=== PATIENT | female | born 1950 | race Caucasian/White ===

== ENCOUNTER 2017-12-23 14:26 | Emergency (ER) | payer OTHER ==
--- NOTE | 2017-12-23 16:50 | RAD REPORT ---
EXAM DESCRIPTION: VAS - CP - 12/23/2017 4:30 pm CLINICAL HISTORY: history of carotid artery plaque Syncope, CVA COMPARISON: CAROTID ARTERY BILATERAL dated 07/06/2007; HEAD BRAIN W O CONTRAST dated 06/15/2007 TECHNIQUE: Real-time sonographic evaluation of both carotid systems was performed. Doppler interroga tion was performed with waveform tracing bilaterally. FINDINGS: Normal high resistance waveforms are noted in both external carotid arteries. The common c arotid arteries and internal carotid arteries show normal low resistance waveforms. Significant hard plaquing is seen in both proximal internal carotid arteries. Peak systolic velocity is elevated in the proximal right ICA is 285 cm/second with elevated ICA/CCA ratio of 3.2. Peak systo lic velocity is elevated in the left mid internal carotid artery to 500 cm/second with ICA/CCA ratio measuring 6.3. Antegrade flow seen in both vertebral arteries. IMPRESSION: Significant multifocal atheromatous plaquing involving both proximal internal carotid ar teries. Bilateral hemodynamically significant carotid stenosis are present - including moderate to severe hem odynamically significant stenosis involving the proximal right ICA and severe hemodynamically signifi cant stenosis at the level the left mid ICA. Consider followup MR or CT angiography of the neck vessels for further detailed assessment of these f indings.
--- NOTE | 2017-12-23 17:29 | ER ---
Nurse's Notes [facility] Name: Rian Merlos Age: 67 yrs Sex: Female : 1950 Arrival Date: 12/23/2017 Time: 14:31 Bed 28 Private MD: None, None Diagnosis: Bilateral Carotid Artery Stenosis;Hypertensive heart disease Presentation: 12/23 14:39 Presenting complaint: Patient states: "I had a [facility] screening done yesterday and hb they recommended I follow up with my doctor within 24 hrs, but Dr. Rubio can't see me until Jan 01.". Transition of care: patient was not received from another setting of care. Onset of symptoms was December 23, 2017. Risk Assessment: Do you want to hurt yourself or someone else? Patient reports no desire to harm self or others. Care prior to arrival: None. 14:39 Method Of Arrival: Ambulatory hb 14:39 Acuity: GEOVANNA 4 hb 15:17 Initial Sepsis Screen: Does the patient meet any 2 criteria? No. Patient's initial rv sepsis screen is negative. Does the patient have a suspected source of infection? No. Patient's initial sepsis screen is negative. Historical: - Allergies: 14:40 Morphine; hb - PSHx: 14:40 titanium plate in neck; Hysterectomy; Knee surgery; cyst from breast; hb - Immunization history:: Adult Immunizations up to date. - Social history:: Smoking status: Patient/guardian denies using tobacco. - Ebola Screening: : No symptoms or risks identified at this time. Screenin:17 Abuse screen: Denies threats or abuse. Denies injuries from another. Nutritional rv screening: No deficits noted. Tuberculosis screening: No symptoms or risk factors identified. Fall Risk None identified. Assessment: 15:13 General: Appears in no apparent distress. comfortable, Behavior is calm, cooperative. rv Pain: Denies pain. Neuro: Level of Consciousness is awake, alert, obeys commands, Oriented to person, place, time, situation. Cardiovascular: Capillary refill < 3 seconds. Respiratory: Airway is patent. GI: No signs and/or symptoms were reported involving the gastrointestinal system. : No signs and/or symptoms were reported regarding the genitourinary system. EENT: No signs and/or symptoms were reported regarding the EENT system. Derm: Skin is intact. Vital Signs: 14:38 BP 149 / 89; Pulse 89; Resp 14; Temp 97.9; Pulse Ox 97% on R/A; hb 16:01 BP 186 / 81; Pulse 64; Pulse Ox 98% ; rv 16:34 BP 153 / 122; Pulse 74; Pulse Ox 99% on R/A; rv ED Course: 14:31 Patient arrived in ED. mr 14:32 None, None is Private Physician. mr 14:40 Triage completed. hb 14:40 Arm band placed on right wrist. hb 15:05 JulioC Scanlon PA is PHCP. cp 15:05 Moncho Wing MD is Attending Physician. cp 15:17 Patient has correct armband on for positive identification. Bed in low position. Call rv light in reach. Side rails up X 1. Adult w/ patient. Pulse ox on. NIBP on. 16:27 Ultrasound completed. Patient tolerated well. lc3 16:33 Patient moved back from ultrasound. lc3 17:42 No provider procedures requiring assistance completed. Patient did not have IV access rv during this emergency room visit. Administered Medications: 17:41 Drug: Aspirin Chewable Tablet 324 mg Route: PO; rv 17:41 Follow up: Response: Medication administered at discharge. rv 17:41 Drug: Metoprolol 25 mg Route: PO; rv 17:41 Follow up: Response: Medication administered at discharge. rv Outcome: 17:28 Discharge ordered by . cp 17:42 Discharged to home ambulatory. rv 17:42 Condition: good 17:42 Discharge instructions given to patient, Instructed on discharge instructions, follow up and referral plans. medication usage, Prescriptions given X 1. 17:43 Patient left the ED. rv Signatures: Charlette Cabrera mr Julio C Scanlon PA PA cp Eduard Dorsey lc3 Giovana Bravo, RN RN Conor Calixto RN RN rv
--- NOTE | 2017-12-23 17:29 | EDPHYS ---
Physician Documentation [facility] Name: Rian Merlos Age: 67 yrs Sex: Female : 1950 Arrival Date: 12/23/2017 Time: 14:31 Bed 28 Private MD: None, None ED Physician Moncho Wing HPI: 12/23 15:15 This 67 yrs old Female presents to ER via Ambulatory with complaints of Pt cp was told to come to ER. 15:15 abnormal test performed by [facility] Screening yesterday. cp 15:15 Patient reports abnormal results of carotid plaque screening test yesterday. No cp specific complaints expressed. Historical: - Allergies: 14:40 Morphine; hb - PSHx: 14:40 titanium plate in neck; Hysterectomy; Knee surgery; cyst from breast; hb - Immunization history:: Adult Immunizations up to date. - Social history:: Smoking status: Patient/guardian denies using tobacco. - Ebola Screening: : No symptoms or risks identified at this time. ROS: 15:20 Constitutional: Negative for body aches, chills, fever, poor PO intake. cp 15:20 Eyes: Negative for injury, pain, redness, and discharge. cp 15:20 ENT: Negative for drainage from ear(s), ear pain, sore throat, difficulty swallowing, difficulty handling secretions. 15:20 Cardiovascular: Negative for chest pain, edema, palpitations. 15:20 Respiratory: Negative for cough, shortness of breath, wheezing. 15:20 Abdomen/GI: Negative for abdominal pain, nausea, vomiting, and diarrhea, constipation. 15:20 : Negative for urinary symptoms. 15:20 Neuro: Negative for altered mental status, dizziness, headache, speech changes, syncope, near syncope, weakness. 15:20 All other systems are negative. Exam: 15:22 Constitutional: The patient appears in no acute distress, alert, awake, cp non-diaphoretic, non-toxic, well developed, well nourished. 15:22 Head/Face: Normocephalic, atraumatic. cp 15:22 Eyes: Periorbital structures: appear normal, Conjunctiva: normal, no exudate, no injection, Lids and lashes: appear normal, bilaterally. 15:22 ENT: External ear(s): are unremarkable, Nose: is normal, Mouth: is normal, Posterior pharynx: is normal, airway is patent, no erythema, no exudate, Voice: is normal. 15:22 Neck: ROM/movement: is normal, is supple, without pain, no range of motions limitations, no meningismus, no nuchal rigidity. 15:22 Chest/axilla: Inspection: normal, Palpation: is normal, no crepitus, no tenderness. 15:22 Cardiovascular: Rate: normal, Rhythm: regular, Pulses: Pulses are 2+ in right radial artery and left radial artery. Heart sounds: murmur, not appreciated, rub, not appreciated, gallop, not appreciated, Edema: is not appreciated, JVD: is not appreciated. 15:22 Respiratory: the patient does not display signs of respiratory distress, Respirations: normal, no use of accessory muscles, no retractions, no splinting, no tachypnea, labored breathing, is not present, Breath sounds: are clear throughout, no decreased breath sounds, no stridor, no wheezing. 15:22 Abdomen/GI: Inspection: abdomen appears normal, Bowel sounds: active, all quadrants, Palpation: abdomen is soft and non-tender, in all quadrants, rebound tenderness, is not appreciated, voluntary guarding, is not appreciated, involuntary guarding, is not appreciated. 15:22 Back: pain, is absent, ROM is normal. Vital Signs: 14:38 BP 149 / 89; Pulse 89; Resp 14; Temp 97.9; Pulse Ox 97% on R/A; hb 16:01 BP 186 / 81; Pulse 64; Pulse Ox 98% ; rv 16:34 BP 153 / 122; Pulse 74; Pulse Ox 99% on R/A; rv MDM: 15:05 Patient medically screened. 17:25 Data reviewed: vital signs, nurses notes, radiologic studies, ultrasound. 12/23 15:13 Order name: Carotid Artery Bilateral US 12/23 16:50 Order name: US; Complete Time: 17:08 EDMS Administered Medications: 17:41 Drug: Aspirin Chewable Tablet 324 mg Route: PO; rv 17:41 Follow up: Response: Medication administered at discharge. rv 17:41 Drug: Metoprolol 25 mg Route: PO; rv 17:41 Follow up: Response: Medication administered at discharge. rv Disposition: 19:09 Co-signature as Attending Physician, Moncho Wing MD. rn Disposition: 12/23/17 17:28 Discharged to Home. Impression: Bilateral Carotid Artery Stenosis, Hypertensive heart disease. - Condition is Stable. - Discharge Instructions: Hypertension, Carotid Angioplasty With Stent, How to Take Your Blood Pressure, [id number], Aspirin and Your Heart, Form - Blood Pressure Record Sheet. - Prescriptions for Metoprolol Tartrate 25 mg Oral Tablet - take 1 tablet by ORAL route 2 times per day with a meal; 20 tablet. - Medication Reconciliation Form, Thank You Letter, Antibiotic Education, Prescription Opioid Use form. - Follow up: Private Physician; When: 1 - 2 days; Reason: carotid stenosis. - Problem is new. - Symptoms are unchanged. Signatures: Dispatcher [employer] EDMS Moncho Wing MD MD rn Julio C Scanlon PA PA cp Giovana Bravo, RADHA RN Conor Reyna RN RN rv Corrections: (The following items were deleted from the chart) 17:31 17:28 12/23/2017 17:28 Discharged to Home. Impression: Bilateral Carotid Artery cp Stenosis. Condition is Stable. Forms are Medication Reconciliation Form, Thank You Letter, Antibiotic Education, Prescription Opioid Use. Follow up: Private Physician; When: 1 - 2 days; Reason: carotid stenosis. Problem is new. Symptoms are unchanged. cp 17:43 17:31 12/23/2017 17:28 Discharged to Home. Impression: Bilateral Carotid Artery rv Stenosis; Hypertensive heart disease. Condition is Stable. Discharge Instructions: Carotid Angioplasty With Stent, How to Take Your Blood Pressure, [id number], Aspirin and Your Heart, Form - Blood Pressure Record Sheet. Forms are Medication Reconciliation Form, Thank You Letter, Antibiotic Education, Prescription Opioid Use. Follow up: Private Physician; When: 1 - 2 days; Reason: carotid stenosis. Problem is new. Symptoms are unchanged. cp
[2017-12-23] MEDS ORDERED: METOPROLOL TAR 25 MG TAB ONE (17:39)
[2017-12-23 17:57] VITALS: TEMP 97.9
[2017-12-23 17:59] VITALS: BP 153/122; O2SAT 99
== END 2017-12-23 17:43 | disposition home or self-care (01) ==
LOC: ER 14:26
DX: I65.23 Occlusion and stenosis of bilateral carotid arteries (principal); I11.9 Hypertensive heart disease without heart failure; Z88.5 Allergy status to narcotic agent
CPT/HCPCS: 93880; 99284

== ENCOUNTER 2018-01-08 17:18 | Emergency (ER) | payer OTHER ==
[2018-01-08] MEDS ORDERED: HYDROCODONE/APAP 7.5/325 MG TAB ONE (17:46)
--- NOTE | 2018-01-08 18:18 | EDPHYS ---
Physician Documentation [facility] Name: Rian Merlos Age: 67 yrs Sex: Female : 1950 Arrival Date: 01/08/2018 Time: 17:21 Bed 14 Private MD: ED Physician Flip Contreras HPI: 01/08 17:42 This 67 yrs old Female presents to ER via Wheelchair with complaints of Foot jr8 Injury. 17:42 The patient presents with pain, that is acute, tenderness. The complaints affect the jr8 right foot. Context: The problem was sustained at home, resulted from the patient falling. Onset: The symptoms/episode began/occurred acutely, today. Modifying factors: The symptoms are alleviated by nothing. the symptoms are aggravated by weight bearing. Associated signs and symptoms: The patient has no apparent associated signs or symptoms. Severity of symptoms: At their worst the symptoms were moderate, in the emergency department the symptoms are unchanged. The patient has not experienced similar symptoms in the past. The patient has not recently seen a physician. Stated that her stool collapsed causing her to fall to ground. Right foot/heel region with moderate pain. Does not know how she did it exactly . Historical: - Allergies: 17:23 Morphine; sg - Home Meds: 17:37 gabapentin oral oral [Active]; Plavix 75 mg Oral tab 1 tab once daily [Active]; iw amlodipine oral [Active]; aspirin 81 mg Oral TbEC 1 tab once daily [Active]; - PMHx: 17:38 Hypertension; Hyperlipidemia; Myocardial infarction; iw 17:41 DVT; iw - PSHx: 17:23 titanium plate in neck; Hysterectomy; Knee surgery; cyst from breast; sg 17:41 Heart stents; iw - Immunization history:: Adult Immunizations up to date. - Social history:: Smoking status: Patient/guardian denies using tobacco. - Ebola Screening: : Patient negative for fever greater than or equal to 101.5 degrees Fahrenheit, and additional compatible Ebola Virus Disease symptoms Patient denies exposure to infectious person Patient denies travel to an Ebola-affected area in the 21 days before illness onset No symptoms or risks identified at this time. ROS: 17:42 Eyes: Negative for injury, pain, redness, and discharge, ENT: Negative for injury, jr8 pain, and discharge, Neck: Negative for injury, pain, and swelling, Cardiovascular: Negative for chest pain, palpitations, and edema, Respiratory: Negative for shortness of breath, cough, wheezing, and pleuritic chest pain, Abdomen/GI: Negative for abdominal pain, nausea, vomiting, diarrhea, and constipation, Back: Negative for injury and pain, Skin: Negative for injury, rash, and discoloration, Neuro: Negative for headache, weakness, numbness, tingling, and seizure. 17:42 MS/extremity: Positive for pain, tenderness, of the right dorsum of foot and heel, Negative for decreased range of motion, ecchymosis, paresthesias. Exam: 17:42 Eyes: Pupils equal round and reactive to light, extra-ocular motions intact. Lids and jr8 lashes normal. Conjunctiva and sclera are non-icteric and not injected. Cornea within normal limits. Periorbital areas with no swelling, redness, or edema. ENT: Nares patent. No nasal discharge, no septal abnormalities noted. Tympanic membranes are normal and external auditory canals are clear. Oropharynx with no redness, swelling, or masses, exudates, or evidence of obstruction, uvula midline. Mucous membranes moist. Neck: Trachea midline, no thyromegaly or masses palpated, and no cervical lymphadenopathy. Supple, full range of motion without nuchal rigidity, or vertebral point tenderness. No Meningismus. Cardiovascular: Regular rate and rhythm with a normal S1 and S2. No gallops, murmurs, or rubs. Normal PMI, no JVD. No pulse deficits. Respiratory: Lungs have equal breath sounds bilaterally, clear to auscultation and percussion. No rales, rhonchi or wheezes noted. No increased work of breathing, no retractions or nasal flaring. Abdomen/GI: Soft, non-tender, with normal bowel sounds. No distension or tympany. No guarding or rebound. No evidence of tenderness throughout. Back: No spinal tenderness. No costovertebral tenderness. Full range of motion. Skin: Warm, dry with normal turgor. Normal color with no rashes, no lesions, and no evidence of cellulitis. Neuro: Awake and alert, GCS 15, oriented to person, place, time, and situation. Cranial nerves II-XII grossly intact. Motor strength 5/5 in all extremities. Sensory grossly intact. Cerebellar exam normal. Normal gait. 17:42 Musculoskeletal/extremity: Extremities: grossly normal except: noted in the right foot: pain, tenderness, ROM: intact in all extremities, Circulation is intact in all extremities. Sensation intact. Vital Signs: 17:29 BP 168 / 76; Pulse 101; Resp 18; Pulse Ox 98% on R/A; tw2 18:38 BP 148 / 69; Pulse 86; Resp 17; Pulse Ox 98% on R/A; tw2 Procedures: 18:15 Splinting: Splint applied to right foot using Ortho 3D boot, applied by nurse. Examined jr8 by me, post splint application: neurovascular intact, 2+ distal pulses palpable, brisk capillary refill noted, Patient tolerated well. MDM: 17:30 Patient medically screened. jr8 18:15 Data reviewed: vital signs, nurses notes, radiologic studies, plain films, and as a jr8 result, I will discharge patient. Data interpreted: Pulse oximetry: on room air is 98 %. Interpretation: normal. Counseling: I had a detailed discussion with the patient and/or guardian regarding: the historical points, exam findings, and any diagnostic results supporting the discharge/admit diagnosis, radiology results, the need for outpatient follow up, a orthopedic surgeon, to return to the emergency department if symptoms worsen or persist or if there are any questions or concerns that arise at home. 01/08 17:34 Order name: Foot Right 3 View XRAY jr8 01/08 18:14 Order name: Splint; Complete Time: 18:38 jr8 Administered Medications: 17:40 Drug: [place] (7.5 mg-325 mg) 1 tabs Route: PO; tw2 18:37 Follow up: Response: No adverse reaction; Pain is decreased tw2 Disposition: 01/08/18 18:17 Discharged to Home. Impression: Displaced fracture of fifth metatarsal bone, right foot. - Condition is Stable. - Discharge Instructions: Avulsion Fracture of the Foot. - Prescriptions for Ultracet 37.5- 325 mg Oral Tablet - take 1 tablet by ORAL route every 6 hours - for up to 5 days; do not exceed 8 tablets per day.; 30 tablet. - Medication Reconciliation Form, Thank You Letter, Antibiotic Education, Prescription Opioid Use form. - Follow up: Neil Saba DPM; When: 5 - 6 days; Reason: Recheck today's complaints, Continuance of care, Re-evaluation by your physician. Follow up: Poncho Clark DPM; When: 2 - 3 days; Reason: Recheck today's complaints, Continuance of care, Re-evaluation by your physician. - Problem is new. - Symptoms have improved. Addendum: 01/10/2018 08:12 Co-signature as Attending Physician, Flip Contreras MD I agree with the assessment and w a plan of care. Signatures: Dispatcher [employer] EDMS Ochoa Scales RN RN Soco Chatterjee RN RN Hugo Jay PA PA jr8 Chio Goel RN RN tw2 Flip Contreras MD MD il Corrections: (The following items were deleted from the chart) 01/08 18:43 18:17 01/08/2018 18:17 Discharged to Home. Impression: Displaced fracture of fifth tw2 metatarsal bone, right foot. Condition is Stable. Forms are Medication Reconciliation Form, Thank You Letter, Antibiotic Education, Prescription Opioid Use. Follow up: Dr. Poncho Clark; When: 2 - 3 days; Reason: Recheck today's complaints, Continuance of care, Re-evaluation by your physician. Problem is new. Symptoms have improved. jr8
--- NOTE | 2018-01-08 18:18 | ER ---
Nurse's Notes [facility] Name: Rian Merlos Age: 67 yrs Sex: Female : 1950 Arrival Date: 01/08/2018 Time: 17:21 Bed 14 Private MD: Diagnosis: Displaced fracture of fifth metatarsal bone, right foot Presentation: 01/08 17:24 Presenting complaint: Patient states: pt went to sit on a small stool this morning, iw stool broke and she fell back and somehow twisted her right foot but doesn't remember exactly how she did it , no other injury, has pain to right heel, and top of foot, appears red, swollen, tender to touch. 17:24 Acuity: GEOVANNA 4 iw 17:26 Transition of care: patient was not received from another setting of care. Onset of tw2 symptoms was January 08, 2018. Risk Assessment: Do you want to hurt yourself or someone else? Patient reports no desire to harm self or others. Initial Sepsis Screen: Does the patient meet any 2 criteria? No. Patient's initial sepsis screen is negative. Does the patient have a suspected source of infection? No. Patient's initial sepsis screen is negative. Care prior to arrival: None. 17:26 Method Of Arrival: Wheelchair tw2 Triage Assessment: 17:31 General: Appears uncomfortable. Injury Description: fell backwards sitting on stool, tw2 thinks she rolled her right ankle. Historical: - Allergies: 17:23 Morphine; sg - Home Meds: 17:37 gabapentin oral oral [Active]; Plavix 75 mg Oral tab 1 tab once daily [Active]; iw amlodipine oral [Active]; aspirin 81 mg Oral TbEC 1 tab once daily [Active]; - PMHx: 17:38 Hypertension; Hyperlipidemia; Myocardial infarction; iw 17:41 DVT; iw - PSHx: 17:23 titanium plate in neck; Hysterectomy; Knee surgery; cyst from breast; sg 17:41 Heart stents; iw - Immunization history:: Adult Immunizations up to date. - Social history:: Smoking status: Patient/guardian denies using tobacco. - Ebola Screening: : Patient negative for fever greater than or equal to 101.5 degrees Fahrenheit, and additional compatible Ebola Virus Disease symptoms Patient denies exposure to infectious person Patient denies travel to an Ebola-affected area in the 21 days before illness onset No symptoms or risks identified at this time. Screenin:26 Abuse screen: Denies threats or abuse. Nutritional screening: No deficits noted. tw2 Tuberculosis screening: No symptoms or risk factors identified. Fall Risk None identified. Assessment: 17:27 General: Appears uncomfortable, Behavior is appropriate for age. Pain: Complains of tw2 pain in right foot. Neuro: Level of Consciousness is awake, alert, obeys commands, Oriented to person, place, time, situation. Cardiovascular: Denies chest pain, shortness of breath, Capillary refill < 3 seconds Patient's skin is warm and dry. 17:29 Respiratory: Airway is patent Respiratory effort is even, unlabored, Respiratory tw2 pattern is regular, symmetrical. GI: No signs and/or symptoms were reported involving the gastrointestinal system. : No signs and/or symptoms were reported regarding the genitourinary system. EENT: No signs and/or symptoms were reported regarding the EENT system. Derm: No signs and/or symptoms reported regarding the dermatologic system. Musculoskeletal: Circulation, motion, and sensation intact. Swelling present in right foot. 18:38 Reassessment: Patient appears in no apparent distress at this time. Patient and/or tw2 family updated on plan of care and expected duration. Pain level reassessed. Patient is alert, oriented x 3, equal unlabored respirations, skin warm/dry/pink. Patient states feeling better. Vital Signs: 17:29 BP 168 / 76; Pulse 101; Resp 18; Pulse Ox 98% on R/A; tw2 18:38 BP 148 / 69; Pulse 86; Resp 17; Pulse Ox 98% on R/A; tw2 ED Course: 17:21 Patient arrived in ED. mr 17:22 Arm band placed on. sg 17:25 Chio Goel, RN is Primary Nurse. tw2 17:26 Bed in low position. Call light in reach. Pulse ox on. NIBP on. tw2 17:29 Hugo Ochoa PA is PHCP. jr8 17:29 Flip Contreras MD is Attending Physician. jr8 17:34 Triage completed. iw 18:04 X-ray completed. Portable x-ray completed in exam room. Patient tolerated procedure kp1 well. 18:10 Foot Right 3 View XRAY In Process Unspecified. EDMS 18:16 Neil Saba DPM is Referral Physician. jr8 18:16 Referral Physician role handed off by Neil Saba DPM jr8 18:16 Poncho Clark DPM is Referral Physician. jr8 18:41 No provider procedures requiring assistance completed. Patient did not have IV access tw2 during this emergency room visit. Administered Medications: 17:40 Drug: [place] (7.5 mg-325 mg) 1 tabs Route: PO; tw2 18:37 Follow up: Response: No adverse reaction; Pain is decreased tw2 Outcome: 18:17 Discharge ordered by MD. jr8 18:41 Discharged to home via wheelchair, with family. tw2 18:41 Condition: stable 18:41 Discharge instructions given to patient, family, Instructed on discharge instructions, follow up and referral plans. safety practices, low fracture boot Demonstrated understanding of instructions, follow-up care, medications, fracture boot Prescriptions given X 1. 18:43 Patient left the ED. tw2 Signatures: Dispatcher [employer] EDMS Ochoa Scales RN RN Charlette Cabrera mr Soco Chatterjee, Hugo Thomas RN, PA PA jr8 Chio Goel RN RN tw2 Mar Watters 1
--- NOTE | 2018-01-08 18:49 | RAD REPORT ---
EXAM DESCRIPTION: RAD - Foot Right 3 View - 01/08/2018 6:12 pm CLINICAL HISTORY: Foot pain, twisting injury COMPARISON: None. FINDINGS: At the lateral base fifth metatarsal there is a triangular shaped bone density detached fr om the metatarsal. This transverse orientation is typical location for Landaverde fracture. There is some suggestion of cortication along the fracture line. This could indicate a fracture is subacute or even remote. Correlation is needed for any localizing symptoms. No other evidence for fracture. No other acute bone or joint finding. No air or foreign body in the soft tissues. IMPRESSION: Small Landaverde fracture is present lateral base of the fifth metatarsal. Fracture findings are not definitive for an acute process. Correlation is needed with any point tende rness at the base of the fifth metatarsal and any past history of a similar mechanism of injury.
[2018-01-08 18:51] VITALS: O2SAT 98
[2018-01-08 18:52] VITALS: BP 148/69
== END 2018-01-08 18:43 | disposition home or self-care (01) ==
LOC: ER 17:18
DX: S92.351A Displaced fracture of fifth metatarsal bone, right foot, initial encounter for closed fracture (principal); W19.XXXA Unspecified fall, initial encounter; Y93.9 Activity, unspecified; Y92.009 Unspecified place in unspecified non-institutional (private) residence as the place of occurrence of the external cause; I10 Essential (primary) hypertension; E78.5 Hyperlipidemia, unspecified; Z86.718 Personal history of other venous thrombosis and embolism; Z79.01 Long term (current) use of anticoagulants; Z79.82 Long term (current) use of aspirin; Z88.5 Allergy status to narcotic agent; Z95.818 Presence of other cardiac implants and grafts; I25.2 Old myocardial infarction
CPT/HCPCS: 99284

== ENCOUNTER 2020-02-03 08:07 | Emergency (ER) | payer OTHER ==
[2020-02-03] MEDS ORDERED: ONDANSETRON 4 MG (ODT) TAB ONE (08:58)
[2020-02-03] MEDS ORDERED: HYDROCODONE/APAP 10/325 TAB ONE (08:58)
--- NOTE | 2020-02-03 09:51 | EDPHYS ---
Physician Documentation [facility] Name: Rian Merlos Age: 69 yrs Sex: Female : 1950 Arrival Date: 02/03/2020 Time: 08:08 Bed 2 Private MD: ED Physician Prabhjot Foreman HPI: 02/02 09:12 This 69 yrs old Female presents to ER via Wheelchair with complaints of Foot kb Pain, Leg Pain. 09:12 The patient presents with pain, that is chronic. The complaints affect the left foot. kb Context: The problem was sustained at home, resulted from a chronic condition, the patient is not able to bear weight, the patient is not able to ambulate. Onset: The symptoms/episode began/occurred this morning. Modifying factors: The symptoms are alleviated by nothing, the symptoms are aggravated by weight bearing, movement. Associated signs and symptoms: The patient has no apparent associated signs or symptoms. Severity of symptoms: At their worst the symptoms were moderate, in the emergency department the symptoms are unchanged. The patient has experienced similar episodes in the past, chronically. The patient has not recently seen a physician. Pt reports left foot pain that started during the night and has persisted after getting out of bed. States she has a history of neuropathy so she has tingling, numbness and pain to bilateral feet, worse at night. States she wants to find out what is wrong. I recommended follow up with neurologist and pt told me she has already been to Dr Gutierres for this and he recommended she see pain management. . Historical: - Allergies: 08:27 Morphine; iw - PMHx: 08:27 DVT; Hyperlipidemia; Hypertension; Myocardial infarction; iw - PSHx: 08:27 titanium plate in neck; Hysterectomy; Knee surgery; cyst from breast; Heart stents; iw - Immunization history:: Adult Immunizations up to date. - Social history:: Smoking status: Patient/guardian denies using tobacco. ROS: 09:16 Constitutional: Negative for fever, chills, and weight loss, Cardiovascular: Negative kb for chest pain, palpitations, and edema, Respiratory: Negative for shortness of breath, cough, wheezing, and pleuritic chest pain, Abdomen/GI: Negative for abdominal pain, nausea, vomiting, diarrhea, and constipation, Back: Negative for injury and pain, Skin: Negative for injury, rash, and discoloration, Neuro: Negative for headache, weakness, numbness, tingling, and seizure. 09:16 MS/extremity: Positive for pain, of the left foot. Exam: 09:16 Constitutional: This is a well developed, well nourished patient who is awake, alert, kb and in no acute distress. Head/Face: Normocephalic, atraumatic. Chest/axilla: Normal chest wall appearance and motion. Nontender with no deformity. No lesions are appreciated. Cardiovascular: Regular rate and rhythm with a normal S1 and S2. No gallops, murmurs, or rubs. Normal PMI, no JVD. No pulse deficits. Respiratory: Lungs have equal breath sounds bilaterally, clear to auscultation and percussion. No rales, rhonchi or wheezes noted. No increased work of breathing, no retractions or nasal flaring. Abdomen/GI: Soft, non-tender, with normal bowel sounds. No distension or tympany. No guarding or rebound. No evidence of tenderness throughout. Back: No spinal tenderness. No costovertebral tenderness. Full range of motion. Skin: Warm, dry with normal turgor. Normal color with no rashes, no lesions, and no evidence of cellulitis. Neuro: Awake and alert, GCS 15, oriented to person, place, time, and situation. Cranial nerves II-XII grossly intact. Motor strength 5/5 in all extremities. Sensory grossly intact. Cerebellar exam normal. Normal gait. 09:16 Musculoskeletal/extremity: Extremities: grossly normal except: noted in the left foot: decreased ROM, pain, tenderness, ROM: limited active range of motion due to pain, in the left foot, Circulation is intact in all extremities. Sensation intact. Weight bearing: is unable to bear weight. Vital Signs: 08:27 BP 151 / 84; Pulse 92; Resp 16; Temp 98.9; Pulse Ox 99% on R/A; Weight 48.53 kg; Pain iw 10/10; 10:00 BP 158 / 68; Pulse 82; Resp 16 S; Pulse Ox 98% on R/A; ca1 MDM: 08:28 Patient medically screened. kb 09:17 Data reviewed: vital signs, nurses notes. Data interpreted: Pulse oximetry: on room air kb is 99 %. Interpretation: normal. 09:31 ED course: Awaiting x-ray. kb 09:50 Counseling: I had a detailed discussion with the patient and/or guardian regarding: the kb historical points, exam findings, and any diagnostic results supporting the discharge/admit diagnosis, radiology results, the need for outpatient follow up, a family practitioner, to return to the emergency department if symptoms worsen or persist or if there are any questions or concerns that arise at home. 02/02 08:42 Order name: Foot Left 3 View XRAY; Complete Time: 10:02 kb Administered Medications: 08:49 Drug: Zofran (Ondansetron) 4 mg Route: PO; em 10:15 Follow up: Response: No adverse reaction; Nausea is decreased ca1 08:51 Drug: [place] 10 mg-325 mg 1 tabs Route: PO; em 10:15 Follow up: Response: No adverse reaction; Pain is decreased; RASS: Alert and Calm (0) ca1 Disposition: 11:14 Co-signature as Attending Physician, Prabhjot Foreman MD I agree with the assessment and kdr plan of care. Disposition: 02/03/20 09:50 Discharged to Home. Impression: Pain in left foot - neuropathy. - Condition is Stable. - Discharge Instructions: Neuropathic Pain. - Prescriptions for Ibuprofen 800 mg Oral Tablet - take 1 tablet by ORAL route every 8 hours As needed take with food; 30 tablet. Cyclobenzaprine 10 mg Oral Tablet - take 1 tablet by ORAL route every 8 hours As needed; 21 tablet. - Medication Reconciliation Form, Thank You Letter, Antibiotic Education, Prescription Opioid Use form. - Follow up: Emergency Department; When: As needed; Reason: Worsening of condition. Follow up: Private Physician; When: 2 - 3 days; Reason: Recheck today's complaints, Continuance of care, Re-evaluation by your physician. Signatures: Dispatcher [employer] Shanti Henderson, FATOUMATA STARK-Shaista Clemons RN Prabhjot Moran MD MD kdr Munoz, Edgar, RN RN em Williams, Irene, RN RN iw Acob, Charla GARCIA ca1 Corrections: (The following items were deleted from the chart) 08:27 08:27 Immunization history: Adult Immunizations [facility] 10:20 09:50 02/03/2020 09:50 Discharged to Home. Impression: Pain in left foot - neuropathy. sv Condition is Stable. Forms are Medication Reconciliation Form, Thank You Letter, Antibiotic Education, Prescription Opioid Use. Follow up: Emergency Department; When: As needed; Reason: Worsening of condition. Follow up: Private Physician; When: 2 - 3 days; Reason: Recheck today's complaints, Continuance of care, Re-evaluation by your physician. kb
--- NOTE | 2020-02-03 09:51 | ER ---
Nurse's Notes [facility] Name: Rian Merlos Age: 69 yrs Sex: Female : 1950 Arrival Date: 02/03/2020 Time: 08:08 Bed 2 Private MD: Diagnosis: Pain in left foot-neuropathy Presentation: 02/02 08:25 Chief complaint: Patient states: my feet go numb, and cramp real bad at night, last iw night was the worst, now left foot and leg are hurting, has hx of neuropathy. Coronavirus screen: At this time, the client does not indicate any symptoms associated with coronavirus-19. Ebola Screen: Patient negative for fever greater than or equal to 101.5 degrees Fahrenheit, and additional compatible Ebola Virus Disease symptoms Patient denies exposure to infectious person. Patient denies travel to an Ebola-affected area in the 21 days before illness onset. No symptoms or risks identified at this time. Initial Sepsis Screen: Does the patient meet any 2 criteria? No. Patient's initial sepsis screen is negative. Does the patient have a suspected source of infection? No. Patient's initial sepsis screen is negative. Risk Assessment: Do you want to hurt yourself or someone else? Patient reports no desire to harm self or others. Onset of symptoms was February 02, 2020. 08:25 Method Of Arrival: Wheelchair iw 08:25 Acuity: GEOVANNA 4 iw Historical: - Allergies: 08:27 Morphine; iw - PMHx: 08:27 DVT; Hyperlipidemia; Hypertension; Myocardial infarction; iw - PSHx: 08:27 titanium plate in neck; Hysterectomy; Knee surgery; cyst from breast; Heart stents; iw - Immunization history:: Adult Immunizations up to date. - Social history:: Smoking status: Patient/guardian denies using tobacco. Screenin:43 Abuse screen: Denies threats or abuse. Nutritional screening: No deficits noted. em Tuberculosis screening: No symptoms or risk factors identified. Fall Risk None identified. Assessment: 08:45 General: Appears in no apparent distress. uncomfortable, Behavior is calm, cooperative, em appropriate for age, Denies fever. Pain: Complains of pain in left foot Pain currently is 10 out of 10 on a pain scale. Neuro: Level of Consciousness is awake, alert, obeys commands, Oriented to person, place, time, situation, Appropriate for age. Cardiovascular: Capillary refill < 3 seconds Patient's skin is warm and dry. Respiratory: Airway is patent Respiratory effort is even, unlabored, Respiratory pattern is regular, symmetrical. Derm: Skin is intact, is fragile, is thin, Skin is pink, warm \T\ dry. Musculoskeletal: Capillary refill < 3 seconds, Range of motion: intact in all extremities, Swelling present in dorsum of left foot. 10:00 Reassessment: Patient appears in no apparent distress at this time. Patient is alert, ca1 oriented x 3, equal unlabored respirations, skin warm/dry/pink. Patient states feeling better. Vital Signs: 08:27 BP 151 / 84; Pulse 92; Resp 16; Temp 98.9; Pulse Ox 99% on R/A; Weight 48.53 kg; Pain iw 10; 10:00 BP 158 / 68; Pulse 82; Resp 16 S; Pulse Ox 98% on R/A; ca1 ED Course: 08:08 Patient arrived in ED. ds1 08:13 Shanti Shah FNP-C [facility]. kb 08:13 Prabhjot Foreman MD is Attending Physician. kb 08:26 Triage completed. iw 08:27 Arm band placed on. iw 08:28 Khurram Dennis, RN is Primary Nurse. em 08:43 Patient has correct armband on for positive identification. Bed in low position. Call em light in reach. 09:37 Foot Left 3 View XRAY In Process Unspecified. EDMS 10:15 No provider procedures requiring assistance completed. Patient did not have IV access ca1 during this emergency room visit. Administered Medications: 08:49 Drug: Zofran (Ondansetron) 4 mg Route: PO; em 10:15 Follow up: Response: No adverse reaction; Nausea is decreased ca1 08:51 Drug: [place] 10 mg-325 mg 1 tabs Route: PO; em 10:15 Follow up: Response: No adverse reaction; Pain is decreased; RASS: Alert and Calm (0) ca1 Outcome: 09:50 Discharge ordered by . kb 10:15 Discharged to home via wheelchair, with family. ca1 10:15 Condition: stable 10:15 Discharge instructions given to patient, Instructed on discharge instructions, follow up and referral plans. no driving heavy equipment, Demonstrated understanding of instructions, follow-up care, medications, Prescriptions given X 2. 10:20 Patient left the ED. sv Signatures: Dispatcher [employer] Shanti Henderson, ETHNOGRAPHER-C ETHNOGRAPHER-Shaista Clemons, RN RN Khurram Cote, RN RN Akua Zurita ds1 Soco Chatterjee RN RN iw Acob, Cheryl, RN RN ca1 Corrections: (The following items were deleted from the chart) 08:27 08:27 Immunization history: Adult Immunizations [facility]
--- NOTE | 2020-02-03 09:58 | RAD REPORT ---
EXAM DESCRIPTION: RAD - Foot Left 3 View - 02/03/2020 9:37 am CLINICAL HISTORY: PAIN COMPARISON: No comparisons FINDINGS: Mild osteopenia is seen. No fracture or dislocation evident.
[2020-02-03 10:38] VITALS: TEMP 98.9
[2020-02-03 10:39] VITALS: BP 158/68; O2SAT 98
== END 2020-02-03 10:20 | disposition home or self-care (01) ==
LOC: ER 08:07
DX: G62.9 Polyneuropathy, unspecified (principal); I10 Essential (primary) hypertension; Z88.5 Allergy status to narcotic agent; Z95.818 Presence of other cardiac implants and grafts
CPT/HCPCS: 99283

== ENCOUNTER 2020-10-10 22:54 | Emergency (ER) | payer OTHER ==
[2020-10-11] MEDS ORDERED: HYDROCODONE/APAP 10/325 TAB ONE (00:17)
--- NOTE | 2020-10-11 00:25 | ER ---
Nurse's Notes [facility] Name: Rian Merlos Age: 69 yrs Sex: Female : 1950 Arrival Date: 10/10/2020 Time: 23:07 Bed 18 Private MD: Diagnosis: Pain in left foot Presentation: 10/10 23:18 Chief complaint: Patient states: Reports pain in the left foot that started July. ea Worsening ever since. Coronavirus screen: At this time, the client does not indicate any symptoms associated with coronavirus-19. Ebola Screen: No symptoms or risks identified at this time. Initial Sepsis Screen: Does the patient meet any 2 criteria? No. Patient's initial sepsis screen is negative. Does the patient have a suspected source of infection? No. Patient's initial sepsis screen is negative. Risk Assessment: Do you want to hurt yourself or someone else? Patient reports no desire to harm self or others. Onset of symptoms was October 10, 2020. 23:18 Method Of Arrival: Wheelchair ea 23:18 Acuity: GEOVANNA 3 ea Historical: - Allergies: 23:18 Morphine; ea - PMHx: 23:18 Myocardial infarction; Hypertension; Hyperlipidemia; DVT; ea - PSHx: 23:18 Heart stents; cyst from breast; Knee surgery; Hysterectomy; titanium plate in neck; ea - Immunization history:: Adult Immunizations unknown. - Social history:: Patient uses Patient/guardian denies using alcohol, street drugs, The patient lives with family, Smoking status: unknown. - Family history:: not pertinent. Screenin:17 Abuse screen: Denies threats or abuse. Nutritional screening: No deficits noted. ea Tuberculosis screening: No symptoms or risk factors identified. Fall Risk None identified. Assessment: 23:20 General: Appears in no apparent distress. Behavior is appropriate for age, restless. ea Pain: Complains of pain in left foot. Neuro: Level of Consciousness is awake, alert, obeys commands. Neuro: Oriented to person, place, time. Respiratory: Airway is patent Respiratory effort is even, unlabored, Respiratory pattern is regular, symmetrical. Derm: redness noted to left foot toes. 10/11 00:20 Reassessment: Patient and/or family updated on plan of care and expected duration. Pain ea level reassessed. Patient is alert, oriented x 3, equal unlabored respirations, skin warm/dry/pink. 00:39 Reassessment: Patient and/or family updated on plan of care and expected duration. Pain ea level reassessed. Patient is alert, oriented x 3, equal unlabored respirations, skin warm/dry/pink. Discharge instruction given to patient verbalized the understanding of instruction. Vital Signs: 10/10 23:18 BP 160 / 97; Pulse 82; Resp 18; Temp 98.4; Pulse Ox 98% ; Weight 58.97 kg; Height 5 ft. ea 3 in. (160.02 cm); 23:18 Body Mass Index 23.03 (58.97 kg, 160.02 cm) ea ED Course: 23:07 Patient arrived in ED. ag3 23:16 Darryl Harrison MD is Attending Physician. khoi 23:17 Aydee Neves RN is Primary Nurse. ea 23:17 Patient has correct armband on for positive identification. Bed in low position. Call ea light in reach. Side rails up X2. Pulse ox on. NIBP on. 23:20 Triage completed. ea 23:20 Arm band placed on right wrist. Patient placed in an exam room, on a stretcher, on ea pulse oximetry. 10/11 00:25 No provider procedures requiring assistance completed. Patient did not have IV access ea during this emergency room visit. Administered Medications: 00:01 Drug: [place] (HYDROcodone-acetaminophen) 10 mg-325 mg 1 tabs {Note: rass 0.} Route: PO; ea 00:35 Follow up: Response: No adverse reaction ea Outcome: 00:25 Discharge ordered by . khoi 00:39 Discharged to home ambulatory, with family. ea 00:39 Condition: stable 00:39 Discharge instructions given to patient, family, Instructed on discharge instructions, follow up and referral plans. Demonstrated understanding of instructions, follow-up care, Prescriptions given X 1. 00:40 Patient left the ED. ea Signatures: Aydee Neves RN RN Darryl Smith MD MD ma2 Gomez, Alice 3 Corrections: (The following items were deleted from the chart) 00:01 00:01 [place] (HYDROcodone-acetaminophen) 10 mg-325 mg 1 tabs PO ea ea
--- NOTE | 2020-10-11 00:26 | EDPHYS ---
Physician Documentation [facility] Name: Rian Merlos Age: 69 yrs Sex: Female : 1950 Arrival Date: 10/10/2020 Time: 23:07 Bed 18 Private MD: ED Physician Darryl Harrison HPI: 10/11 00:22 This 69 yrs old Female presents to ER via Wheelchair with complaints of Foot ma2 Pain. 00:22 The patient presents with pain. Context: The problem was sustained at home. ma2 00:23 Onset: The symptoms/episode began/occurred gradually, 1 day(s) ago. Associated signs ma2 and symptoms: Pertinent negatives: nausea, numbness, rash, swelling. Severity of symptoms: At their worst the symptoms were mild, in the emergency department the symptoms are unchanged. The patient has not experienced similar symptoms in the past. Historical: - Allergies: 10/10 23:18 Morphine; ea - PMHx: 23:18 Myocardial infarction; Hypertension; Hyperlipidemia; DVT; ea - PSHx: 23:18 Heart stents; cyst from breast; Knee surgery; Hysterectomy; titanium plate in neck; ea - Immunization history:: Adult Immunizations unknown. - Social history:: Patient uses Patient/guardian denies using alcohol, street drugs, The patient lives with family, Smoking status: unknown. - Family history:: not pertinent. ROS: 10/11 00:23 MS/extremity: Negative for bite, decreased range of motion, deformity, erythema, ma2 tingling, warmth. Constitutional: Negative for fever, chills, and weight loss, Eyes: Negative for injury, pain, redness, and discharge, ENT: Negative for injury, pain, and discharge. Exam: 00:23 Constitutional: This is a well developed, well nourished patient who is awake, alert, ma2 and in no acute distress. Eyes: Pupils equal round and reactive to light, extra-ocular motions intact. Lids and lashes normal. Conjunctiva and sclera are non-icteric and not injected. Cornea within normal limits. Periorbital areas with no swelling, redness, or edema. ENT: Nares patent. No nasal discharge, no septal abnormalities noted. Tympanic membranes are normal and external auditory canals are clear. Oropharynx with no redness, swelling, or masses, exudates, or evidence of obstruction, uvula midline. Mucous membranes moist. Neck: Trachea midline, no thyromegaly or masses palpated, and no cervical lymphadenopathy. Supple, full range of motion without nuchal rigidity, or vertebral point tenderness. No Meningismus. Chest/axilla: Normal chest wall appearance and motion. Nontender with no deformity. No lesions are appreciated. Cardiovascular: Regular rate and rhythm with a normal S1 and S2. No gallops, murmurs, or rubs. Normal PMI, no JVD. No pulse deficits. Respiratory: Lungs have equal breath sounds bilaterally, clear to auscultation and percussion. No rales, rhonchi or wheezes noted. No increased work of breathing, no retractions or nasal flaring. Abdomen/GI: Soft, non-tender, with normal bowel sounds. No distension or tympany. No guarding or rebound. No evidence of tenderness throughout. Back: No spinal tenderness. No costovertebral tenderness. Full range of motion. Skin: Warm, dry with normal turgor. Normal color with no rashes, no lesions, and no evidence of cellulitis. MS/ Extremity: Pulses equal, no cyanosis. Neurovascular intact. Full, normal range of motion. Neuro: Awake and alert, GCS 15, oriented to person, place, time, and situation. Cranial nerves II-XII grossly intact. Motor strength 5/5 in all extremities. Sensory grossly intact. Cerebellar exam normal. Normal gait. Vital Signs: 10/10 23:18 BP 160 / 97; Pulse 82; Resp 18; Temp 98.4; Pulse Ox 98% ; Weight 58.97 kg; Height 5 ft. ea 3 in. (160.02 cm); 23:18 Body Mass Index 23.03 (58.97 kg, 160.02 cm) ea MDM: 23:18 Patient medically screened. ma2 10/11 00:23 Differential diagnosis: sprain, arthritis. Data reviewed: vital signs, nurses notes. ma2 Counseling: I had a detailed discussion with the patient and/or guardian regarding: the historical points, exam findings, and any diagnostic results supporting the discharge/admit diagnosis, the presence of at least one elevated blood pressure reading (>120/80) during this emergency department visit, the need for outpatient follow up. 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 Administered Medications: 00:01 Drug: [place] (HYDROcodone-acetaminophen) 10 mg-325 mg 1 tabs {Note: rass 0.} Route: PO; ea 00:35 Follow up: Response: No adverse reaction ea Disposition: 10/11/20 00:25 Discharged to Home. Impression: Pain in left foot. - Condition is Stable. - Discharge Instructions: Foot Pain. - Medication Reconciliation Form, Thank You Letter, Antibiotic Education, Prescription Opioid Use form. - Follow up: Private Physician; When: Tomorrow; Reason: Continuance of care. Signatures: Aydee Neves RN RN ea Alzahri, Mohammad, MD MD ma2 Corrections: (The following items were deleted from the chart) 00:40 00:25 10/11/2020 00:25 Discharged to Home. Impression: Pain in left foot. Condition is ea Stable. Forms are Medication Reconciliation Form, Thank You Letter, Antibiotic Education, Prescription Opioid Use. Follow up: Private Physician; When: Tomorrow; Reason: Continuance of care. ma2
[2020-10-11 01:56] VITALS: BP 160/97; TEMP 98.4; O2SAT 98
== END 2020-10-11 00:40 | disposition home or self-care (01) ==
LOC: ER 22:54
DX: M79.672 Pain in left foot (principal); I10 Essential (primary) hypertension; I25.2 Old myocardial infarction; Z88.5 Allergy status to narcotic agent; Z95.818 Presence of other cardiac implants and grafts
CPT/HCPCS: 99283

== ENCOUNTER 2021-06-29 15:00 | Emergency (ER) | payer MEDICARE ==
--- OUTSIDE RECORDS SUMMARY | 2021-06-29 15:34 | XMS REPORT | Continuity of Care Document ---
:1950 Author Organization [facility] t Address [address] [place] [address] Care Team Providers Name Role Phone Manan Somers Attending Clinician Unavailable MART Attending Clinician Unavailable AWE Attending Clinician Unavailable MD CHRISTIAN CACERES Attending Clinician Unavailable LAEPEYTON Admitting Clinician Unavailable MD CHRISTIAN CACERES Admitting Clinician Unavailable Payers Payer Name Policy Type Policy Number Effective Date Expiration Date [id number] (MEDICARE 00:00:00 REPLACEMENT HMO) Problems This patient has no known problems. Allergies, Adverse Reactions, Alerts This patient has no known allergies or adverse reactions. Medications This patient has no known medications. Procedures This patient has no known procedures. Encounters Start End Encounter Admission Attending Care Care Encounter Source Date/Time Date/Time Type Type Clinicians Facility Department ID 2021-06-13 Outpatient Somers, [facility] [id number] [facility] [address] 14:30:45 [facility] 2021-06-13 Outpatient Somers [facility] [id number] [address] 14:19:25 Tristen [id number] [facility] 2021-06-13 Outpatient Somers, [facility] [id number] 14:04:08 Tristen [id number] [facility] 2021-06-20 2021-06-20 ambulatory [facility] [id number] [facility] 2021-05-22 2021-05-22 ambulatory [facility] [id number] [facility] 2021-04-18 2021-04-18 ambulatory [facility] [id number] [facility] 2021-03-13 2021-03-13 Outpatient ST[facility] [id number] [facility] 2021-03-13 2021-03-13 Outpatient [facility] [id number] [facility] 2021-03-05 2021-03-05 Outpatient DMG [facility] [id number] [facility] 11[facility]01:00 11:01:00 [facility] 2021-03-05 2021-03-05 Outpatient MART, CRISPIN [facility] [id number] [place] 00:00:00 00:00:[address] 2021-03-05 2021-03-05 Outpatient MART, CR[facility]PIN [facility] [id number] [place] 00:00:00 00:00:[address] 2021-03-05 2021-03-05 Outpatient [facility] [id number] [address] [place] 00:00:00 00:00:[address] 2021-02-03 2021-02-10 Inpatient AWE, [facility] [id number] [place] 00:00:00 00:00:00 VALE [address] 2021-01-30 2021-01-31 Outpatient MART, CRISPIN [facility] [id number] [place] 00:00:00 00:00:[address] 2021-01-30 2021-01-30 Outpatient MART, CRISPIN [facility] [id number] [place] 00:00:00 00:00:[address] 2021-01-30 2021-01-30 Outpatient MART, CRISPIN [facility] [id number] [place] 00:00:00 00:00:[address] Results Test Description Test Time Test Comments Results Result Comments Source SARS-CoV-2 (COVID-19) RNA [Presence] in Respiratory sp ecimen by 2021-02-03 19:07:21 VINH with probe detection Test Item Value Reference Range Interpretation Comme nts SARS-CoV-2 (COVID-19) RNA [Presence] in Respiratory Not detected No t-Detected specimen by VINH with probe detection (test code = 64974-6) Whether patient is employed in a healthcare setting (test code = 61929-4) Whether the patient has symptoms related to condition of interest (test code = 81439-0) Patient was hospitalized because of this condition (test code = 88145-8) Whether the patient was admitted to intensive care unit (ICU) for condition of interest (test code = 34183-7) Whether patient resides in a congregate care setting (test code = 59133-7)
--- NOTE | 2021-06-29 19:20 | ER ---
Nurse's Notes [facility] Name: Rian Merlos Age: 70 yrs Sex: Female : 1950 Arrival Date: 06/29/2021 Time: 15:05 Bed Treatment Private MD: Diagnosis: Presentation: 06/29 15:12 Chief complaint: Patient states: R lower back pain that radiates around to R pelvic ll1 area since Friday. + N/V. LUQ/L lower chest pain started today. No fever. Coronavirus screen: Vaccine status: Patient reports receiving the 2nd dose of the covid vaccine. Client denies travel out of the [place] in the last 14 days. At this time, the client does not indicate any symptoms associated with coronavirus-19. Ebola Screen: Patient denies travel to an Ebola-affected area in the 21 days before illness onset. Initial Sepsis Screen: Does the patient meet any 2 criteria? No. Patient's initial sepsis screen is negative. Does the patient have a suspected source of infection? No. Patient's initial sepsis screen is negative. Risk Assessment: Do you want to hurt yourself or someone else? Patient reports no desire to harm self or others. Onset of symptoms was June 27, 2021. 15:12 Method Of Arrival: Ambulatory ll1 15:12 Acuity: GEOVANNA 3 ll1 Triage Assessment: 15:26 General: Appears uncomfortable, Behavior is calm, cooperative, appropriate for age. ll1 Pain: Complains of pain in R flank. GI: Reports nausea, vomiting. Musculoskeletal: Reports pain in R flank and LUQ. Historical: - Allergies: 15:14 Morphine; ll1 - PMHx: 15:14 DVT; Hyperlipidemia; Hypertension; Myocardial infarction; ll1 - PSHx: 15:14 stents leg, 1 heart stent; ll1 - Immunization history:: Client reports receiving the 2nd dose of the Covid vaccine, Flu vaccine is up to date. - Social history:: Smoking status: Patient reports the use of cigarette tobacco products, denies chronic smoking, but will smoke occasionally, trying to quit. Vital Signs: 15:12 BP 162 / 64; Pulse 80; Resp 17; Temp 98.0; Pulse Ox 100% ; Weight 48.99 kg; Height 5 ll1 ft. 3 in. (160.02 cm); Pain 9/10; 15:12 Body Mass Index 19.13 (48.99 kg, 160.02 cm) ll1 ED Course: 15:05 Patient arrived in ED. mr 15:14 Triage completed. ll1 15:15 Arm band placed on. ll1 15:26 EKG completed in triage. Results shown to MD. 1 19:14 Alex Burnham MD is Attending Physician. 7 Administered Medications: No medications were administered Outcome: 19:20 Patient left the ED. vc1 Signatures: Kathryn Cabrera Lynsay, RN RN 1 Alex Burnham MD MD 7 Milady Alonso RN RN 1 Corrections: (The following items were deleted from the chart) 15:25 15:12 Chief complaint: Patient states: R lower back pain that radiates around to R ll1 pelvic area since Friday. + N/V. LUQ abd pain started today. No fever ll1
[2021-06-29 19:27] VITALS: BP 162/64; TEMP 98; O2SAT 100
== END 2021-06-29 19:20 | disposition left against medical advice (07) ==
LOC: ER 15:00
DX: Z53.21 Procedure and treatment not carried out due to patient leaving prior to being seen by health care provider (principal)
CPT/HCPCS: 93005; 99281

== ENCOUNTER 2021-12-29 21:27 | Emergency (ER) | payer MEDICARE ==
--- OUTSIDE RECORDS SUMMARY | 2021-12-29 21:30 | XMS REPORT | Continuity of Care Document ---
:1950 Author Organization [facility] t Address [address] [place] [address] Care Team Providers Name Role Phone Tristen Somers Attending Clinician Unavailable RUEL ORDONEZ Attending Clinician Unavailable MD ANGELES CACERES Attending Clinician Unavailable DO ANTOINE CRESPO Attending Clinician Unavailable CRISPIN CEVALLOS Attending Clinician Unavailable VALE BUSTAMANTE Attending Clinician Unavailable MD ANGELES CACERES Attending Clinician Unavailable ANGELES CACERES Admitting Clinician Unavailable MD ANGELES CACERES Admitting Clinician Unavailable Payers Payer Name Policy Type Policy Number Effective Date Expiration Date [facility] [id number] 2021 (MEDICARE 00:00:00 REPLACEMENT HMO) Problems This patient has no known problems. Allergies, Adverse Reactions, Alerts This patient has no known allergies or adverse reactions. Medications This patient has no known medications. Procedures This patient has no known procedures. Encounters Start End Encounter Admission Attending Care Care Encounter Source Date/Time Date/Time Type Type Clinicians Facility Department ID 2021-06-13 Outpatient Somers [facility] [id number] [facility] 14:30:45 Tristen [facility] 2021-06-13 Outpatient Somers [facility] [id number] Common 14:19:25 Tristen [id number] [facility] 2021-06-13 Outpatient Somers, [facility] [id number] Common 14:04:08 Tristen [id number] [facility] 2021-12-27 2021-12-27 ambulatory [facility]C [facility] [id number] Common 00:00:00 00:00:00 [facility] 2021-12-13 2021-12-13 ambulatory [facility]MLC [facility] [id number] Common 00:00:00 00:00:00 [facility] 2021-12-11 2021-12-11 ambulatory [facility]LMLC [facility] [id number] Common 00:00:00 00:00:00 [facility] 2021-11-30 2021-11-30 Outpatient DMG DMG [id number] [facility] 07:16:00 07:16:00 [facility] 2021-10-17 2021-10-17 ambulatory [facility]LMLC [facility] [id number] Common 00:00:00 00:00:00 [facility] 2021-09-21 2021-09-21 ambulatory STLMLC [facility] [id number] Common 00:00:00 00:00:00 [facility] 2021-09-18 2021-09-18 ambulatory [facility]MLC [facility] [id number] Common 00:00:00 00:00:00 [facility] 2021-09-14 2021-09-14 ambulatory STLMLC [facility] [id number] Common 00:00:00 00:00:00 [facility] 2021-08-31 2021-09-12 Inpatient [facility] [id number] [place] 00:00:00 00:00:00 , RUEL [facility] 2021-08-07 2021-08-07 ambulatory [facility]LMLC [facility] [id number] Common 00:00:00 00:00:00 [facility] 2021-06-29 2021-06-29 ambulatory [facility]MLC [facility] [id number] Common 00:00:00 00:00:00 [facility] 2021-06-20 2021-06-20 ambulatory [facility]MLC [facility] [id number] Common 00:00:00 00:00:00 [facility] 2021-05-22 2021-05-22 ambulatory [facility]LMLC [facility] [id number] Common 00:00:00 00:00:00 [facility] 2021-04-18 2021-04-18 ambulatory [facility]LMLC [facility] [id number] Common 00:00:00 00:00:00 [facility] 2021-03-13 2021-03-13 Outpatient [facility]MLC [facility] [id number] Common 00:00:00 00:00:00 [facility] 2021-03-13 2021-03-13 Outpatient [facility]LMLC [facility] [id number] Common 00:00:00 00:00:00 [facility] 2021-03-05 2021-03-05 Outpatient DMG DMG [id number] [facility] 11:01:00 11:01:00 1018 [facility] 2021-03-05 2021-03-05 Outpatient MART, CRISPIN [facility] [id number] [place] 00:00:00 00:00:[address] 2021-03-05 2021-03-05 Outpatient MART, CR[facility] [id number] [place] 00:00:00 00:00:[address] 2021-03-05 2021-03-05 Outpatient [facility] [id number] 701 [place] 00:00:00 00:00:[address] 2021-02-03 2021-02-10 Inpatient AWE, [facility] [id number] [place] 00:00:00 00:00:00 VALE [address] 2021-01-30 2021-01-31 Outpatient MART, CR[facility] [id number] [place] 00:00:00 00:00:[address] 2021-01-30 2021-01-30 Outpatient MART, [facility] [id number] [place] 00:00:00 00:00:[address] 2021-01-30 2021-01-30 Outpatient MART, [facility] [id number] [place] 00:00:00 00:00:[address] Results Test Description Test Time Test Comments Results Result Comments Source SARS-CoV-2 (COVID-19) RNA [Presence] in Respiratory sp ecimen by 2021-09-05 05:00:28 VINH with probe detection Test Item Value Reference Range Interpretation Comme nts SARS-CoV-2 (COVID-19) RNA [Presence] in Respiratory specimen by Not detected VINH with probe detection (test code = 95171-7) Whether patient is employed in a healthcare setting (test code = Un known 38551-2) Whether the patient has symptoms related to condition of interest U nknown (test code = 25080-4) Whether the patient was hospitalized for condition of interest Unkn own (test code = 17023-2) Whether the patient was admitted to intensive care unit (ICU) for U nknown condition of interest (test code = 82745-1) Whether patient resides in a congregate care setting (test code = U nknown 02770-5) status (test code = 91781-2) Unknown Date and time of symptom onset (test code = 31392-1) Unknown SARS-CoV-2 (COVID-19) RNA [Presence] in Respiratory specimen by VINH with probe [id number] 11:16:10 Test Item Value Reference Range Interpretation Comments SARS-CoV-2 (COVID-19) RNA Not detected [Presence] in Respiratory specimen by VINH with probe detection (test code = 51353-3) Whether patient is employed in a Unknown healthcare setting (test code = 16691-6) Whether the patient has symptoms Unknown related to condition of interest (test code = 21009-2) Whether the patient was Unknown hospitalized for condition of interest (test code = 91971-0) Whether the patient was admitted Unknown to intensive care unit (ICU) for condition of interest (test code = 87623-9) Whether patient resides in a Unknown congregate care setting (test code = 67054-2) status (test code = Unknown 51126-2) Date and time of symptom onset Unknown (test code = 61075-1) SARS-CoV-2 (COVID-19) RNA [Presence] in Respiratory specimen by VINH with probe [id number] 19:07:21 Test Item Value Reference Range Interpretation Comments SARS-CoV-2 (COVID-19) RNA Not detected Not-Detected [Presence] in Respiratory specimen by VINH with probe detection (test code = 63650-6) Whether patient is employed in a healthcare setting (test code = 97059-6) Whether the patient has symptoms related to condition of interest (test code = 83670-7) Patient was hospitalized because of this condition (test code = 10179-4) Whether the patient was admitted to intensive care unit (ICU) for condition of interest (test code = 33885-8) Whether patient resides in a congregate care setting (test code = 29954-9)
--- NOTE | 2021-12-29 22:43 | RAD REPORT ---
EXAM DESCRIPTION: US - Lower Extremity Artery Uni Ltd - 12/29/2021 10:29 pm CLINICAL HISTORY: Leg pain COMPARISON: None FINDINGS: The right common femoral artery is patent. Proximal right superficial femoral artery is occluded. Monophasic waveforms are present within mid and distal right superficial femoral, popliteal and poste rior tibial arteries. 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
[2021-12-29 22:53] LABS: Absolute Lymphocytes (CBC) 2.4 K/uL (0.7-4.9); Hematocrit 26.4 % (36.0-45.0); Lymphocytes % 21.8 % (15.3-44.8); MCV 87.8 fL (80-100); MPV 7.6 fL (7.6-11.3)
[2021-12-29 23:27] LABS: Potassium 2.8 mmol/L (3.5-5.1)
[2021-12-30 00:07] LABS: SARS-CoV-2 Antigen Rapid Res Negative (Negative)
--- NOTE | 2021-12-30 00:22 | EDPHYS ---
Physician Documentation [facility] Name: Rian Merlos Age: 71 yrs Sex: Female : 1950 Arrival Date: 12/29/2021 Time: 21:32 Bed 5 Private MD: ED Physician Joey Villalta HPI: 12/30 00:22 This 71 yrs old Female presents to ER via Ambulatory with complaints of Foot Pain. ms3 00:22 The patient presents with pain, that is chronic. The complaints affect the right foot. ms3 Context: the patient can partially bear weight, the patient is able to ambulate. Onset: The symptoms/episode began/occurred 3 week(s) ago. Modifying factors: The symptoms are alleviated by nothing, the symptoms are aggravated by nothing. Associated signs and symptoms: Pertinent positives: Pertinent negatives: fever, numbness, rash, vomiting. Severity of symptoms: At their worst the symptoms were severe, in the emergency department the symptoms are unchanged. 71 yo female with pmh of DVT, HTN, MO presents for Right foot pain that has been ongoing for 3 weeks. Patient states she has had a bypass and multiple stents in her legs.. Historical: - Allergies: 12/29 21:54 Morphine; aa9 - Home Meds: 21:54 Plavix 75 mg Oral tab 1 tab once daily [Active]; amlodipine oral [Active]; aspirin 81 aa9 mg Oral TbEC 1 tab once daily [Active]; 23:46 gabapentin Oral [Active]; kd3 - PMHx: 21:54 DVT; Hyperlipidemia; Hypertension; Myocardial infarction; aa9 - PSHx: 21:54 stents leg, 1 heart stent; aa9 - Immunization history:: Client reports receiving the 2nd dose of the Covid vaccine, Flu vaccine is up to date. - Social history:: Smoking status: Patient/guardian denies using tobacco, Stopped _ months ago 8. ROS: 12/30 00:22 Constitutional: Negative for fever, and chills. Neck: Negative for injury, pain, and ms3 swelling, Cardiovascular: Negative for chest pain, and palpitations. Respiratory: Negative for shortness of breath, cough, wheezing, and pleuritic chest pain, Abdomen/GI: Negative for abdominal pain, nausea, vomiting, diarrhea, and constipation, MS/Extremity: Negative for injury and deformity, Skin: Negative for injury, rash, and discoloration. MS/extremity: Positive for pain, of the right foot. All other systems are negative. Exam: 00:22 Constitutional: This is a well developed, well nourished patient who is awake, alert, ms3 and in no acute distress. Head/Face: Normocephalic, atraumatic. Neck: Trachea midline, no cervical lymphadenopathy. Supple, full range of motion without nuchal rigidity, or vertebral point tenderness. No Meningismus. Chest/axilla: Normal chest wall appearance and motion. Nontender with no deformity. Cardiovascular: Regular rate and rhythm with a normal S1 and S2. No gallops, murmurs, or rubs. Normal PMI, no JVD. No pulse deficits. Respiratory: Lungs have equal breath sounds bilaterally, clear to auscultation and percussion. No rales, rhonchi or wheezes noted. No increased work of breathing, no retractions or nasal flaring. Abdomen/GI: Soft, non-tender, with normal bowel sounds. No distension or tympany. No guarding or rebound. No evidence of tenderness throughout. 00:22 Musculoskeletal/extremity: Extremities: noted in the right foot: erythema, pain, unable to palpated DP or PT. 00:22 Skin: Erythema, on the right foot. 00:22 Neuro: Exam negative for acute changes, motor deficits, sensory deficits, weakness. Vital Signs: 12/29 21:51 BP 90 / 72; Pulse 79; Resp 18 S; Temp 98.2(O); Pulse Ox 100% on R/A; Weight 47.63 kg; aa9 Height 5 ft. 3 in. (160.02 cm); Pain 10/10; 23:45 BP 99 / 86; Pulse 82; Resp 19; Pulse Ox 100% ; kd3 21:51 Body Mass Index 18.60 (47.63 kg, 160.02 cm) aa9 MDM: 21:49 Patient medically screened. ms3 12/30 00:22 Differential diagnosis: arthritis, cellulitis, Arterial occlusion. Data reviewed: vital ms3 signs, nurses notes, lab test result(s), radiologic studies. ED course: Discussed transfer with patient to [facility] where patient had bypass surgery and stents placed. Patient declines stating she has a grandchild to care for and needs to pack prior to being transferred. Discussed with patient she may return to the ED at any time for continued care. Patient understands/ agrees with plan. All questions answered. Return precautions given to include worsening symptoms, or any other concerns. . 12/29 21:57 Order name: CBC with Diff; Complete Time: 23:27 ms3 12/29 21:57 Order name: Basic Metabolic Panel; Complete Time: 23:27 ms3 12/29 21:57 Order name: Lower Extremity Artery Uni Ltd US; Complete Time: 22:48 ms3 12/29 23:32 Order name: SARS RAPID; Complete Time: 00:17 mw2 Administered Medications: 00:30 Drug: HYDROcodone-acetaminophen 5 mg-325 mg 1 tabs Route: PO; vc1 Disposition Summary: 12/30/21 00:22 Discharge Ordered Location: Home ms3 Condition: Stable ms3 Diagnosis - Superficial Femoral artery occlusion ms3 - Pain in right foot ms3 Followup: ms3 - With: Tristen Somers DO - When: 1 - 2 days - Reason: Recheck today's complaints Discharge Instructions: - Discharge Summary Sheet ms3 - Endovascular Therapy for Peripheral Arterial Disease ms3 Forms: - Medication Reconciliation Form ms3 - Thank You Letter ms3 - Antibiotic Education ms3 - Prescription Opioid Use ms3 Signatures: Dispatcher [employer] EDMS Joey Villalta DO DO ms3 Cheri Chaudhari, RN RN kd3 Milady Alonso RN RN vc1 Ludmila Whitaker, RADHA RN aa9 Corrections: (The following items were deleted from the chart) 05:13 05:11 This 71 yrs old Female presents to ER via Ambulatory with complaints of Foot ms3 Pain. ms3
--- NOTE | 2021-12-30 00:22 | ER ---
Nurse's Notes [facility] Name: Rian Merlos Age: 71 yrs Sex: Female : 1950 Arrival Date: 12/29/2021 Time: 21:32 Bed 5 Private MD: Diagnosis: Superficial Femoral artery occlusion ;Pain in right foot Presentation: 12/29 21:51 Chief complaint: Patient states: My right foot hurts. Coronavirus screen: Vaccine aa9 status: Patient reports receiving the 2nd dose of the covid vaccine. Ebola Screen: No symptoms or risks identified at this time. Initial Sepsis Screen: Does the patient meet any 2 criteria? Systolic BP < 90 mmHg. No. Patient's initial sepsis screen is negative. Does the patient have a suspected source of infection? Yes: Skin breakdown/wound. Risk Assessment: Do you want to hurt yourself or someone else? Patient reports no desire to harm self or others. Onset of symptoms was December 08, 2021. 21:51 Method Of Arrival: Ambulatory aa9 21:51 Acuity: GEOVANNA 3 aa9 Triage Assessment: 21:54 General: Appears uncomfortable, Behavior is cooperative, agitated. Pain: Complains of aa9 pain in right foot Pain radiates to lateral aspect of right calf and right ankle Pain currently is 10 out of 10 on a pain scale. Quality of pain is described as burning, Pain began 3 weeks ago. Historical: - Allergies: 21:54 Morphine; aa9 - Home Meds: 21:54 Plavix 75 mg Oral tab 1 tab once daily [Active]; amlodipine oral [Active]; aspirin 81 aa9 mg Oral TbEC 1 tab once daily [Active]; 23:46 gabapentin Oral [Active]; kd3 - PMHx: 21:54 DVT; Hyperlipidemia; Hypertension; Myocardial infarction; aa9 - PSHx: 21:54 stents leg, 1 heart stent; aa9 - Immunization history:: Client reports receiving the 2nd dose of the Covid vaccine, Flu vaccine is up to date. - Social history:: Smoking status: Patient/guardian denies using tobacco, Stopped _ months ago 8. Screenin:57 Abuse screen: Denies threats or abuse. Denies injuries from another. Nutritional aa9 screening: No deficits noted. Tuberculosis screening: No symptoms or risk factors identified. 23:46 Fall Risk IV access (20 points). kd3 Assessment: 21:56 General: Appears in no apparent distress. Behavior is calm, cooperative. Pain:. kd3 23:46 Reassessment: No changes from previously documented assessment. Patient and/or family kd3 updated on plan of care and expected duration. Pain level reassessed. Patient is alert, oriented x 3, equal unlabored respirations, skin warm/dry/pink. General: Appears in no apparent distress. Behavior is calm, cooperative. Vital Signs: 21:51 BP 90 / 72; Pulse 79; Resp 18 S; Temp 98.2(O); Pulse Ox 100% on R/A; Weight 47.63 kg; aa9 Height 5 ft. 3 in. (160.02 cm); Pain 10/10; 23:45 BP 99 / 86; Pulse 82; Resp 19; Pulse Ox 100% ; kd3 21:51 Body Mass Index 18.60 (47.63 kg, 160.02 cm) aa9 ED Course: 21:32 Patient arrived in ED. ja2 21:35 Joey Villalta DO is Attending Physician. ms3 21:43 Cheri Chaudhari, RADHA is Primary Nurse. kd3 21:54 Triage completed. aa9 21:56 Arm band placed on. aa9 22:31 Lower Extremity Artery Uni Ltd US In Process Unspecified. EDMS 23:47 Patient has correct armband on for positive identification. kd3 14 00:21 Tristen Somers DO is Referral Physician. ms3 00:54 No provider procedures requiring assistance completed. IV discontinued, intact, vc1 bleeding controlled, No redness/swelling at site. Pressure dressing applied. Administered Medications: 00:30 Drug: HYDROcodone-acetaminophen 5 mg-325 mg 1 tabs Route: PO; vc1 Medication: 12/29 23:47 VIS not applicable for this client. kd3 Outcome: 12/30 00:22 Discharge ordered by . ms3 00:54 Discharged to home ambulatory. vc1 00:54 Condition: good 00:54 Discharge instructions given to patient, Instructed on discharge instructions, follow up and referral plans. Demonstrated understanding of instructions, follow-up care. 00:59 Patient left the ED. vc1 Signatures: Dispatcher [employer] EDMS Joey Villalta DO DO ms3 Madalyn Ambrocio ja2 Cheri Chaudhari, RN RN kd3 Milady Alonso, RN RN vc1 Ludmila Whitaker, RN RN aa9
[2021-12-30] MEDS ORDERED: HYDROCODONE/APAP 5/325 MG TAB ONE (00:42)
[2021-12-30 01:19] VITALS: TEMP 98.2; O2SAT 100
[2021-12-30 01:22] VITALS: BP 99/86
== END 2021-12-30 00:59 | disposition home or self-care (01) ==
LOC: ER 21:27
DX: M79.671 Pain in right foot (principal); I70.92 Chronic total occlusion of artery of the extremities; I10 Essential (primary) hypertension; Z86.718 Personal history of other venous thrombosis and embolism; Z79.01 Long term (current) use of anticoagulants; Z79.82 Long term (current) use of aspirin; Z88.5 Allergy status to narcotic agent; Z95.5 Presence of coronary angioplasty implant and graft; Z20.822 Contact with and (suspected) exposure to COVID-19
CPT/HCPCS: 36415; 80048; 85025; 87811; 93926; 99283

== ENCOUNTER 2022-07-05 20:18 | Emergency (ER) | payer MEDICARE ==
--- OUTSIDE RECORDS SUMMARY | 2022-07-05 20:28 | XMS REPORT | Continuity of Care Document ---
:1950 Author Organization [facility] t Address [address] [place] [address] Care Team Providers Name Role Phone Tristen Somers DO Primary Care Physician [phone] Tristen Somers Attending Clinician Unavailable Stephania Flaherty MA Attending Clinician Unavailable Yonis INMAN, Brandon Lux Attending Clinician Nini INMAN, Camilo Attending Clinician Kimberly Reynolds DO Attending Clinician Shane Brown MD Attending Clinician Wyatt INMAN, Rigo Lux Attending Clinician Tejas INMAN, Arvin Steel Attending Clinician Saravanan INMAN, Karson Lozada Attending Clinician [phone] Osvaldo INMAN, Bala Packer Attending Clinician Marisol Cosby CRNA Attending Clinician Singh Cevallos MD Attending Clinician Chavez Durán DOmood Attending Clinician [phone] Irwin Syed MD Attending Clinician Ashley INMAN, Angeles Drake Attending Clinician Bridget Rosa DO Attending Clinician Ruel Jarvis Attending Clinician Tj BIRCH, Lola Florez Attending Clinician [phone] Nilton INMAN, Tanya Pickard Attending Clinician Salvador INMAN, Santiago Attending Clinician Jim INMAN, Merary Davison Attending Clinician [phone] Anthony Holland CRNA Attending Clinician [phone] Victoriano GARCIA, Yue Attending Clinician Unavailable VALE BUSTAMANTE Attending Clinician Unavailable MD ANGELES CACERES Attending Clinician Unavailable KIMBERLY REYNOLDS Admitting Clinician Unavailable MD CAMILO HU Admitting Clinician Unavailable ANGELES CACERES Admitting Clinician Unavailable MD ANGELES CACERES Admitting Clinician Unavailable Payers Payer Name Policy Type Policy Effective Date Expiration Date Sour ce Number [facility] [id number] 2021 (MEDICARE 00:00:00 REPLACEMENT HMO) [employer] MEDICARE C1 [id number] 2021 [facility] 00:00[facility] [facility] MEDICARE NOVITAS MB [id number] [facility] MEDICARE NOVITAS MB [id number] [facility] [employer] MEDICARE C1 [id number] 2021 [facility] 00:[facility]:[address] - [facility] MEDICARE NOVITAS MB [id number] [facility] [employer] MEDICARE C1 [id number] 2021 [facility] 00:00:00 - [facility] Problems Condition Condition Condition Status Onset Resolution Last Treating Co mments Source Name Details Category Date Date Treatment Clinician Date PAD PAD Disease Active [facility] (periphera (periphera 8-17 st l artery l artery 00:00: Hospit a disease) disease) 00 l PVD PVD Disease Active [facility] (periphera (periphera 4-15 st l vascular l vascular 00:00: Ho spita disease) disease) 00 l [id number] 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 - [facility] [id number] Leukocytos Problem Co mmon is, Spirit unspecifie - [facility] d type [facility] [id number] 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 - [facility] lower extremity [facility] [id number] Iron Problem Common deficiency Spirit anemia, - [facility] unspecifie d iron [facility] deficiency Medica l anemia Center type [id number] Renal Problem Commo n [id number] artery Spirit atheroscle - [facility] rosis, [facility] [id number] 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[facility] toe of Medical left foot Center [id number] Tobacco Problem Commo n use Spirit disorder - [facility] [id number] Bilateral Problem Com mon carotid Spirit artery - [facility] stenosis [facility] [id number] Mixed Problem Common hyperlipid Spirit emia - [facility] [id number] Panic Problem Common disorder Spirit [episodic - CHI paroxysmal St anxiety] [facility] [id number] Stage 3a Problem Comm on chronic Spirit kidney - CH[facility] disease [facility] [id number] Stented Problem Commo n coronary [facility] artery - [facility] [id number] Coronary Problem Comm on artery Spirit disease - [facility] involving [facility] coronary Medical artery of [facility] [place] heart with other form of angina pectoris [id number] Presence Problem Comm on of Spirit arterial - CH[facility] stent [facility] [id number] Generalize Problem Com mon d anxiety Spirit disorder - [facility] [id number] Essential Problem Comm on (primary) Spirit hypertensi - [facility] on [facility] [id number] Acquired Problem Comm on absence of Spirit other left - [facility] toe(s) [facility] Allergies, Adverse Reactions, Alerts Allergy Allergy Status Severity Reaction(s) Onset Inactive Treating Comm ents Source Name Type Date Date Clinician Morphine Propensi Active Itching Metho di ty to 14 st adverse 00:00: Hospita reaction 00 l s to drug morphine morphine Active Itching Commo n [facility] Family History Family Member Diagnosis Comments Start Date Stop Date Source [facility] mother [facility] with Legs Other [facility] Other [facility] Other Hypertension [facility] Other [facility]roke [facility] Social History Social Habit Start Date Stop Date Quantity Comments Source History of [facility] - Tobacco Use [facility] Alcohol intake 2022-01-09 2022-01-09 Ex-drinker [facility] 00:00:00 00:00:00 (finding) Hospital Tobacco use and 2022-01-02 2022-01-02 Smokeless tobacco Me [facility] exposure 00:00:00 00:00:00 non-user Hospital Tobacco Comment 2022-01-02 2022-01-02 On and Off [facility] 00:00:00 00:00:00 Hospital Sex Ass[birth year] At [birth year] [facility] 00:00:00 00:00:00 Hospital Smoking Status Start Date Stop Date Source Former Smoker 2022-06-25 00:00:00 2022-06-25 00:00:00 [facility] Current Smoker 2022-04-19 00:00:00 [facility] Never Smoker [facility] Medications Ordered Filled Start Stop Current Ordering Indication Dosage Frequency Signature Comments Components Source Medication Medication Date Date Medication? Clinician (SIG) Name Name clonazePAM clonazePAM 2021-05 No clonazePAM 0.5 MG 0.5 MG 2-06 0.5 MG 00:00: 00 clonazePAM clonazePAM 2021-05 No clonazePAM 0.5 MG 0.5 MG 2-06 0.5 MG 00:00: 00 clonazePAM clonazePAM No clonazePAM 0.5 MG 0.5 MG 9-27 0.5 MG 00:00: 00 clonazePAM clonazePAM No clonazePAM 0.5 MG 0.5 MG 9-27 0.5 MG 00:00: 00 rivaroxaban Yes 2.5mg Q.5D Take 1 Met hodi (XARELTO) 9-[address] 2.5 mg 00:00: (2.5 mg Hospita tablet 00 total) by l tablet mouth 2 (two) times a day. Resume taking this medication on 01/17/2022 pantoprazol 0 2021- No 40mg QD Take 1 Met hodi e 01-11 tablet (40 st (PROTONIX) 00:00: 04:59 mg total) H ospita 40 MG EC 00 :00 by mouth l tablet daily for 30 days. ascorbic 0 Yes 100mg QD Take 100 Meth jerica acid, 8-[address] vitamin C, 17:14: mouth Hospit a (VITAMIN C) 12 daily. l 100 MG tablet cholecalcif Yes 1000U QD Take 1,000 Methodi mao, 8-[address] vitamin D3, 17:14: mouth Hospi ta 25 mcg 12 daily. l (1,000 unit) capsule gabapentin Yes 300mg QD Take 300 Me thodi (NEURONTIN) 8-[address] 300 mg 17:14: mouth Hospita capsule 12 every l morning. 1 tablet qAM and 2 tablet qPM gabapentin Yes 600mg QD Take 600 Me [facility] (NEURONTIN) 8-[address] 300 mg 17:14: mouth Hospita capsule 12 every l evening. 1 tablet qAM and 2 tablet qPM amLODIPine Yes 10mg QD Take 10 mg M ethodi (NORVASC) 8-[address] 10 mg 17:14: daily. Hospita tablet 12 l metoprolol Yes 50mg QD Take 50 mg M ethodi succinate 8-[address] XL 17:14: daily. Hospita (TOPROL-XL) 12 l 50 mg 24 hr tablet clonAZEPAM 0 Yes .5mg Q24H Take 1 Metho di (KlonoPIN) 8-[address] 0.5 MG 17:14: (0.5 mg Hospita disintegrat 12 total) by l ing tablet mouth daily as needed for seizures. atorvastati Yes 40mg QD Take 1 Meth jerica n (LIPITOR) 8-25 tablet (40 st 40 mg 17:14: mg total) Hospita tablet 12 by mouth l daily. rivaroxaban 0 2021- No 2.5mg Q.5D Take 2.5 Method[facility] (XARELTO) 8-25 08-[address] 2.5 mg 11:53: 00:00 mouth 2 Hospita tablet 17 :00 (two) l tablet times a day. HYDROcodone 0 2021- No [id number] 1{tbl} Q6H Take 1 [facility] -acetaminop 8-25 08-[address] hen ([place]) 00:00: 04:59 mouth Hosp edgard 5-325 mg 00 :00 every 6 l per tablet (six) hours as needed for moderate pain for up to 5 days .acute pain. Max Daily Amount: 4 tablets clonazePAM clonazePAM 2021-0 No clonazePAM 0.5 MG 0.5 MG 7-26 0.5 MG 00:00: 00 clonazePAM clonazePAM 2021-0 No clonazePAM 0.5 MG 0.5 MG 7-26 0.5 MG 00:00: 00 clonazePAM clonazePAM 2021-0 No clonazePAM 0.5 MG 0.5 MG 7-26 0.5 MG 00:00: 00 clonazePAM clonazePAM 2021-0 No clonazePAM 0.5 MG 0.5 MG 7-26 0.5 MG 00:00: 00 clonazePAM clonazePAM 2021-0 No clonazePAM 0.5 MG 0.5 MG 7-26 0.5 MG 00:00: 00 clonazePAM clonazePAM 2-0 No clonazePAM 0.5 MG 0.5 MG 7-26 0.5 MG 00:00: 00 Promethazin Promethazin 2021-0 No 1{table QD Promethazi e HCl 12.5 e HCl 12.5 6-01 t_as_ne ne HCl MG MG 00:00: eded} 12.5 MG 00 Atorvastati Atorvastati 2021-0 No 1{table QD Atorvastat n Calcium n Calcium 6-01 t} in Calcium 40 MG 40 MG 00:00: 40 MG 00 clonazePAM clonazePAM 2021-0 No clonazePAM 0.5 MG 0.5 MG 6-01 0.5 MG 00:00: 00 traMADol traMADol 2021-0 No 1{table traMADol HCl 50 MG HCl 50 MG 5-06 t_as_ne HCl 50 MG 00:00: eded} 00 traMADol traMADol 2022-0 No 1{table traMADol HCl 50 MG HCl 50 MG 5-06 t_as_ne HCl 50 MG 00:00: eded} 00 traMADol traMADol 2-0 No 1{table traMADol HCl 50 MG HCl 50 MG 5-06 t_as_ne HCl 50 MG 00:00: eded} 00 traMADol traMADol 2022-0 No 1{table traMADol HCl 50 MG HCl 50 MG 5-06 t_as_ne HCl 50 MG 00:00: eded} 00 traMADol traMADol 2-0 No 1{table traMADol HCl 50 MG HCl 50 MG 5-06 t_as_ne HCl 50 MG 00:00: eded} 00 traMADol traMADol 2-0 No 1{table traMADol HCl 50 MG HCl 50 MG 5-06 t_as_ne HCl 50 MG 00:00: eded} 00 traMADol traMADol 2-0 No 1{table traMADol HCl 50 MG HCl 50 MG 5-06 t_as_ne HCl 50 MG 00:00: eded} 00 traMADol traMADol 2-0 No 1{table traMADol HCl 50 MG HCl 50 MG 5-06 t_as_ne HCl 50 MG 00:00: eded} 00 traMADol traMADol 2-0 No 1{table traMADol HCl 50 MG HCl 50 MG 5-06 t_as_ne HCl 50 MG 00:00: eded} 00 traMADol traMADol 2-0 No 1{table traMADol HCl 50 MG HCl 50 MG 5-06 t_as_ne HCl 50 MG 00:00: eded} 00 traMADol traMADol 2-0 No 1{table traMADol HCl 50 MG HCl 50 MG 5-06 t_as_ne HCl 50 MG 00:00: eded} 00 traMADol traMADol 2022-0 No 1{table traMADol HCl 50 MG HCl 50 MG 5-06 t_as_ne HCl 50 MG 00:00: eded} 00 clonazePAM clonazePAM 2-0 No clonazePAM 0.5 MG 0.5 MG 5-03 0.5 MG 00:00: 00 clonazePAM clonazePAM 2-0 No clonazePAM 0.5 MG 0.5 MG 5-03 0.5 MG 00:00: 00 traMADoL 2022-0 2022- No [id number] 50mg Q8H Take 1 Metho di (Ultram) 50 - 08-25 tablet (50 s t mg tablet 00:00: 00:00 mg total) Ho spita 00 :00 by mouth l every 8 (eight) hours as needed for severe pain for up to 5 days .acute pain. ferrous 2021- No 325mg Q.5D Take 1 Method i sulfate 325 09-12-[address] (65 FE) MG 00:00: 04:59 (325 mg Hos kayla tablet 00 :00 total) by l mouth 2 (two) times a day with meals for 30 days. doxycycline 2021- No 100mg Q.5D Take 1 Me thodi (VIBRAMYCIN 09-12 05-[address] ) 100 MG 00:00: 04:59 (100 mg Hospi ta capsule 00 :00 total) by l mouth 2 (two) times a day for 7 days. clonazePAM clonazePAM No 1{table QD clonazePAM 0.5 MG 0.5 MG 3-22 t_at_be 0.5 MG 00:00: dtime} 00 olmesartan- Yes 1{tbl} QD Take 1 Me [facility]odi hydrochloro 2-[address] thiazide 00:00: mouth Hospita (BENICAR 00 daily. l HCT) 40-25 mg per tablet clonazePAM clonazePAM No 1{table QD 0.5 MG 0.5 MG 2-02 t_at_be 00:00: dtime} 00 clonazePAM clonazePAM No 1{table QD clonazePAM 0.5 MG 0.5 MG 2-02 t_at_be 0.5 MG 00:00: dtime} 00 clonazePAM clonazePAM No 1{table QD 0.5 MG 0.5 MG 1-04 t_at_be 00:00: dtime} 00 FLUoxetine FLUoxetine 2020-05 No 1{table QD FLUoxetine HCl 20 MG HCl 20 MG 2-01 t} HCl 20 MG 00:00: 00 clonazePAM clonazePAM 2020-05 No 1{table QD clonazePAM 0.5 MG 0.5 MG 2-01 t_at_be 0.5 MG 00:00: dtime} 00 buPROPion buPROPion 2020-05 No 1{table QD buPROPion HCl ER (XL) HCl ER (XL) 0-05 t_in_th HCl ER 150 MG 150 MG 00:00: e_morni (XL) 150 00 ng} MG buPROPion buPROPion 2020-05 No 1{table QD buPROPion HCl ER (XL) HCl ER (XL) 0-05 t_in_th HCl ER 150 MG 150 MG 00:00: e_morni (XL) 150 00 ng} MG buPROPion buPROPion 2020-05 No 1{table QD buPROPion HCl ER (XL) HCl ER (XL) 0-05 t_in_th HCl ER 150 MG 150 MG 00:00: e_morni (XL) 150 00 ng} MG buPROPion buPROPion 2020-05 No 1{table QD buPROPion HCl ER (XL) HCl ER (XL) 0-05 t_in_th HCl ER 150 MG 150 MG 00:00: e_morni (XL) 150 00 ng} MG buPROPion buPROPion 2020-05 No 1{table QD HCl ER (XL) HCl ER (XL) 0-05 t_in_th 150 MG 150 MG 00:00: e_morni 00 ng} buPROPion buPROPion 2020-05 No 1{table QD HCl ER (XL) HCl ER (XL) 0-05 t_in_th 150 MG 150 MG 00:00: e_morni 00 ng} buPROPion buPROPion 2020-05 No 1{table QD buPROPion HCl ER (XL) HCl ER (XL) 0-05 t_in_th HCl ER 150 MG 150 MG 00:00: e_morni (XL) 150 00 ng} MG buPROPion buPROPion 2020-05 No 1{table QD buPROPion HCl ER (XL) HCl ER (XL) 0-05 t_in_th HCl ER 150 MG 150 MG 00:00: e_morni (XL) 150 00 ng} MG buPROPion buPROPion 2020-05 No 1{table QD buPROPion HCl ER (XL) HCl ER (XL) 0-05 t_in_th HCl ER 150 MG 150 MG 00:00: e_morni (XL) 150 00 ng} MG buPROPion buPROPion 2020-05 No 1{table QD buPROPion HCl ER (XL) HCl ER (XL) 0-05 t_in_th HCl ER 150 MG 150 MG 00:00: e_morni (XL) 150 00 ng} MG buPROPion buPROPion 2020-05 No 1{table QD buPROPion HCl ER (XL) HCl ER (XL) 0-05 t_in_th HCl ER 150 MG 150 MG 00:00: e_morni (XL) 150 00 ng} MG buPROPion buPROPion 2020-05 No 1{table QD buPROPion HCl ER (XL) HCl ER (XL) 0-05 t_in_th HCl ER 150 MG 150 MG 00:00: e_morni (XL) 150 00 ng} MG buPROPion buPROPion 2020-05 No 1{table QD buPROPion HCl ER (XL) HCl ER (XL) 0-05 t_in_th HCl ER 150 MG 150 MG 00:00: e_morni (XL) 150 00 ng} MG buPROPion buPROPion 2020-05 No 1{table QD buPROPion HCl ER (XL) HCl ER (XL) 0-05 t_in_th HCl ER 150 MG 150 MG 00:00: e_morni (XL) 150 00 ng} MG buPROPion buPROPion 2020-05 No 1{table QD buPROPion HCl ER (XL) HCl ER (XL) 0-05 t_in_th HCl ER 150 MG 150 MG 00:00: e_morni (XL) 150 00 ng} MG buPROPion buPROPion 2020-05 No 1{table QD buPROPion HCl ER (XL) HCl ER (XL) 0-05 t_in_th HCl ER 150 MG 150 MG 00:00: e_morni (XL) 150 00 ng} MG buPROPion buPROPion 2020-05 No 1{table QD buPROPion HCl ER (XL) HCl ER (XL) 0-05 t_in_th HCl ER 150 MG 150 MG 00:00: e_morni (XL) 150 00 ng} MG buPROPion buPROPion 2020-05 No 1{table QD buPROPion HCl ER (XL) HCl ER (XL) 0-05 t_in_th HCl ER 150 MG 150 MG 00:00: e_morni (XL) 150 00 ng} MG buPROPion buPROPion 2020-05 No 1{table QD buPROPion HCl ER (XL) HCl ER (XL) 0-05 t_in_th HCl ER 150 MG 150 MG 00:00: e_morni (XL) 150 00 ng} MG buPROPion buPROPion 2020-05 No 1{table QD buPROPion HCl ER (XL) HCl ER (XL) 0-05 t_in_th HCl ER 150 MG 150 MG 00:00: e_morni (XL) 150 00 ng} MG traMADoL 2021- No [id number] 50mg Q6H Take 1 Metho di (Ultram) 50 02-15- tablet (50 s t mg tablet 00:00: 00:00 mg total) Ho spita 00 :00 by mouth l every 6 (six) hours as needed for moderate pain for up to 5 days .acute pain. buPROPion Yes 100mg QD Take 100 Met hodi SR 9-[address] (WELLBUTRIN 00:00: mouth Hospi ta SR) 100 MG 00 every l 12 hr morning. tablet clopidogreL Yes 75mg QD Take 75 mg [facility] (PLAVIX) 75 01-[address] mg tablet 00:00: daily. Hospit a 00 l simvastatin 2021- No 20mg QD Take 20 mg [facility] (ZOCOR) 20 01-23 08-[address] mg tablet 00:00: 00:00 every Hospit a 00 :00 evening. l olmesartan- 2021- No 1{tbl} QD Take 1 M ethodi hydrochloro 01-04- tablet by st thiazide 00:00: 00:00 mouth Hospita (BENICAR 00 :00 daily. l HCT) 40-12.5 mg per tablet Clopidogrel Clopidogrel No 1{table QD Clopidogre Bisulfate Bisulfate t} l 75 MG 75 MG Bisulfate 75 MG Vitamin C Vitamin C No Vitamin C Atorvastati Atorvastati No 1{table QD Atorvastat n Calcium n Calcium t} in Calcium 40 MG 40 MG 40 MG Atorvastati Atorvastati No Atorvastat n Calcium n Calcium in Calcium 40 MG 40 MG 40 MG amLODIPine amLODIPine No 1{table QD amLODIPine Besylate 10 Besylate 10 t} Besylate MG MG 10 MG traMADol traMADol No 1{table QD traMADol HCl 50 MG HCl 50 MG t_as_ne HCl 50 MG eded} Vitamin D Vitamin D No Vitamin D Xarelto 2.5 Xarelto 2.5 No 1{table BID Xarelto MG MG t_with_ 2.5 MG food} Probiotic Probiotic No Probiotic Xarelto 2.5 Xarelto 2.5 No 1{table QD Xarelto MG MG t_with_ 2.5 MG food} doxycycline doxycycline No doxycyclin e Ferrous Ferrous No 1{table BID Ferrous Sulfate 325 Sulfate 325 t} Sulfate (65 Fe) MG (65 Fe) MG 325 (65 Fe) MG Olmesartan Olmesartan No Olmesartan Medoxomil-H Medoxomil-H Medoxomil- CTZ 40-25 CTZ 40-25 HCTZ 40-25 MG MG MG Olmesartan Olmesartan No 1{table QD Olmesartan Medoxomil-H Medoxomil-H t} Medoxomil- CTZ 40-25 CTZ 40-25 HCTZ 40-25 MG MG MG amLODIPine amLODIPine No amLODIPine Besylate 10 Besylate 10 Besylate MG MG 10 MG Promethazin Promethazin No 1{table QD Promethazi e HCl 12.5 e HCl 12.5 t_as_ne ne HCl MG MG eded} 12.5 MG Gabapentin Gabapentin No 1{capsu TID Gabapentin 300 MG 300 MG le} 300 MG Metoprolol Metoprolol No 1{table QD Metoprolol Succinate Succinate t} Succinate ER 50 MG ER 50 MG ER 50 MG Clopidogrel Clopidogrel No 1{table QD Clopidogre Bisulfate Bisulfate t} l 75 MG 75 MG Bisulfate 75 MG Atorvastati Atorvastati No Atorvastat n Calcium n Calcium in Calcium 40 MG 40 MG 40 MG Vitamin C Vitamin C No Vitamin C amLODIPine amLODIPine No amLODIPine Besylate 10 Besylate 10 Besylate MG MG 10 MG Ferrous Ferrous No 1{table BID Ferrous Sulfate 325 Sulfate 325 t} Sulfate (65 Fe) MG (65 Fe) MG 325 (65 Fe) MG Olmesartan Olmesartan No Olmesartan Medoxomil-H Medoxomil-H Medoxomil- CTZ 40-25 CTZ 40-25 HCTZ 40-25 MG MG MG Xarelto 2.5 Xarelto 2.5 No 1{table BID Xarelto MG MG t_with_ 2.5 MG food} Probiotic Probiotic No Probiotic Vitamin D Vitamin D No Vitamin D Olmesartan Olmesartan No 1{table QD Olmesartan Medoxomil-H Medoxomil-H t} Medoxomil- CTZ 40-25 CTZ 40-25 HCTZ 40-25 MG MG MG Vitamin D Vitamin D No Vitamin D Vitamin C Vitamin C No Vitamin C Atorvastati Atorvastati No 1{table QD Atorvastat n Calcium n Calcium t} in Calcium 40 MG 40 MG 40 MG Clopidogrel Clopidogrel No 1{table QD Clopidogre Bisulfate Bisulfate t} l 75 MG 75 MG Bisulfate 75 MG Gabapentin Gabapentin No 1{capsu TID Gabapentin 300 MG 300 MG le} 300 MG Promethazin Promethazin No 1{table QD Promethazi e HCl 12.5 e HCl 12.5 t_as_ne ne HCl MG MG eded} 12.5 MG Metoprolol Metoprolol No 1{table QD Metoprolol Succinate Succinate t} Succinate ER 50 MG ER 50 MG ER 50 MG Atorvastati Atorvastati No Atorvastat n Calcium n Calcium in Calcium 40 MG 40 MG 40 MG traMADol traMADol No 1{table QD traMADol HCl 50 MG HCl 50 MG t_as_ne HCl 50 MG eded} amLODIPine amLODIPine No 1{table QD amLODIPine Besylate 10 Besylate 10 t} Besylate MG MG 10 MG doxycycline doxycycline No doxycyclin e Gabapentin Gabapentin No 1{capsu TID Gabapentin 300 MG 300 MG le} 300 MG amLODIPine amLODIPine No amLODIPine Besylate 10 Besylate 10 Besylate MG MG 10 MG Ferrous Ferrous No 1{table BID Ferrous Sulfate 325 Sulfate 325 t} Sulfate (65 Fe) MG (65 Fe) MG 325 (65 Fe) MG Promethazin Promethazin No 1{table QD Promethazi e HCl 12.5 e HCl 12.5 t_as_ne ne HCl MG MG eded} 12.5 MG Olmesartan Olmesartan No Olmesartan Medoxomil-H Medoxomil-H Medoxomil- CTZ 40-25 CTZ 40-25 HCTZ 40-25 MG MG MG Promethazin Promethazin No 1{table QD Promethazi e HCl 12.5 e HCl 12.5 t_as_ne ne HCl MG MG eded} 12.5 MG Probiotic Probiotic No Probiotic Olmesartan Olmesartan No 1{table QD Olmesartan Medoxomil-H Medoxomil-H t} Medoxomil- CTZ 40-25 CTZ 40-25 HCTZ 40-25 MG MG MG Vitamin D Vitamin D No Vitamin D Vitamin C Vitamin C No Vitamin C Atorvastati Atorvastati No 1{table QD Atorvastat n Calcium n Calcium t} in Calcium 40 MG 40 MG 40 MG Ferrous Ferrous No 1{table BID Ferrous Sulfate 325 Sulfate 325 t} Sulfate (65 Fe) MG (65 Fe) MG 325 (65 Fe) MG Clopidogrel Clopidogrel No 1{table QD Clopidogre Bisulfate Bisulfate t} l 75 MG 75 MG Bisulfate 75 MG Gabapentin Gabapentin No 1{capsu TID Gabapentin 300 MG 300 MG le} 300 MG Xarelto 2.5 Xarelto 2.5 No Xarelto MG MG 2.5 MG Metoprolol Metoprolol No 1{table QD Metoprolol Succinate Succinate t} Succinate ER 50 MG ER 50 MG ER 50 MG Atorvastati Atorvastati No Atorvastat n Calcium n Calcium in Calcium 40 MG 40 MG 40 MG traMADol traMADol No 1{table QD traMADol HCl 50 MG HCl 50 MG t_as_ne HCl 50 MG eded} amLODIPine amLODIPine No 1{table QD amLODIPine Besylate 10 Besylate 10 t} Besylate MG MG 10 MG doxycycline doxycycline No doxycyclin e amLODIPine amLODIPine No amLODIPine Besylate 10 Besylate 10 Besylate MG MG 10 MG Olmesartan Olmesartan No Olmesartan Medoxomil-H Medoxomil-H Medoxomil- CTZ 40-25 CTZ 40-25 HCTZ 40-25 MG MG MG Clopidogrel Clopidogrel No 1{table QD Clopidogre Bisulfate Bisulfate t} l 75 MG 75 MG Bisulfate 75 MG Metoprolol Metoprolol No 1{table QD Metoprolol Succinate Succinate t} Succinate ER 50 MG ER 50 MG ER 50 MG amLODIPine amLODIPine No 1{table QD amLODIPine Besylate 10 Besylate 10 t} Besylate MG MG 10 MG clonazePAM clonazePAM No clonazePAM 0.5 MG 0.5 MG 0.5 MG Clopidogrel Clopidogrel No 1{table QD Clopidogre Bisulfate Bisulfate t} l 75 MG 75 MG Bisulfate 75 MG Xarelto 2.5 Xarelto 2.5 No 1{table BID Xarelto MG MG t_with_ 2.5 MG food} Atorvastati Atorvastati No 1{table QD Atorvastat n Calcium n Calcium t} in Calcium 40 MG 40 MG 40 MG Promethazin Promethazin No 1{table QD Promethazi e HCl 12.5 e HCl 12.5 t_as_ne ne HCl MG MG eded} 12.5 MG Olmesartan Olmesartan No 1{table QD Olmesartan Medoxomil-H Medoxomil-H t} Medoxomil- CTZ 40-25 CTZ 40-25 HCTZ 40-25 MG MG MG Metoprolol Metoprolol No 1{table QD Metoprolol Succinate Succinate t} Succinate ER 50 MG ER 50 MG ER 50 MG amLODIPine amLODIPine No 1{table QD amLODIPine Besylate 10 Besylate 10 t} Besylate MG MG 10 MG clonazePAM clonazePAM No clonazePAM 0.5 MG 0.5 MG 0.5 MG Clopidogrel Clopidogrel No 1{table QD Clopidogre Bisulfate Bisulfate t} l 75 MG 75 MG Bisulfate 75 MG Xarelto 2.5 Xarelto 2.5 No 1{table BID Xarelto MG MG t_with_ 2.5 MG food} Atorvastati Atorvastati No 1{table QD Atorvastat n Calcium n Calcium t} in Calcium 40 MG 40 MG 40 MG Promethazin Promethazin No 1{table QD Promethazi e HCl 12.5 e HCl 12.5 t_as_ne ne HCl MG MG eded} 12.5 MG Olmesartan Olmesartan No 1{table QD Olmesartan Medoxomil-H Medoxomil-H t} Medoxomil- CTZ 40-25 CTZ 40-25 HCTZ 40-25 MG MG MG Vitamin C Vitamin C No Vitamin C Atorvastati Atorvastati No 1{table QD Atorvastat n Calcium n Calcium t} in Calcium 40 MG 40 MG 40 MG Atorvastati Atorvastati No Atorvastat n Calcium n Calcium in Calcium 40 MG 40 MG 40 MG amLODIPine amLODIPine No 1{table QD amLODIPine Besylate 10 Besylate 10 t} Besylate MG MG 10 MG traMADol traMADol No 1{table QD traMADol HCl 50 MG HCl 50 MG t_as_ne HCl 50 MG eded} Vitamin D Vitamin D No Vitamin D Xarelto 2.5 Xarelto 2.5 No 1{table BID Xarelto MG MG t_with_ 2.5 MG food} Probiotic Probiotic No Probiotic doxycycline doxycycline No doxycyclin e Ferrous Ferrous No 1{table BID Ferrous Sulfate 325 Sulfate 325 t} Sulfate (65 Fe) MG (65 Fe) MG 325 (65 Fe) MG Olmesartan Olmesartan No Olmesartan Medoxomil-H Medoxomil-H Medoxomil- CTZ 40-25 CTZ 40-25 HCTZ 40-25 MG MG MG Olmesartan Olmesartan No 1{table QD Olmesartan Medoxomil-H Medoxomil-H t} Medoxomil- CTZ 40-25 CTZ 40-25 HCTZ 40-25 MG MG MG amLODIPine amLODIPine No amLODIPine Besylate 10 Besylate 10 Besylate MG MG 10 MG Promethazin Promethazin No 1{table QD Promethazi e HCl 12.5 e HCl 12.5 t_as_ne ne HCl MG MG eded} 12.5 MG Gabapentin Gabapentin No 1{capsu TID Gabapentin 300 MG 300 MG le} 300 MG Metoprolol Metoprolol No 1{table QD Metoprolol Succinate Succinate t} Succinate ER 50 MG ER 50 MG ER 50 MG Clopidogrel Clopidogrel No 1{table QD Clopidogre Bisulfate Bisulfate t} l 75 MG 75 MG Bisulfate 75 MG Metoprolol Metoprolol No 1{table QD Metoprolol Succinate Succinate t} Succinate ER 50 MG ER 50 MG ER 50 MG clonazePAM clonazePAM No 1{table QD clonazePAM 0.5 MG 0.5 MG t_at_be 0.5 MG dtime} amLODIPine amLODIPine No 1{table QD amLODIPine Besylate 10 Besylate 10 t} Besylate MG MG 10 MG traMADol traMADol No 1{table QD traMADol HCl 50 MG HCl 50 MG t_as_ne HCl 50 MG eded} clonazePAM clonazePAM No clonazePAM Simvastatin Simvastatin No 1{table QD Simvastati 20 MG 20 MG t_in_th n 20 MG e_eveni ng} Clopidogrel Clopidogrel No 1{table QD Clopidogre Bisulfate Bisulfate t} l 75 MG 75 MG Bisulfate 75 MG Xarelto 2.5 Xarelto 2.5 No 1{table BID Xarelto MG MG t_with_ 2.5 MG food} Gabapentin Gabapentin No 1{capsu TID Gabapentin 300 MG 300 MG le} 300 MG Vitamin D Vitamin D No Vitamin D Aspirin 81 Aspirin 81 No 1{table QD Aspirin 81 81 MG 81 MG t} 81 MG Olmesartan Olmesartan No 1{table QD Olmesartan Medoxomil-H Medoxomil-H t} Medoxomil- CTZ 40-12.5 CTZ 40-12.5 HCTZ MG MG 40-12.5 MG Vitamin C Vitamin C No Vitamin C Metoprolol Metoprolol No 1{table QD Metoprolol Succinate Succinate t} Succinate ER 50 MG ER 50 MG ER 50 MG clonazePAM clonazePAM No 1{table QD clonazePAM 0.5 MG 0.5 MG t_at_be 0.5 MG dtime} amLODIPine amLODIPine No 1{table QD amLODIPine Besylate 10 Besylate 10 t} Besylate MG MG 10 MG traMADol traMADol No 1{table QD traMADol HCl 50 MG HCl 50 MG t_as_ne HCl 50 MG eded} clonazePAM clonazePAM No clonazePAM Simvastatin Simvastatin No 1{table QD Simvastati 20 MG 20 MG t_in_th n 20 MG e_eveni ng} Clopidogrel Clopidogrel No 1{table QD Clopidogre Bisulfate Bisulfate t} l 75 MG 75 MG Bisulfate 75 MG Xarelto 2.5 Xarelto 2.5 No 1{table BID Xarelto MG MG t_with_ 2.5 MG food} Gabapentin Gabapentin No 1{capsu TID Gabapentin 300 MG 300 MG le} 300 MG Vitamin D Vitamin D No Vitamin D Aspirin 81 Aspirin 81 No 1{table QD Aspirin 81 81 MG 81 MG t} 81 MG Olmesartan Olmesartan No 1{table QD Olmesartan Medoxomil-H Medoxomil-H t} Medoxomil- CTZ 40-12.5 CTZ 40-12.5 HCTZ MG MG 40-12.5 MG Vitamin C Vitamin C No Vitamin C Metoprolol Metoprolol No 1{table QD Metoprolol Succinate Succinate t} Succinate ER 50 MG ER 50 MG ER 50 MG Simvastatin Simvastatin No 1{table QD Simvastati 20 MG 20 MG t_in_th n 20 MG e_eveni ng} amLODIPine amLODIPine No 1{table QD amLODIPine Besylate 10 Besylate 10 t} Besylate MG MG 10 MG Gabapentin Gabapentin No 1{capsu TID Gabapentin 300 MG 300 MG le} 300 MG Aspirin 81 Aspirin 81 No 1{table QD Aspirin 81 81 MG 81 MG t} 81 MG Olmesartan Olmesartan No 1{table QD Olmesartan Medoxomil-H Medoxomil-H t} Medoxomil- CTZ 40-12.5 CTZ 40-12.5 HCTZ MG MG 40-12.5 MG Vitamin D Vitamin D No Vitamin D Xarelto 2.5 Xarelto 2.5 No 1{table BID Xarelto MG MG t_with_ 2.5 MG food} clonazePAM clonazePAM No clonazePAM Vitamin C Vitamin C No Vitamin C traMADol traMADol No 1{table QD traMADol HCl 50 MG HCl 50 MG t_as_ne HCl 50 MG eded} Clopidogrel Clopidogrel No 1{table QD Clopidogre Bisulfate Bisulfate t} l 75 MG 75 MG Bisulfate 75 MG clonazePAM clonazePAM No 1{table QD clonazePAM 0.5 MG 0.5 MG t_at_be 0.5 MG dtime} Vitamin D Vitamin D No Olmesartan Olmesartan No 1{table QD Medoxomil-H Medoxomil-H t} CTZ 40-12.5 CTZ 40-12.5 MG MG Vitamin C Vitamin C No Gabapentin Gabapentin No 1{capsu TID 300 MG 300 MG le} Clopidogrel Clopidogrel No 1{table QD Bisulfate Bisulfate t} 75 MG 75 MG Aspirin 81 Aspirin 81 No 1{table QD 81 MG 81 MG t} clonazePAM clonazePAM No 1{table QD 0.5 MG 0.5 MG t_at_be dtime} FLUoxetine FLUoxetine No 1{table QD HCl 20 MG HCl 20 MG t} clonazePAM clonazePAM No traMADol traMADol No 1{table QD HCl 50 MG HCl 50 MG t_as_ne eded} Simvastatin Simvastatin No 20 MG 20 MG amLODIPine amLODIPine No 1{table QD Besylate 10 Besylate 10 t} MG MG Simvastatin Simvastatin No 1{table QD 20 MG 20 MG t_in_th e_eveni ng} Xarelto 2.5 Xarelto 2.5 No 1{table BID MG MG t_with_ food} Olmesartan Olmesartan No Medoxomil-H Medoxomil-H CTZ 40-12.5 CTZ 40-12.5 MG MG Metoprolol Metoprolol No 1{table QD Succinate Succinate t} ER 50 MG ER 50 MG Xarelto 2.5 Xarelto 2.5 No 1{table BID MG MG t_with_ food} Simvastatin Simvastatin No 1{table QD 20 MG 20 MG t_in_th e_eveni ng} Simvastatin Simvastatin No 20 MG 20 MG Olmesartan Olmesartan No Medoxomil-H Medoxomil-H CTZ 40-12.5 CTZ 40-12.5 MG MG clonazePAM clonazePAM No Aspirin 81 Aspirin 81 No 1{table QD 81 MG 81 MG t} traMADol traMADol No 1{table QD HCl 50 MG HCl 50 MG t_as_ne eded} Vitamin D Vitamin D No Vitamin C Vitamin C No Olmesartan Olmesartan No 1{table QD Medoxomil-H Medoxomil-H t} CTZ 40-25 CTZ 40-25 MG MG Metoprolol Metoprolol No 1{table QD Succinate Succinate t} ER 50 MG ER 50 MG amLODIPine amLODIPine No 1{table QD Besylate 10 Besylate 10 t} MG MG Gabapentin Gabapentin No 1{capsu TID 300 MG 300 MG le} clonazePAM clonazePAM No 1{table QD 0.5 MG 0.5 MG t_at_be dtime} Clopidogrel Clopidogrel No 1{table QD Bisulfate Bisulfate t} 75 MG 75 MG Xarelto 2.5 Xarelto 2.5 No 1{table BID Xarelto MG MG t_with_ 2.5 MG food} Simvastatin Simvastatin No 1{table QD Simvastati 20 MG 20 MG t_in_th n 20 MG e_eveni ng} Simvastatin Simvastatin No Simvastati 20 MG 20 MG n 20 MG Olmesartan Olmesartan No Olmesartan Medoxomil-H Medoxomil-H Medoxomil- CTZ 40-12.5 CTZ 40-12.5 HCTZ MG MG 40-12.5 MG clonazePAM clonazePAM No clonazePAM Aspirin 81 Aspirin 81 No 1{table QD Aspirin 81 81 MG 81 MG t} 81 MG traMADol traMADol No 1{table QD traMADol HCl 50 MG HCl 50 MG t_as_ne HCl 50 MG eded} Vitamin D Vitamin D No Vitamin D Vitamin C Vitamin C No Vitamin C Olmesartan Olmesartan No 1{table QD Olmesartan Medoxomil-H Medoxomil-H t} Medoxomil- CTZ 40-25 CTZ 40-25 HCTZ 40-25 MG MG MG Metoprolol Metoprolol No 1{table QD Metoprolol Succinate Succinate t} Succinate ER 50 MG ER 50 MG ER 50 MG amLODIPine amLODIPine No 1{table QD amLODIPine Besylate 10 Besylate 10 t} Besylate MG MG 10 MG Gabapentin Gabapentin No 1{capsu TID Gabapentin 300 MG 300 MG le} 300 MG clonazePAM clonazePAM No 1{table QD clonazePAM 0.5 MG 0.5 MG t_at_be 0.5 MG dtime} Clopidogrel Clopidogrel No 1{table QD Clopidogre Bisulfate Bisulfate t} l 75 MG 75 MG Bisulfate 75 MG Vitamin D Vitamin D No Vitamin D Vitamin C Vitamin C No Vitamin C Xarelto 2.5 Xarelto 2.5 No 1{table BID Xarelto MG MG t_with_ 2.5 MG food} Olmesartan Olmesartan No Olmesartan Medoxomil-H Medoxomil-H Medoxomil- CTZ 40-12.5 CTZ 40-12.5 HCTZ MG MG 40-12.5 MG Simvastatin Simvastatin No 1{table QD Simvastati 20 MG 20 MG t_in_th n 20 MG e_eveni ng} Clopidogrel Clopidogrel No 1{table QD Clopidogre Bisulfate Bisulfate t} l 75 MG 75 MG Bisulfate 75 MG traMADol traMADol No 1{table QD traMADol HCl 50 MG HCl 50 MG t_as_ne HCl 50 MG eded} Olmesartan Olmesartan No 1{table QD Olmesartan Medoxomil-H Medoxomil-H t} Medoxomil- CTZ 40-25 CTZ 40-25 HCTZ 40-25 MG MG MG Aspirin 81 Aspirin 81 No 1{table QD Aspirin 81 81 MG 81 MG t} 81 MG Simvastatin Simvastatin No Simvastati 20 MG 20 MG n 20 MG Gabapentin Gabapentin No 1{capsu TID Gabapentin 300 MG 300 MG le} 300 MG clonazePAM clonazePAM No 1{table QD clonazePAM 0.5 MG 0.5 MG t_at_be 0.5 MG dtime} amLODIPine amLODIPine No 1{table QD amLODIPine Besylate 10 Besylate 10 t} Besylate MG MG 10 MG Metoprolol Metoprolol No 1{table QD Metoprolol Succinate Succinate t} Succinate ER 50 MG ER 50 MG ER 50 MG clonazePAM clonazePAM No clonazePAM Olmesartan Olmesartan No 1{table QD Olmesartan Medoxomil-H Medoxomil-H t} Medoxomil- CTZ 40-25 CTZ 40-25 HCTZ 40-25 MG MG MG Xarelto 2.5 Xarelto 2.5 No 1{table BID Xarelto MG MG t_with_ 2.5 MG food} clonazePAM clonazePAM No 1{table QD clonazePAM 0.5 MG 0.5 MG t_at_be 0.5 MG dtime} Simvastatin Simvastatin No 1{table QD Simvastati 20 MG 20 MG t_in_th n 20 MG e_eveni ng} Clopidogrel Clopidogrel No 1{table QD Clopidogre Bisulfate Bisulfate t} l 75 MG 75 MG Bisulfate 75 MG amLODIPine amLODIPine No 1{table QD amLODIPine Besylate 10 Besylate 10 t} Besylate MG MG 10 MG doxycycline doxycycline No doxycyclin e Olmesartan Olmesartan No 1{table QD Olmesartan Medoxomil-H Medoxomil-H t} Medoxomil- CTZ 40-25 CTZ 40-25 HCTZ 40-25 MG MG MG Simvastatin Simvastatin No 1{table QD Simvastati 20 MG 20 MG t_in_th n 20 MG e_eveni ng} Clopidogrel Clopidogrel No 1{table QD Clopidogre Bisulfate Bisulfate t} l 75 MG 75 MG Bisulfate 75 MG Ferrous Ferrous No 1{table BID Ferrous Sulfate 325 Sulfate 325 t} Sulfate (65 Fe) MG (65 Fe) MG 325 (65 Fe) MG traMADol traMADol No 1{table QD traMADol HCl 50 MG HCl 50 MG t_as_ne HCl 50 MG eded} Xarelto 2.5 Xarelto 2.5 No 1{table BID Xarelto MG MG t_with_ 2.5 MG food} Gabapentin Gabapentin No 1{capsu TID Gabapentin 300 MG 300 MG le} 300 MG Vitamin C Vitamin C No Vitamin C Metoprolol Metoprolol No 1{table QD Metoprolol Succinate Succinate t} Succinate ER 50 MG ER 50 MG ER 50 MG Vitamin D Vitamin D No Vitamin D amLODIPine amLODIPine No 1{table QD amLODIPine Besylate 10 Besylate 10 t} Besylate MG MG 10 MG doxycycline doxycycline No doxycyclin e Olmesartan Olmesartan No 1{table QD Olmesartan Medoxomil-H Medoxomil-H t} Medoxomil- CTZ 40-25 CTZ 40-25 HCTZ 40-25 MG MG MG Simvastatin Simvastatin No 1{table QD Simvastati 20 MG 20 MG t_in_th n 20 MG e_eveni ng} Clopidogrel Clopidogrel No 1{table QD Clopidogre Bisulfate Bisulfate t} l 75 MG 75 MG Bisulfate 75 MG Ferrous Ferrous No 1{table BID Ferrous Sulfate 325 Sulfate 325 t} Sulfate (65 Fe) MG (65 Fe) MG 325 (65 Fe) MG traMADol traMADol No 1{table QD traMADol HCl 50 MG HCl 50 MG t_as_ne HCl 50 MG eded} Xarelto 2.5 Xarelto 2.5 No 1{table BID Xarelto MG MG t_with_ 2.5 MG food} Gabapentin Gabapentin No 1{capsu TID Gabapentin 300 MG 300 MG le} 300 MG Vitamin C Vitamin C No Vitamin C Metoprolol Metoprolol No 1{table QD Metoprolol Succinate Succinate t} Succinate ER 50 MG ER 50 MG ER 50 MG Vitamin D Vitamin D No Vitamin D amLODIPine amLODIPine No 1{table QD amLODIPine Besylate 10 Besylate 10 t} Besylate MG MG 10 MG Vitamin C Vitamin C No Vitamin C Xarelto 2.5 Xarelto 2.5 No 1{table BID Xarelto MG MG t_with_ 2.5 MG food} Clopidogrel Clopidogrel No 1{table QD Clopidogre Bisulfate Bisulfate t} l 75 MG 75 MG Bisulfate 75 MG Ferrous Ferrous No 1{table BID Ferrous Sulfate 325 Sulfate 325 t} Sulfate (65 Fe) MG (65 Fe) MG 325 (65 Fe) MG doxycycline doxycycline No doxycyclin e Gabapentin Gabapentin No 1{capsu TID Gabapentin 300 MG 300 MG le} 300 MG Metoprolol Metoprolol No 1{table QD Metoprolol Succinate Succinate t} Succinate ER 50 MG ER 50 MG ER 50 MG Olmesartan Olmesartan No 1{table QD Olmesartan Medoxomil-H Medoxomil-H t} Medoxomil- CTZ 40-25 CTZ 40-25 HCTZ 40-25 MG MG MG Vitamin D Vitamin D No Vitamin D amLODIPine amLODIPine No 1{table QD amLODIPine Besylate 10 Besylate 10 t} Besylate MG MG 10 MG traMADol traMADol No 1{table QD traMADol HCl 50 MG HCl 50 MG t_as_ne HCl 50 MG eded} traMADol traMADol No 1{table QD traMADol HCl 50 MG HCl 50 MG t_as_ne HCl 50 MG eded} doxycycline doxycycline No doxycyclin e Metoprolol Metoprolol No 1{table QD Metoprolol Succinate Succinate t} Succinate ER 50 MG ER 50 MG ER 50 MG amLODIPine amLODIPine No 1{table QD amLODIPine Besylate 10 Besylate 10 t} Besylate MG MG 10 MG Vitamin C Vitamin C No Vitamin C Vitamin D Vitamin D No Vitamin D Olmesartan Olmesartan No 1{table QD Olmesartan Medoxomil-H Medoxomil-H t} Medoxomil- CTZ 40-25 CTZ 40-25 HCTZ 40-25 MG MG MG Gabapentin Gabapentin No 1{capsu TID Gabapentin 300 MG 300 MG le} 300 MG Atorvastati Atorvastati No 1{table QD Atorvastat n Calcium n Calcium t} in Calcium 40 MG 40 MG 40 MG Ferrous Ferrous No 1{table BID Ferrous Sulfate 325 Sulfate 325 t} Sulfate (65 Fe) MG (65 Fe) MG 325 (65 Fe) MG Xarelto 2.5 Xarelto 2.5 No 1{table QD Xarelto MG MG t_with_ 2.5 MG food} Promethazin Promethazin No 1{table QD Promethazi e HCl 12.5 e HCl 12.5 t_as_ne ne HCl MG MG eded} 12.5 MG Clopidogrel Clopidogrel No 1{table QD Clopidogre Bisulfate Bisulfate t} l 75 MG 75 MG Bisulfate 75 MG traMADol traMADol No 1{table QD traMADol HCl 50 MG HCl 50 MG t_as_ne HCl 50 MG eded} doxycycline doxycycline No doxycyclin e Metoprolol Metoprolol No 1{table QD Metoprolol Succinate Succinate t} Succinate ER 50 MG ER 50 MG ER 50 MG amLODIPine amLODIPine No 1{table QD amLODIPine Besylate 10 Besylate 10 t} Besylate MG MG 10 MG Vitamin C Vitamin C No Vitamin C Vitamin D Vitamin D No Vitamin D Olmesartan Olmesartan No Olmesartan Medoxomil-H Medoxomil-H Medoxomil- CTZ 40-25 CTZ 40-25 HCTZ 40-25 MG MG MG Gabapentin Gabapentin No 1{capsu TID Gabapentin 300 MG 300 MG le} 300 MG Atorvastati Atorvastati No 1{table QD Atorvastat n Calcium n Calcium t} in Calcium 40 MG 40 MG 40 MG Ferrous Ferrous No 1{table BID Ferrous Sulfate 325 Sulfate 325 t} Sulfate (65 Fe) MG (65 Fe) MG 325 (65 Fe) MG Xarelto 2.5 Xarelto 2.5 No 1{table QD Xarelto MG MG t_with_ 2.5 MG food} Promethazin Promethazin No 1{table QD Promethazi e HCl 12.5 e HCl 12.5 t_as_ne ne HCl MG MG eded} 12.5 MG Clopidogrel Clopidogrel No 1{table QD Clopidogre Bisulfate Bisulfate t} l 75 MG 75 MG Bisulfate 75 MG traMADol traMADol No 1{table QD traMADol HCl 50 MG HCl 50 MG t_as_ne HCl 50 MG eded} doxycycline doxycycline No doxycyclin e Metoprolol Metoprolol No 1{table QD Metoprolol Succinate Succinate t} Succinate ER 50 MG ER 50 MG ER 50 MG Xarelto 2.5 Xarelto 2.5 No 1{table QD Xarelto MG MG t_with_ 2.5 MG food} Vitamin C Vitamin C No Vitamin C Vitamin D Vitamin D No Vitamin D Olmesartan Olmesartan No Olmesartan Medoxomil-H Medoxomil-H Medoxomil- CTZ 40-25 CTZ 40-25 HCTZ 40-25 MG MG MG Gabapentin Gabapentin No 1{capsu TID Gabapentin 300 MG 300 MG le} 300 MG Atorvastati Atorvastati No 1{table QD Atorvastat n Calcium n Calcium t} in Calcium 40 MG 40 MG 40 MG Ferrous Ferrous No 1{table BID Ferrous Sulfate 325 Sulfate 325 t} Sulfate (65 Fe) MG (65 Fe) MG 325 (65 Fe) MG amLODIPine amLODIPine No amLODIPine Besylate 10 Besylate 10 Besylate MG MG 10 MG Promethazin Promethazin No 1{table QD Promethazi e HCl 12.5 e HCl 12.5 t_as_ne ne HCl MG MG eded} 12.5 MG Clopidogrel Clopidogrel No 1{table QD Clopidogre Bisulfate Bisulfate t} l 75 MG 75 MG Bisulfate 75 MG traMADol traMADol No 1{table QD traMADol HCl 50 MG HCl 50 MG t_as_ne HCl 50 MG eded} doxycycline doxycycline No doxycyclin e Metoprolol Metoprolol No 1{table QD Metoprolol Succinate Succinate t} Succinate ER 50 MG ER 50 MG ER 50 MG traMADol traMADol No 1{table QD traMADol HCl 50 MG HCl 50 MG t_as_ne HCl 50 MG eded} Xarelto 2.5 Xarelto 2.5 No 1{table QD Xarelto MG MG t_with_ 2.5 MG food} Atorvastati Atorvastati No Atorvastat n Calcium n Calcium in Calcium 40 MG 40 MG 40 MG Vitamin C Vitamin C No Vitamin C Vitamin D Vitamin D No Vitamin D Gabapentin Gabapentin No 1{capsu TID Gabapentin 300 MG 300 MG le} 300 MG Promethazin Promethazin No 1{table QD Promethazi e HCl 12.5 e HCl 12.5 t_as_ne ne HCl MG MG eded} 12.5 MG Ferrous Ferrous No 1{table BID Ferrous Sulfate 325 Sulfate 325 t} Sulfate (65 Fe) MG (65 Fe) MG 325 (65 Fe) MG amLODIPine amLODIPine No amLODIPine Besylate 10 Besylate 10 Besylate MG MG 10 MG doxycycline doxycycline No doxycyclin e Olmesartan Olmesartan No Olmesartan Medoxomil-H Medoxomil-H Medoxomil- CTZ 40-25 CTZ 40-25 HCTZ 40-25 MG MG MG Clopidogrel Clopidogrel No 1{table QD Clopidogre Bisulfate Bisulfate t} l 75 MG 75 MG Bisulfate 75 MG traMADol traMADol No 1{table QD traMADol HCl 50 MG HCl 50 MG t_as_ne HCl 50 MG eded} doxycycline doxycycline No doxycyclin e Metoprolol Metoprolol No 1{table QD Metoprolol Succinate Succinate t} Succinate ER 50 MG ER 50 MG ER 50 MG Xarelto 2.5 Xarelto 2.5 No 1{table QD Xarelto MG MG t_with_ 2.5 MG food} Atorvastati Atorvastati No Atorvastat n Calcium n Calcium in Calcium 40 MG 40 MG 40 MG Metoprolol Metoprolol No 1{table QD Metoprolol Succinate Succinate t} Succinate ER 50 MG ER 50 MG ER 50 MG Vitamin C Vitamin C No Vitamin C Vitamin D Vitamin D No Vitamin D Gabapentin Gabapentin No 1{capsu TID Gabapentin 300 MG 300 MG le} 300 MG Promethazin Promethazin No 1{table QD Promethazi e HCl 12.5 e HCl 12.5 t_as_ne ne HCl MG MG eded} 12.5 MG Ferrous Ferrous No 1{table BID Ferrous Sulfate 325 Sulfate 325 t} Sulfate (65 Fe) MG (65 Fe) MG 325 (65 Fe) MG amLODIPine amLODIPine No amLODIPine Besylate 10 Besylate 10 Besylate MG MG 10 MG Olmesartan Olmesartan No Olmesartan Medoxomil-H Medoxomil-H Medoxomil- CTZ 40-25 CTZ 40-25 HCTZ 40-25 MG MG MG Immunizations Ordered Immunization Filled Immunization Date Status Commen ts Source Name Name FLUZONE HIGH DOSE FLUZONE HIGH DOSE 2022-02-12 Completed [facility] - OVER 65 OVER 65 15:07:00 [facility] FLUZONE HIGH DOSE FLUZONE HIGH DOSE 2022-02-12 Completed [facility] - OVER 65 OVER 65 15:07:00 [facility] FLUZONE HIGH DOSE FLUZONE HIGH DOSE 2022-02-12 Completed [facility] - OVER 65 OVER 65 15:07:00 [facility] FLUZONE HIGH DOSE FLUZONE HIGH DOSE 2022-02-12 Completed [facility] - OVER 65 OVER 65 15:07:00 [facility] FLUZONE HIGH DOSE FLUZONE HIGH DOSE 2022-02-12 Completed [facility] - OVER 65 OVER 65 15:07:00 [facility] FLUZONE HIGH DOSE FLUZONE HIGH DOSE 2022-02-12 Completed [facility] - OVER 65 OVER 65 15:07:00 [facility] FLUCELVAX QUAD PF 2021-02-[address] [facility] 2021-02-09 Completed [facility] - 14:17:00 [facility] FluAD FluAD 2021-02-09 Completed [facility] - 14:17:00 [facility] FluAD FluAD 2021-02-09 Completed [facility] - 14:17:00 [facility] FluAD FluAD 2021-02-09 Completed [facility] - 14:17:00 [facility] FluAD FluAD 2021-02-09 Completed [facility] - 14:17:00 [facility] FluAD FluAD 2021-02-09 Completed [facility] - 14:17:00 [facility] FluAD FluAD 2021-02-09 Completed [facility] - 14:17:00 [facility] FluAD FluAD 2021-02-09 Completed [facility] - 14:17:00 [facility] FluAD FluAD 2021-02-09 Completed [facility] - 14:17:00 [facility] FluAD FluAD 2021-02-09 Completed [facility] - 14:17:00 [facility] FluAD FluAD 2021-02-09 Completed [facility] - 14:17:00 [facility] FluAD FluAD 2021-02-09 Completed [facility] - 14:17:00 [facility] FluAD FluAD 2021-02-09 Completed [facility] - 14:17:00 [facility] FluAD FluAD 2021-02-09 Completed [facility] - 14:17:00 [facility] FluAD FluAD 2021-02-09 Completed [facility] - 14:17:00 [facility] FluAD FluAD 2021-02-09 Completed [facility] - 14:17:00 [facility] FluAD FluAD 2021-02-09 Completed [facility] - 14:17:00 [facility] FluAD FluAD 2021-02-09 Completed [facility] - 14:17:00 [facility] FluAD FluAD 2021-02-09 Completed [facility] - 14:17:00 [facility] FluAD FluAD 2021-02-09 Completed [facility] - 14:17:00 [facility] FluAD FluAD 2021-02-09 Completed [facility] - 14:17:00 [facility] FluAD FluAD 2021-02-09 Completed [facility] - 14:17:00 [facility] FluAD FluAD 2021-02-09 Completed [facility] 2020-[facility]-07 [facility]:[address] [facility] COVID-19 2020-11-03 Com[facility] 00:00:00 [facility] Vital Signs Vital Name Observation Time Observation Value Comments Source height 2022-06-25 15:20:00 63 [in_i] [facility] weight 2022-06-25 15:20:00 107.8 [lb_av] [facility] temperature 2022-06-25 15:20:00 96.7 [degF] [facility] bmi 2022-06-25 15:20:00 19.09 kg/m2 [facility] oximetry 2022-06-25 15:20:00 99 % [facility] respiratory rate 2022-06-25 15:20:00 18 /min Comm on [facility] blood pressure 2022-06-25 15:20:00 124 mm[Hg] [facility] - systolic [facility] blood pressure 2022-06-25 15:20:00 63 mm[Hg] [facility] - diastolic [facility] height 2022-06-25 15:40:00 63 [in_i] [facility] weight 2022-06-25 15:40:00 107.8 [lb_av] [facility] temperature 2022-06-25 15:40:00 96.7 [degF] [facility] bmi 2022-06-25 15:40:00 19.09 kg/m2 [facility] oximetry 2022-06-25 15:40:00 99 % [facility] respiratory rate 2022-06-25 15:40:00 18 /min Comm on [facility] blood pressure 2022-06-25 15:40:00 124 mm[Hg] [facility] - systolic [facility] blood pressure 2022-06-25 15:40:00 63 mm[Hg] [facility] - diastolic [facility] height 2022-04-23 15:00:00 63 [in_i] [facility] weight 2022-04-23 15:00:00 105.4 [lb_av] [facility] temperature 2022-04-23 15:00:00 97.3 [degF] [facility] bmi 2022-04-23 15:00:00 18.67 kg/m2 [facility] oximetry 2022-04-23 15:00:00 98 % [facility] respiratory rate 2022-04-23 15:00:00 18 /min Comm on [facility] blood pressure 2022-04-23 15:00:00 122 mm[Hg] [facility] - systolic [facility] blood pressure 2022-04-23 15:00:00 64 mm[Hg] [facility] - diastolic [facility] height 2022-02-12 14:50:00 63 [in_i] [facility] weight 2022-02-12 14:50:00 107.5 [lb_av] [facility] temperature 2022-02-12 14:50:00 97.2 [degF] [facility] bmi 2022-02-12 14:50:00 19.04 kg/m2 [facility] oximetry 2022-02-12 14:50:00 99 % [facility] respiratory rate 2022-02-12 14:50:00 18 /min Comm on [facility] blood pressure 2022-02-12 14:50:00 138 mm[Hg] [facility] blood pressure 2022-02-12 14:50:00 76 mm[Hg] [facility] - diastolic [facility] height 2021-12-11 14:50:00 63 [in_i] [facility] weight 2021-12-11 14:50:00 105 [lb_av] [facility] temperature 2021-12-11 14:50:00 97.8 [degF] [facility] bmi 2021-12-11 14:50:00 18.6 kg/m2 [facility] oximetry 2021-12-11 14:50:00 98 % [facility] respiratory rate 2021-12-11 14:50:00 16 /min Comm on [facility] blood pressure 2021-12-11 14:50:00 121 mm[Hg] [facility] - systolic [facility] blood pressure 2021-12-11 14:50:00 65 mm[Hg] [facility] - diastolic [facility] height 2021-10-17 14:20:00 63 [in_i] [facility] weight 2021-10-17 14:20:00 107.8 [lb_av] [facility] temperature 2021-10-17 14:20:00 97.3 [degF] [facility] bmi 2021-10-17 14:20:00 19.09 kg/m2 [facility] oximetry 2021-10-17 14:20:00 99 % [facility] respiratory rate 2021-10-17 14:20:00 18 /min Comm on [facility] blood pressure 2021-10-17 14:20:00 137 mm[Hg] [facility] - systolic [facility] blood pressure 2021-10-17 14:20:00 76 mm[Hg] [facility] - diastolic [facility] height 2021-09-18 14:30:00 63 [in_i] [facility] weight 2021-09-18 14:30:00 104.3 [lb_av] [facility] temperature 2021-09-18 14:30:00 97.4 [degF] [facility] bmi 2021-09-18 14:30:00 18.47 kg/m2 [facility] oximetry 2021-09-18 14:30:00 98 % [facility] respiratory rate 2021-09-18 14:30:00 17 /min [facility] blood pressure 2021-09-18 14:30:00 139 mm[Hg] [facility] - systolic [facility] blood pressure 2021-09-18 14:30:00 78 mm[Hg] [facility] height 2021-08-07 15:40:00 63 [in_i] [facility]-07 15:40:00 107.8 [lb_av] [facility] temperature 2021-08-07 15:40:00 97.5 [degF] [facility] bmi 2021-08-07 15:40:00 19.09 kg/m2 [facility] oximetry 2021-08-07 15:40:00 99 % [facility] 2021-08-07 15:40:00 17 /min [facility] blood pressure 2021-08-07 15:40:00 132 mm[Hg] [facility] blood pressure 2021-08-07 15:40:00 77 mm[Hg] [facility] height 2021-06-20 15:50:00 63 [in_i] [facility] weight 2021-06-20 15:50:00 108.4 [lb_av] Common [facility] temperature 2021-06-20 15:50:00 96.6 [degF] Common [facility] bmi 2021-06-20 15:50:00 19.2 kg/m2 [facility] oximetry 2021-06-20 15:50:00 100 % [facility] respiratory rate 2021-06-20 15:50:00 18 /min Comm on [facility] blood pressure 2021-06-20 15:50:00 138 mm[Hg] Common [facility] - systolic [facility] blood pressure 2021-06-20 15:50:00 76 mm[Hg] Common [facility] - diastolic [facility] height 2021-05-22 13:50:00 63 [in_i] [facility] weight 2021-05-22 13:50:00 108.7 [lb_av] [facility] temperature 2021-05-22 13:50:00 97.4 [degF] [facility] bmi 2021-05-22 13:50:00 19.25 kg/m2 [facility] oximetry 2021-05-22 13:50:00 98 % [facility] respiratory rate 2021-05-22 13:50:00 17 /min Comm on [facility] blood pressure 2021-05-22 13:50:00 139 mm[Hg] [facility] blood pressure 2021-05-22 13:50:00 78 mm[Hg] [facility] height 2021-04-18 14:20:00 63 [in_i] Common [facility] weight 2021-04-18 14:20:00 107.6 [lb_av] [facility] temperature 2021-04-18 14:20:00 98.1 [degF] Common [facility] bmi 2021-04-18 14:20:00 19.06 kg/m2 [facility] oximetry 2021-04-18 14:20:00 98 % [facility] respiratory rate 2021-04-18 14:20:00 17 /min Comm on [facility] blood pressure 2021-04-18 14:20:00 133 mm[Hg] Common [facility] - systolic [facility] blood pressure 2021-04-18 14:20:00 72 mm[Hg] [facility] - diastolic [facility] height 2021-03-13 15:10:00 63 [in_i] [facility] weight 2021-03-13 15:10:00 108 [lb_av] [facility] bmi 2021-03-13 15:10:00 19.13 kg/m2 [facility] height 2021-03-13 15:10:00 63 [in_i] [facility] weight 2021-03-13 15:10:00 106.6 [lb_av] [facility] temperature 2021-03-13 15:10:00 97.0 [degF] [facility] bmi 2021-03-13 15:10:00 18.88 kg/m2 [facility] oximetry 2021-03-13 15:10:00 98 % [facility] respiratory rate 2021-03-13 15:10:00 18 /min Comm on [facility] blood pressure 2021-03-13 15:10:00 138 mm[Hg] Common [facility] systolic [facility] blood pressure 2021-03-13 15:10:00 70 mm[Hg] [facility] diastolic [facility] Oxygen saturation in 2022-01-10 14:34:00 96 /min [facility] Arterial blood by Pulse oximetry Systolic blood 2022-01-10 14:17:00 161 mm[Hg] [facility] pressure Diastolic blood 2022-01-10 14:17:00 69 mm[Hg] [facility] pressure Heart rate 2022-01-10 13:00:00 53 /min [facility] Body temperature 2022-01-10 12:56:10 37.06 Syeda [facility] Respiratory rate 2022-01-10 12:56:10 18 /min [facility] Body weight 2022-01-10 10:39:00 51.574 kg [facility] BMI 2022-01-10 10:39:00 20.14 kg/m2 [facility] Body height 2022-01-04 16:20:00 160 cm [facility] Procedures Procedure Date / Time Performing Source Performed Clinician CBC WITH PLATELET AND DIFFERENTIAL 2022-01-10 Shane Brown 09:07:00 [facility] BASIC METABOLIC PANEL 2022-01-10 Shane Brown Rastafarian 09:07:00 Hospital ESTIMATED GFR 2022-01-10 Shane Brown 09:07:00 [facility] CBC WITH PLATELET AND DIFFERENTIAL 2022-01-09 NiurkaShane 10:12:00 [facility] BASIC METABOLIC PANEL 2022-01-09 NiurkaShane 10:12:00 Hospital ESTIMATED GFR 2022-01-09 Shane Brown 10:12:00 [facility] ESOPHAGOGASTRODUODENOSCOPY (EGD) 2022-01-08 Deuce Schneider Rastafarian 12:51:[facility] 2022-01-[address] 10:19:00 Hospital CBC HEMOGRAM 2022-01-08 Kimberly Reynoldsist 10:19:00 Hospital ESTIMATED GFR 2022-01-08 Kimberly Reynolds 10:19:00 Hospital BASIC METABOLIC PANEL 2022-01-[address] 08:41:00 Hospital CBC WITH PLATELET AND DIFFERENTIAL 2022-01-07 Caty Kyle Rastafarian 08:41:00 Hospital ESTIMATED GFR 2022-01-07 Kimberly Reynoldsist 08:41:00 Hospital HEMOGLOBIN & HEMATOCRIT 2022-01-07 Kimberly Reynolds dist 05:15:00 Hospital HEMOGLOBIN & HEMATOCRIT 2022-01-07 Kimberly Reynoldso dist 01:11:00 Hospital BASIC METABOLIC PANEL 2022-01-06 Sidney Solerist 11:39:00 Hospital CBC HEMOGRAM 2022-01-06 Sidney Solerist 11:39:00 Hospital MAGNESIUM LEVEL 2022-01-06 Sidney Solerist 11:39:00 Hospital PHOSPHORUS LEVEL 2022-01-06 Sidney Soler Rastafarian 11:39:00 Hospital ESTIMATED GFR 2022-01-06 Sidney Solerist 11:39:00 Hospital HEMOGLOBIN & HEMATOCRIT 2022-01-05 Liberty Snyder Lana Methodis t 19:53:00 Hospital CLOSTRIDIUM DIFFICILE TOXIN GENE 2022-01-05 Cynthia Jordan (QUALITATIVE REAL-TIME PCR) 17:52:00 Hosp ital POC GLUCOSE 2022-01-05 Kimberly Reynolds 17:14:00 Hospital POC GLUCOSE 2022-01-05 Kimberly Reynolds 13:20:00 Hospital BASIC METABOLIC PANEL 2022-01-05 Lashonda Fernandez 10:31:00 Hospital CBC HEMOGRAM 2022-01-05 Lashonda Fernandez 10:31:00 Hospital MAGNESIUM LEVEL 2022-01-05 Lashonda Fernandez 10:31:00 Hospital PHOSPHORUS LEVEL 2022-01-05 Lashonda Fernandez 10:31:00 Hospital IONIZED CALCIUM 2022-01-05 Lashonda Fernandez 10:31:00 Hospital ESTIMATED GFR 2022-01-05 Lashonda Fernandez 10:31:00 Hospital POC GLUCOSE 2022-01-05 Kimberly Reynolds 09:25:00 Hospital TRANSFUSE RED BLOOD CELLS 2022-01-05 Lashonda Fernandez ist 06:17:00 Hospital POC GLUCOSE 2022-01-05 Kimberly Reynolds 05:23:00 Hospital COMPREHENSIVE METABOLIC PANEL 2022-01-05 Cynthia Jordan 03:48:00 Hospital ESTIMATED GFR 2022-01-05 Cynthia Jordan 03:48:00 Hospital CBC WITH PLATELET AND DIFFERENTIAL 2022-01-05 Cynthia Jordanist 03:45:00 Hospital PROTHROMBIN TIME WITH INR 2022-01-05 Cynthia Jordan [facility] 03:45:00 Hospital POC GLUCOSE 2022-01-05 Kimberly Reynolds 01:21:00 Hospital OR [place] < 1 HOUR 2022-01-04 Rigo Schneider Rastafarian 20:11:00 B. Hospital ARTERIAL BLOOD GAS, CORRECTED 2022-01-04 Kimberly Reynolds 19:11:00 Hospital SODIUM LEVEL, SYRINGE 2022-01-[address] 19:11:00 Hospital POTASSIUM, SYRINGE 2022-01-04 Kimberly Reynoldsist 19:11:00 Hospital HEMOGLOBIN, SYRINGE 2022-01-04 Kimberly Reynolds 19:11:00 Hospital IONIZED CALCIUM, ARTERIAL 2022-01-04 Kimberly Reynolds hodist 19:11:00 Hospital GLUCOSE LEVEL, SYRINGE 2022-01-04 Kimberly Reynolds ist 19:11:00 Hospital MAGNESIUM LEVEL 2022-01-04 Kimberly Reynoldsist 19:11:00 Hospital ACTIVATED CLOTTING TIME 2022-01-04 Kimberly Reynolds dist 19:10:00 Hospital RI AN ELECTIVE SUPRAGLOTTIC AIRWAY 2022-01-04 Gemma Riley Rastafarian 16:34:00 [facility] LOWER EXTREMITY ANGIOGRAM,POSSIBLE 2022-01-04 Primo Coe ANGIOPLASTY,POSSIBLE STENT 16:23:00 [facility] OCCULT BLOOD, STOOL 2022-01-04 Singh Cevallos Rastafarian 15:02:00 Hospital TRANSFUSE RED BLOOD CELLS 2022-01-04 Dot Alexandra Method ist 11:02:00 Hospital BASIC METABOLIC PANEL 2022-01-04 Lana Macario Rastafarian 07:55:00 Hospital CBC WITH PLATELET AND DIFFERENTIAL 2022-01-04 Trisha Macario Rastafarian 07:55:00 Hospital ANTI XA, UNFRACTIONATED 2022-01-04 Brandon Somersis t 07:55:00 Hospital ESTIMATED GFR 2022-01-04 Kimberly Reynolds 07:55:00 Hospital ANTI XA, UNFRACTIONATED 2022-01-04 Brandon Somers t 00:18:00 Hospital ANTI XA, UNFRACTIONATED 2022-01-03 Kimberly Reynolds dist 22:09:00 Hospital XR FOOT 3+ VW RIGHT 2022-01-03 Lola Spencer Rastafarian 22:01:09 [facility] ANTI XA, UNFRACTIONATED 2022-01-03 Brandon Somers t 15:40:00 [facility] ZCOD19 ANTI-SPIKE IGG ANTIBODY 2022-01-03 Kerri Hu TITER 07:59:00 [facility] ANTI XA, UNFRACTIONATED 2022-01-03 Brandon Somers t 07:59:00 [facility]19 SEROLOGY PATIENT 2022-01-03 Doris Hu odelena SURVEILLANCE 07:59:00 [facility] CBC WITH PLATELET AND DIFFERENTIAL [facility]22[facility]01-03 [facility]00 [facility] COMPREHENSIVE METABOLIC PANEL 2022-01-03 [facility] 07:59:00 [facility] ESTIMATED GFR 2022-01-03 [facility] 07:59[facility]00 [facility] ECG ED PRELIMINARY INTERPRETATION 2022-01-03 Brandon Somersist 07:52:22 Hospital TROPONIN T 2022-01-03 Bk Seth 05:55:00 Hospital TROPONIN T 2022-01-03 Bk Seth 02:29:00 Hospital PROTHROMBIN TIME WITH INR 2022-01-02 Brandon Somers Method ist 23:54:00 Hospital PARTIAL THROMBOPLASTIN TIME (PTT) 2022-01-02 Brandon Somers Rastafarian 23:54:00 Hospital TYPE AND SCREEN 2022-01-02 Brandon Somersist 23:54:00 Hospital ANTI XA, UNFRACTIONATED 2022-01-02 Brandon Somers Methodis t 23:54:00 Hospital PREPARE RBC 2022-01-02 Lashonda Fernandezist 23:54:00 Hospital ECG 12-LEAD 2022-01-02 Bk Sethist 23:44:27 Hospital COVID-19 QUALITATIVE RT-PCR 2022-01-02 Bk Seth ethodist 23:15:00 [facility] CBC WITH PLATELET AND DIFFERENTIAL 2022-01-02 Mejia Seth 23:15:00 [facility] COMPREHENSIVE METABOLIC PANEL 2022-01-02 Bk Seth 23:15:00 Hospital B NATRIURETIC PEPTIDE 2022-01-[address] 23:15:00 Hospital TROPONIN T 2022-01-02 Bk Seth 23:15:00 Hospital ESTIMATED GFR 2022-01-02 Bk Seth 23:15:00 [facility] US DUPLEX ARTERIAL LOWER EXTREMITY 2022-01-02 Singh Cevallos BILATERAL 20:30:00 [facility] BASIC METABOLIC PANEL 2021-09-[address] 11:02:00 [facility] CBC WITH PLATELET AND DIFFERENTIAL 2021-09-12 Ruel Jarvis 11:02:00 [facility] FERRITIN LEVEL 2021-09-12 Ruel Jarvis 11:02:00 [facility] TOTAL IRON BINDING CAPACITY 2021-09-12 Ruel Jarvisodist 11:02:00 [facility] ESTIMATED GFR 2021-09-12 Ruel Jarvis 11:02:00 [facility] XR FOOT 3+ VW LEFT 2021-09-11 Lola Spencer 11:53:05 [facility] CBC WITH PLATELET AND DIFFERENTIAL 2021-09-11 Bridget Rosa 09:26:00 [facility] COMPREHENSIVE METABOLIC PANEL 2021-09-11 Bridget Rosa thodist 09:26:00 [facility] PHOSPHORUS LEVEL 2021-09-11 Bridget Rosa 09:26:00 [facility] MAGNESIUM LEVEL 2021-09-11 Bridget Rosa 09:26:00 [facility] ESTIMATED GFR 2021-09-11 Bridget Rosa 09:26:00 [facility] ANAEROBIC CULTURE 2021-09-10 Lola Spencer 21:34:00 [facility] FUNGUS CULTURE 2021-09-10 Lola Spencer 21:34:00 [facility] AEROBIC CULTURE 2021-09-10 Lola Spencer 21:34:00 [facility] AFB CULTURE 2021-09-10 Lola Spencer 21:34:00 [facility] FUNGUS SMEAR 2021-09-10 Lola Spencer 21:34:00 [facility] AFB STAIN 2021-09-10 Lola Spencer 21:34:00 [facility] RI AN ELECTIVE SUPRAGLOTTIC AIRWAY 2021-09-10 Shabana Cancino 21:20:00 Hospital AMPUTATION, TOE 2021-09-10 Lola Spencer 21:02:00 [facility] SURGICAL PATHOLOGY REQUEST 2021-09-10 Ruel Jarvis Ri thodist 13:39:00 [facility] CBC WITH PLATELET AND DIFFERENTIAL 2021-09-10 Bridget Rosa 10:45:00 [facility] COMPREHENSIVE METABOLIC PANEL 2021-09-10 Bridget Rosa thodist 10:45:00 [facility] MAGNESIUM LEVEL 2021-09-10 Bridget Rosa 10:45:00 [facility] PHOSPHORUS LEVEL 2021-09-10 Bridget Rosa 10:45:00 [facility] TYPE AND SCREEN 2021-09-10 Bridget Rosa 10:45:00 [facility] ESTIMATED GFR 2021-09-10 Bridget Rosa 10:45:00 [facility] VANCOMYCIN LEVEL, TROUGH 2021-09-[address] 06:40:00 Hospital XR CHEST 1 VW PORTABLE 2021-09-09 Bridget Rosa 16:33:57 [facility] CBC WITH PLATELET AND DIFFERENTIAL 2021-09-09 Bridget Rosa 11:15:00 [facility] COMPREHENSIVE METABOLIC PANEL 2021-09-09 Bridget Rosa Ri thodist 11:15:00 [facility] MAGNESIUM LEVEL 2021-09-09 Bridget Rosa 11:15:00 [facility] PHOSPHORUS LEVEL 2021-09-09 Bridget Rosa 11:15:00 [facility] ANTI XA, UNFRACTIONATED 2021-09-[address] 11:15:00 Hospital ESTIMATED GFR 2021-09-09 Bridget Rosa 11:15:00 [facility] TTE COMPLETE, WO CONTRAST, W 2021-09-08 Bridget Rosa hodist DOPPLER ([id number]) 21:48:00 [facility] CBC WITH PLATELET AND DIFFERENTIAL 2021-09-08 Andre Bryant 17:11:00 Hospital CBC WITH PLATELET AND DIFFERENTIAL 2021-09-08 Bridget Rosa 09:16:00 [facility] COMPREHENSIVE METABOLIC PANEL 2021-09-08 Bridget Rosa 09:16:00 [facility] ESTIMATED GFR 2021-09-08 Bridget Rosa 09:16:[address] [facility] CT ANGIOGRAM PE CHEST 2021-09-07 Singh Cevallos 14:25:12 Hospital XR CHEST 1 VW PORTABLE 2021-09-07 Nadege Dang 08:31:45 [facility] CBC WITH PLATELET AND DIFFERENTIAL 2021-09-07 Bridget Rosa 06:50:00 [facility] COMPREHENSIVE METABOLIC PANEL 2021-09-07 Bridget Rosa 06:50:00 [facility] MAGNESIUM LEVEL 2021-09-07 Bridget Rosa 06:50:00 [facility] PHOSPHORUS LEVEL 2021-09-07 Bridget Rosa 06:50:00 [facility] B NATRIURETIC PEPTIDE 2021-09-07 Nadege Dang 06:50:00 [facility] ESTIMATED GFR 2021-09-07 Bridget Rosa 06:50:00 [facility] CBC WITH PLATELET AND DIFFERENTIAL 2021-09-06 Singh Cevallos 17:14:00 [facility] PARTIAL THROMBOPLASTIN TIME (PTT) 2021-09-06 Singh Cevallos 17:14:00 Hospital CBC WITH PLATELET AND DIFFERENTIAL 2021-09-06 Singh Cevallos 08:57:00 Hospital COMPREHENSIVE METABOLIC PANEL 2021-09-06 Singh Cevallos 08:57:00 Hospital MAGNESIUM LEVEL 2021-09-06 Singh Cevallos 08:57:00 Hospital PHOSPHORUS LEVEL 2021-09-06 Singh Cevallos 08:57:00 Hospital ESTIMATED GFR 2021-09-06 Singh Cevallos 08:57:00 Hospital BASIC METABOLIC PANEL 2021-09-06 Chari, Eder Manning 02:10:00 [facility] CBC WITH PLATELET AND DIFFERENTIAL 2021-09-06 Marcelino, Eder Villalobosist 02:10:00 [facility] LACTIC ACID LEVEL 2021-09-06 Marcelino, Eder Rastafarian 02:10:00 [facility] MAGNESIUM LEVEL 2021-09-06 Marcelino, Eder Villalobosist 02:10:00 [facility] PHOSPHORUS LEVEL 2021-09-06 Marcelino, Eder Villalobosist 02:10:00 [facility] ESTIMATED GFR 2021-09-06 Chari, Eder Manning 02:10:00 [facility] PROTHROMBIN TIME WITH INR 2021-09-06 Eder Marcelino ist 02:10:00 [facility] PARTIAL THROMBOPLASTIN TIME (PTT) 2021-09-06 Marcelino, Eder Manning 02:10:00 [facility] OR [place] < 1 HOUR 2021-09-06 Singh Cevallos 00:10:39 Hospital POC GLUCOSE 2021-09-05 Bridget Rosa 23:43:00 [facility] ACTIVATED CLOTTING TIME 2021-09-05 Bridget Rosa t 22:51:00 [facility] ACTIVATED CLOTTING TIME 2021-09-05 Bridget Rosa t 22:27:00 [facility] ACTIVATED CLOTTING TIME 2021-09-05 Bridget Rosa t 21:57:00 [facility] ARTERIAL BLOOD GAS, CORRECTED 2021-09-05 Bridget Rosa 21:20:00 [facility] SODIUM LEVEL, SYRINGE 2021-09-05 Bridget Rosa 21:20:00 [facility] POTASSIUM, SYRINGE 2021-09-05 Bridget Rosa 21:20:00 [facility] HEMOGLOBIN, SYRINGE 2021-09-05 Bridget Rosa 21:20:00 [facility] IONIZED CALCIUM, ARTERIAL 2021-09-05 Bridget Rosa Method ist 21:20:00 [facility] GLUCOSE LEVEL, SYRINGE 2021-09-05 Bridget Rosaist 21:20:00 [facility] MAGNESIUM LEVEL 2021-09-05 Bridget Rosa 21:20:00 [facility] ACTIVATED CLOTTING TIME 2021-09-05 Bridget Rosais t 21:20:00 [facility] ARTERIAL BLOOD GAS, CORRECTED 2021-09-05 Bridget Rosa thodist 20:30:00 [facility] SODIUM LEVEL, SYRINGE 2021-09-05 Bridget Rosa 20:30:00 [facility] POTASSIUM, SYRINGE 2021-09-05 Bridget Rosaist 20:30:00 [facility] HEMOGLOBIN, SYRINGE 2021-09-05 Bridget Rosaist 20:30:00 [facility] IONIZED CALCIUM, ARTERIAL 2021-09-05 Bridget Rosa ist 20:30:00 [facility] GLUCOSE LEVEL, SYRINGE 2021-09-05 Bridget Rosaist 20:30:00 [facility] MAGNESIUM LEVEL 2021-09-05 Bridget Rosa 20:30:00 [facility] ACTIVATED CLOTTING TIME 2021-09-05 Bridget Rosa t 20:21:00 [facility] ACTIVATED CLOTTING TIME 2021-09-05 Bridget Rosa 20:12:00 [facility] ACTIVATED CLOTTING TIME 2021-09-05 Bridget Rosa t 20:03:00 [facility] ARTERIAL LINE 2021-09-05 Kerri Brenner 19:24:37 [facility] ACTIVATED CLOTTING TIME 2021-09-05 Bridget Rosa 18:52:00 [facility] URINE CULTURE 2021-09-05 Singh Cevallos 18:19:00 [facility] URINALYSIS SCREEN AND MICROSCOPY, 2021-09-05 Singh Cevallos WITH REFLEX TO CULTURE 18:19:00 Hospital RI AN ELECTIVE ENDOTRACHEAL AIRWAY 2021-09-05 Kerri Brenner 18:12:00 [facility] ENDARTERECTOMY, FEMORAL 2021-09-05 MartPhongy Methodis t 17:53:00 Hospital ARTERIAL LINE 2021-09-05 Jim Gorman Rastafarian 17:48:24 Hospital ESTIMATED GFR 2021-09-05 Bridget Rosa Rastafarian 17:33:00 [facility] POC PANEL 2021-09-05 Bridget Rosa Rastafarian 17:33:00 [facility] CBC WITH PLATELET AND DIFFERENTIAL 2021-09-05 Andre Bryant Rastafarian 17:27:00 Hospital BASIC METABOLIC PANEL 2021-09-05 Flynn Bryant Rastafarian 17:27:00 Hospital ESTIMATED GFR 2021-09-05 Bridget Rosa Rastafarian 17:27:00 [facility] SURGICAL PATHOLOGY REQUEST 2021-09-05 Bridget Rosa [facility] 13:40:00 [facility] XR CHEST 1 VW PORTABLE 2021-09-05 Flynn Bryant t 12:00:48 Hospital TYPE AND SCREEN 2021-09-05 Kerri Escobedo 06:25:00 [facility] PREPARE FRESH FROZEN PLASMA 2021-09-05 Flynn Bryant Met hodist 06:25:00 Hospital PREPARE PLATELET PHERESIS 2021-09-05 Flynn Bryant [facility] 06:25:00 Hospital PREPARE RBC 2021-09-05 Clement Perkins Rastafarian 06:25:00 [facility] VANCOMYCIN LEVEL, TROUGH 2021-09-[address] 06:24:00 Hospital BASIC METABOLIC PANEL 2021-09-05 Flynn Bryant Rastafarian 06:24:00 Hospital CBC WITH PLATELET AND DIFFERENTIAL 2021-09-05 Andre Bryant Rastafarian 06:24:00 Hospital PROTHROMBIN TIME WITH INR 2021-09-05 Flynn Bryant [facility] 06:24:00 Hospital PARTIAL THROMBOPLASTIN TIME (PTT) 2021-09-05 Sriram Bryant Rastafarian 06:24:00 Hospital ESTIMATED GFR 2021-09-05 Bridget Rosa Rastafarian 06:24:00 [facility] COVID-19 QUALITATIVE RT-PCR 2021-09-05 Flynn Bryant Met hodist 04:28:00 Hospital CBC WITH PLATELET AND DIFFERENTIAL 2021-09-04 Laeeq, Angeles Villalobosist 10:05:00 Hospital BASIC METABOLIC PANEL 2021-09-04 Laeeq, Angeles Villalobosis t 10:05:00 Hospital MAGNESIUM LEVEL 2021-09-04 Laeeq, Angeles Drake Rastafarian 10:05:00 Hospital ESTIMATED GFR 2021-09-04 Laeeq, Angeles Villalobosist 10:05:00 Hospital PARTIAL THROMBOPLASTIN TIME (PTT) 2021-09-03 Laeeq, Angeles moreno Rastafarian 23:04:00 Hospital US DUPLEX VENOUS UPPER EXTREMITY 2021-09-03 Laeeq, Angeles maciel Rastafarian LEFT 20:51:20 Hospital PARTIAL THROMBOPLASTIN TIME (PTT) 2021-09-03 Laeeq, Angeles moreno Rastafarian 17:41:00 Hospital PARTIAL THROMBOPLASTIN TIME (PTT) 2021-09-03 Santos Duránist 14:26:[address] [facility] CT ANGIOGRAM ABDOMINAL AORTA AND 2021-09-03 Singh Cevallos BILATERAL ILIOFEMORAL RUNOFF W WO 09:40:46 Hospital CONTRAST BASIC METABOLIC PANEL 2021-09-03 Laeeq, Angeles Patterson t 07:23:00 Hospital CBC WITH PLATELET AND DIFFERENTIAL 2021-09-03 AbraneqAngelesist 07:23:00 Hospital PARTIAL THROMBOPLASTIN TIME (PTT) 2021-09-03 Laeeq, Angeles moreno Rastafarian 07:23:00 Hospital ESTIMATED GFR 2021-09-03 Laeeq, Angeles Villalobosist 07:23:00 Hospital BASIC METABOLIC PANEL 2021-09-03 Laeeq, Angeles Patterson t 06:34:00 Hospital PARTIAL THROMBOPLASTIN TIME (PTT) 2021-09-03 Santos Durán 06:34:00 [facility] PARTIAL THROMBOPLASTIN TIME (PTT) 2021-09-02 Kerri Hu 23:39:00 [facility] PARTIAL THROMBOPLASTIN TIME (PTT) 2021-09-02 eKrri Hu 14:56:00 [facility] VENOUS BLOOD GAS 2021-09-02 Laeeq, Angeles Manning 14:56:00 Hospital BETA HYDROXYBUTYRATE 2021-09-02 Laeeq, Angeles Drake Rastafarian 14:56:00 Hospital LACTIC ACID LEVEL 2021-09-02 Laeeq, Angeles Drake Rastafarian 14:56:00 Hospital VANCOMYCIN LEVEL, RANDOM 2021-09-[address] 07:39:00 [facility] COMPREHENSIVE METABOLIC PANEL 2021-09-02 Laeeq, Angeles Drake Rastafarian 07:39:00 Hospital MAGNESIUM LEVEL 2021-09-02 Laeeq, Angeles Drake Rastafarian 07:39:00 Hospital PHOSPHORUS LEVEL 2021-09-02 Laeeq, Angeles Drake Rastafarian 07:39:00 Hospital PARTIAL THROMBOPLASTIN TIME (PTT) 2021-09-02 Kerri Hu 07:39:00 [facility] ESTIMATED GFR 2021-09-02 Laeeq, Angeles Villalobosist 07:39:00 [facility] CBC WITH PLATELET AND DIFFERENTIAL 2021-09-02 Laeeq, Angeles Villalobosist 06:08:00 Hospital PARTIAL THROMBOPLASTIN TIME (PTT) 2021-09-01 Kerri Hu 22:05:00 [facility] PARTIAL THROMBOPLASTIN TIME (PTT) 2021-09-01 Santos Durán 13:28:00 [facility] CBC WITH PLATELET AND DIFFERENTIAL 2021-09-01 Kerri Hu 11:04:00 [facility] COMPREHENSIVE METABOLIC PANEL 2021-09-01 Me zo Hu 11:04:00 [facility] MAGNESIUM LEVEL 2021-09-01 LaeeqAngelesist 11:04:00 Hospital PHOSPHORUS LEVEL 2021-09-01 Laeeq, Angeles Drake Rastafarian 11:04:00 Hospital ESTIMATED GFR 2021-09-01 Kerri Hu 11:04:00 [facility] PARTIAL THROMBOPLASTIN TIME (PTT) 2021-09-01 Angeles Caceresist 05:29:00 Hospital US DUPLEX ARTERIAL LOWER EXTREMITY 2021-09-01 Andre Bryant Rastafarian LEFT 01:39:02 [facility] MRI LOWER EXTREMITY WO CONTRAST 2021-08-31 Lola Spencer Rastafarian LEFT 22:41:49 [facility] MRI BRAIN WO CONTRAST 2021-08-31 Flynn Bryant Rastafarian 22:00:49 Hospital PARTIAL THROMBOPLASTIN TIME (PTT) 2021-08-31 Ashley Angelesady Villalobosist 21:26:00 Hospital PARTIAL THROMBOPLASTIN TIME (PTT) 2021-08-31 Kerri Hu 13:23:00 [facility] XR FOOT 3+ VW RIGHT 2021-08-31 Chavez Duránist 11:19:03 [facility]19 ANTI-SPIKE IGG ANTIBODY 2021-08-31 Kerri Hu TITER 10:29:00 [facility] ZZCOVID19 SEROLOGY PATIENT 2021-08-31 Doris Hu SURVEILLANCE 10:29:00 [facility] C-REACTIVE PROTEIN 2021-08-31 Kerri Hu 10:29:00 [facility] CONSULT TO OSTOMY CARE NURSE 2021-08-31 Met Nini hodist 09:28:07 [facility] US DUPLEX VENOUS LOWER EXTREMITY 2021-08-31 Carmine Durán Rastafarian RIGHT 07:35:41 [facility] US DUPLEX ARTERIAL LOWER EXTREMITY 2021-08-31 Darryl Durán Rastafarian RIGHT 07:35:22 [facility] COVID-19 QUALITATIVE RT-PCR 2021-08-31 Chavez Durán thodist 07:20:00 [facility] COMPREHENSIVE METABOLIC PANEL 2021-08-31 Chavez Durán Rastafarian 06:07:00 [facility] CBC WITH PLATELET AND DIFFERENTIAL 2021-08-31 Darryl Durán Rastafarian 06:07:00 [facility] [facility] PROTHROMBIN TIME WITH INR 2021-08-31 Chavez Durán Meth odist 06:07:00 [facility] PARTIAL THROMBOPLASTIN TIME (PTT) 2021-08-31 Santos Durán 06:07:00 [facility] ESTIMATED GFR 2021-08-31 Chavez Duránist 06:07:00 [facility] ANTI XA, UNFRACTIONATED 2021-08-31 Chavez Durán Method ist 06:07:00 [facility] RI CRITICAL CARE ILL/INJURED 2021-08-31 Chavez Durán ethodist PATIENT INIT 30-74 MIN 05:23:44 [facility] Plan of Care Planned Activity Planned Date Details Comments Source Future Scheduled 2022-05-23 65+ [facility]AL [facility] Test 14:31:50 VACCINE (1 - PCV) [code = 65+ PNEUMOCOCCAL VACCINE (1 - PCV)] Future Scheduled 2022-05-23 Hepatitis C screening [facility] Test 14:31:50 (procedure) [code = 034357802] Future Scheduled 2022-05-23 SHINGLES VACCINES (1 Met [facility] Test 14:31:50 of 2) [code = SHINGLES VACCINES (1 of 2)] Future Scheduled 2022-05-23 BREAST CANCER [facility] Test 14:31:50 SCREENING [code = BREAST CANCER SCREENING] Future Scheduled 2022-05-23 COLONOSCOPY SCREENING [facility] Test 14:31:50 [code = COLONOSCOPY SCREENING] Future Scheduled 2022-05-23 COVID-19 VACCINE (4 - [facility] Test 14:31:50 Booster for Moderna series) [code = COVID-19 VACCINE (4 - Booster for Moderna series)] Future Scheduled 2022-05-23 INFLUENZA VACCINE [facility] Test 14:31:50 [code = INFLUENZA VACCINE] Encounters Start End Encounter Admission Attending Care Care Encounter Source Date/Time Date/Time Type Type Clinicians Facility Department ID 2022-06-24 Outpatient Somers, [facility] [id number] Common 07:32:00 Tristen [id number] [facility] 2022-06-21 Outpatient Somers, [facility] [id number] Common 09:36:01 Tristen [id number] [facility] 2022-04-26 Outpatient Somers, [facility] [id number] Common 12:45:01 Tristen [facility] 2022-04-19 Outpatient Somers, [facility] [id number] Common 11:42:00 Tristen [facility] 2021-06-13 Outpatient Somers, [facility] [id number] Common 14:30:45 Tristen [facility] 2021-06-13 Outpatient Somers, [facility]LML[facility] STL[facility] [id number] Common 14:19:25 Tristen [id number] [facility] 2021-06-13 Outpatient Somers, STLMLC STLMLC [id number] Common 14:04:08 [facility] [id number] 2022-06-25 2022-06-25 OFFICE STLMLC STLMLC [id number] Co mmon 00:00:00 00:00:00 VISIT [facility] ESTAB PT - CHI LEVEL 4 [facility] 2022-06-25 2022-06-25 SUB ANNUAL STLMLC STLMLC [id number] Common 00:00:00 00:00:00 MCR [facility] WELLNESS - CHI VISIT [facility] 2022-06-03 2022-06-03 (TEL) STLMLC STLMLC [id number] Co mmon 00:00:00 00:00:00 [facility] 2022-04-23 2022-04-23 OFFICE STLMLC STLMLC [id number] Co mmon 00:00:00 00:00:00 VISIT [facility] ESTAB PT - CHI LEVEL 4 [facility] 2022-02-12 2022-02-12 OFFICE STLMLC STLMLC [id number] Co mmon 00:00:00 00:00:00 VISIT [facility] ESTAB PT - CHI LEVEL 4 [facility] 2022-02-05 2022-02-05 Travel 1.2.840.1 1.2.100.443 [id number] Methodi 00:00:00 00:00:[address] 3.430.2.7 0.2.7.3.698 Ho spita .3.620180 084.8 l .8 2022-01-22 2022-01-22 (TEL) STLMLC STLMLC [id number] Co mmon 00:00:00 00:00:00 [facility] 2022-01-16 2022-01-16 (TEL) STLMLC STLMLC [id number] Co mmon 00:00:00 00:00:00 [facility] 2022-01-14 2022-01-14 Travel 1.2.840.1 1.2.539.746 9469 [id number] Methodi 00:00:00 00:00:[address] 3.430.2.7 0.2.7.3.698 Ho spita .3.141286 084.8 l .8 2022-01-14 2022-01-14 Orders Flaherty, 1.2.840.1 [id number] 2099 [id number] [facility]i 00:00:00 00:00:00 Only Stephania 64763.1.[address] 3.430.2.7 Hospit a .3.417681 l .8 2022-01-14 2022-01-14 Orders Flaherty, 1.2.840.1 [id number] 2099 [id number] Methodi 00:00:00 00:00:00 Only Stephania 87207.1.[address] 3.430.2.7 Hospit a .3.868081 l .8 2022-01-02 2022-01-10 Hospital Brandon Somers 1.2.840.1 [id number] Methodi 17:47:00 17:14:00 Encounter Camilo Hu 26989.1.[address] Kimberly Reynolds 3.430.2.7 [facility] .3.819760 l .8 2022-01-02 2022-01-10 Inpatient [facility] 040 [id number] [place] 00:00:00 00:00:[address] 2022-01-08 2022-01-08 Surgery Wyatt, 1.2.840.1 [id number] 2099 [id number] Methodi 09:17:00 09:42:00 Rigo Lux [address]362.1.[address] 3.430.2.7 Hospit a .3.837684 l .8 2022-01-08 2022-01-08 Anesthesia Tejas, 1.2.840.1 [id number] 047 [id number] Methodi 07:56:00 08:12:00 Event Arvin 00042.1.[address] Milvia 3.430.2.7 Hospit a .3.210076 l .8 2022-01-04 2022-01-04 Surgery Saravanan, 1.2.840.1 [id number] 5992 Methodi 13:55:00 16:05:[address] Saravanan-Hsi 3.430.2.7 Hosp edgard .3.562679 l .8 2022-01-04 2022-01-04 Anesthesia Bala Riley 1.2.840.1 [id number] Methodi 11:23:00 15:22:00 Event Marisol Cosby 44982.1.[address] 3.430.2.7 Hospit a .3.086219 l .8 2022-01-02 2022-01-03 Office MartSingh 1.2.840.1 [id number] 18200 Methodi 15:00:00 09:08:[address] 3.430.2.7 Hospit a .3.132974 l .8 2022-01-02 2022-01-03 Outpatient [facility]ART[facility]H [facility] [id number] 8398 [place] 00:00:00 00:00:[address] 2022-01-02 2022-01-02 Travel 1.2.840.1 1.2.632.540 9047 153190 Methodi 00:00:00 00:00:[address] 3.430.2.7 0.2.7.3.698 spita .3.610507 084.8 l .8 2022-01-02 2022-01-02 Outpatient [facility] [id number] 8205 [place] 00:00:00 00:00:[address] 2021-12-31 2021-12-31 Telephone Reynold 1.2.840.1 [id number] Methodi 00:00:00 00:00:[address] 3.430.2.7 Hospit a .3.317206 l .8 2021-12-27 2021-12-27 (TEL) STLMLC STLMLC [id number] Co mmon 00:00:00 00:00:00 [facility] 2021-12-13 2021-12-13 (TEL) STLMLC STLMLC [id number] Co mmon 00:00:00 00:00:00 [facility] 2021-12-11 2021-12-11 OFFICE STLMLC STLMLC [id number] Co mmon 00:00:00 00:00:00 VISIT [facility] ESTAB PT - CHI LEVEL 4 [facility] 2021-11-30 2021-11-30 Outpatient DMG DM [id number] 022 [facility] 07:16:00 07:16:00 0715 [facility] 2021-10-17 2021-10-17 OFFICE STLMLC STLMLC [id number] Co mmon 00:00:00 00:00:00 VISIT [facility] ESTAB PT - CHI LEVEL 4 [facility] 2021-09-21 2021-09-21 (TEL) STLMLC STLMLC [id number] Co mmon 00:00:00 00:00:00 [facility] 2021-09-18 2021-09-18 (HOSP F/U) STLMLC STLMLC [id number] Common 00:00:00 00:00:00 [facility] 2021-09-14 2021-09-14 (TEL) STLMLC STLMLC [id number] Co mmon 00:00:00 00:00:00 [facility] 2021-08-31 2021-09-12 [facility] Chavez Durán 1.2.840 .1 [id number] Methodi 00:20:00 16:31:00 Encounter Irwin Syed 45967.1.1 099 Camilo Hu 3.430.2.7 [facility] .3.808328 l Bridget Rosa .8 Ruel Jarvis 2021-08-31 2021-09-12 [facility] 074 2100 [id number] [place] 00:00:00 00:00:00 , RUEL [address] 2021-09-10 2021-09-10 Surgery Tj, 1.2.840.1 [id number] 9988 Methodi 15:50:00 16:55:[address] Kunjan 3.430.2.7 Hospit a .3.462824 l .8 2021-09-10 2021-09-10 Anesthesia Tanya Callaway. 1.2.840.1 10 [id number] Methodi 16:03:00 16:53:00 Event Santiago Franco 74883.1.[address] 3.430.2.7 Hospit a .3.907144 l .8 2021-09-05 2021-09-05 Anesthesia Merary Fernandez 1.2.840. 1 [id number] Methodi 12:58:00 18:35:00 Event Amalia Anthony Parag 20884.1.[address] 3.430.2.7 Hospit a .3.337818 l .8 2021-09-05 2021-09-05 Surgery Singh Cevallos 1.2.840.1 [id number] 62004 Methodi 13:20:00 16:50:[address] 3.430.2.7 Hospit a .3.141796 l .8 2021-08-31 2021-08-31 Travel 1.2.840.1 1.2.102.714 8032 803945 Methodi 00:00:00 00:00:[address] 3.430.2.7 0.2.7.3.698 Ho spita .3.155679 084.8 l .8 2021-08-20 2021-08-20 Telephone Victoriano 1.2.840.1 [id number] 21 [id number] Methodi 00:00:00 00:00:[address] 3.430.2.7 Hospit a .3.268568 l .8 2021-08-07 2021-08-07 OFFICE STLMLC STLMLC [id number] Co mmon 00:00:00 00:00:00 VISIT [facility] EST[facility] PT - CHI LEVEL 4 [facility] 2021-06-29 2021-06-29 (TEL) STLMLC STLMLC [id number] Co mmon 00:00:00 00:00:00 [facility] 2021-06-20 2021-06-20 OFFICE STLMLC STLMLC [id number] Co mmon 00:00:00 00:00:00 VISIT [facility] EST[facility] PT - CHI LEVEL 4 [facility] 2021-05-22 2021-05-22 OFFICE STLMLC STLMLC [id number] Co m[place] 00:00:00 00:00:00 VISIT [facility] ESTAB PT - CHI LEVEL 4 [facility] 2021-04-18 2021-04-18 OFFICE STLMLC STLMLC [id number] [place] m[place] 00:00:00 00:00:00 VISIT [facility] ESTAB PT - CHI LEVEL 4 [facility] 2021-03-13 2021-03-13 OFFICE STLMLC STLMLC [id number] Co mmon 00:00:00 00:00:00 VISIT [facility] ESTAB PT - CHI LEVEL 4 [facility] 2021-03-13 2021-03-13 SUB ANNUAL STLMLC STLMLC [id number] Common 00:00:00 00:00:00 MCR [facility] WELLNESS - CHI VISIT [facility] 2021-03-05 2021-03-05 Outpatient DMG DMG [id number] 021 [facility] 11:01:00 11:01:00 1018 [facility] l [facility] 2021-03-05 2021-03-05 Outpatient MART, SINGH [facility] [id number] 9759 [place] 00:00:00 00:00:[address] 2021-03-05 2021-03-05 Outpatient MART, SINGH [facility] [id number] 6243 [place] 00:00:00 00:00:[address] 2021-03-05 2021-03-05 Outpatient [facility] [id number] [place] 00:00:00 00:00:[address] 2021-02-03 2021-02-10 Inpatient [facility] 064 [id number] 83 [place] 00:00:00 00:00:00 VALE [address] 2021-01-30 2021-01-31 Outpatient SINGH CEVALLOS [facility] [id number] 0360 [place] 00:00:00 00:00:[address] 2021-01-30 2021-01-30 Outpatient SINGH CEVALLOS [facility] [id number] 8126 [place] 00:00:00 00:00:[address] 2021-01-30 2021-01-30 Outpatient SINGH CEVALLOS [facility] [id number] 7956 [place] 00:00:00 00:00:[address] Results Test Description Test Time Test Comments Results Result Comments Source POC glucose 2022-01-05 17:15:00 Test Item Value Reference Range Interpretation Comme nts POC glucose (test code = 155 mg/dL 65-99 H Ope rator Name: Dot Alba 99642-2) ID: [id number] hartable: RN Notified Lab Interpretation (test code = Abnormal 40535-0) [facility] 1 [id number] 06:11:00 Test Item Value Reference Range Interpretation Comments Product name (test code Red Blood Cells -1, = 25) Leukored Unit number (test code [id number] = 5294626) Product code (test code Z7395I10 = 3092) Dispense status (test Transfused code = 24) Blood expiration date (test code = 302) Blood type code (test 5100 code = 308) Blood type (test code = O POSITIVE 1314) Compatibility (test Compatible code = 6400) [facility], [id number] 19:31:00 Test Item Value Reference Range Interpretation Comments Ionized calcium, arterial (test 1.26 mmol/L 1.11-1.32 code = 87129-0) [facility], [id number] 19:31:00 Test Item Value Reference Range Interpretation Comments Potassium, syringe (test 3.3 See_Comment L [A utomated message] code = 2007) The system [employer] generated this result transmitted ref erence range: 3.5 - 5. 0 mEq/L. The refe rence range was not u sed to interpret this result as normal/abnor mal. Lab Interpretation (test Abnormal code = 95469-7) [facility], [id number] 19:31:00 Test Item Value Reference Range Interpretation Comments Sodium, syringe (test 141 See_Comment [Auto mated message] The code = 2947-0) system which generated this result tra nsmitted reference range : 125 - 148 mEq/L. The refe rence range was not used to interpret this result as normal/abnormal . [facility] gas, [id number] 19:31:00 Test Item Value Reference Range Interpretation Comments pH, arterial (test code 7.32 7.35-7.45 L = 2744-1) pCO2, arterial (test 37 See_Comment [Autom ated message] code = 2019-8) The system ich generated this result transmitted ref erence range: 35 - 45 mmHg. The reference r carole was not used to interpret this result as normal/abnor mal. pO2, arterial (test code 269 See_Comment H [A utomated message] = 2703-7) The system [employer] h generated this result transmitted ref erence range: 80 - 90 mmHg. The reference r carole was not used to interpret this result as normal/abnor mal. Temperature, Celsius 36.9 Degrees C (test code = 8310-5) O2 saturation, arterial 99 % 95-100 (test code = 2708-6) pH, arterial corrected 7.32 (test code = 79588-8) pCO2, arterial corrected 37 mmHg (test code = 47458-4) pO2, arterial corrected 269 mmHg (test code = 58487-3) Base excess, arterial -6 See_Comment L [Auto mated message] (test code = 1925-7) The [facility] tem which generated this result transmitted ref erence range: -2 - 2 m Eq/L. The reference r carole was not used to interpret this result as normal/abnor mal. Lab Interpretation (test Abnormal code = 39480-1) [facility], [id number] 19:31:00 Test Item Value Reference Range Interpretation Comments Glucose, syringe (test code = 93 mg/dL 65-99 2345-7) [facility]em[facility], [id number] 19:31:00 Test Item Value Reference Range Interpretation Comments Hemoglobin, syringe (test code = 8.4 g/dL 12.0-16.0 L 718-7) Lab Interpretation (test code = Abnormal 68887-1) [facility] clotting [id number] 19:17:00 Test Item Value Reference Range Interpretation Comments Activated clotting time 243 See_Comment H Oper ator Name: Alberta (test code = 5298) Lara e ID: [id number] [Autom ated message] The sy stem which generated this result transmit rené reference range : 96 - 152 sec. The reference range was not used to int erpret this result as normal/abnormal . Lab Interpretation (test Abnormal code = 86301-5) [facility] 12 [id number] 18:55:31 Test Item Value Reference Range Interpretation Comments Ventricular rate (test 72 code = 253) Atrial rate (test code 72 = 255) RI interval (test code 134 = 266) QRSD interval (test 80 code = 260) QT interval (test code 396 = 264) QTC interval (test code 433 = 265) P axis 1 (test code = 40 267) QRS axis 1 (test code = 15 268) T wave axis (test code 19 = 270) EKG impression (test Normal sinus code = 273) rhythm-Normal ECG-In automated comparison with ECG of 08-FEB-2021 16:46,-No significant change was found- [facility] ([facility]OVID-19) RNA [Presence] in Respiratory specimen by VINH with probe [id number] 01:05:14 Test Item Value Reference Range Interpretation Comments SARS-CoV-2 (COVID-19) RNA Not detected [Presence] in Respiratory specimen by VINH with probe detection (test code = 29470-6) Whether patient is employed in a Unknown healthcare setting (test code = 66967-4) Whether the patient has symptoms Unknown related to condition of interest (test code = 52646-3) Whether the patient was Unknown hospitalized for condition of interest (test code = 58538-8) Whether the patient was admitted Unknown to intensive care unit (ICU) for condition of interest (test code = 42322-3) Whether patient resides in a Unknown congregate care setting (test code = 24795-9) status (test code = Unknown 23345-4) Date and time of symptom onset Unknown (test code = 60743-6) [facility] [id number] 12:13:00 Test Item Value Reference Range Interpretation Comments AFB culture No growth after Specimen isolate (test 6 weeks of InformationSpe cimen code = 543-9) incubation. Source: Tissue Specimen Site: Foot: Lef t Second toe culture OSVALDO (test code NO TISSUE SEEN = OSVALDO) IN SAMPLE RECEIVED [facility] [id number] 12:15:00 Test Item Value Reference Range Interpretation Comments Fungus culture No growth after Specimen isolate (test 4 weeks of Informatione cimen code = 580-1) incubation. Source: Tissue Specimen Site: Foot: Lef t Second toe culture OSVALDO (test code NO TISSUE SEEN = OSVALDO) IN SAMPLE RECEIVED [facility] [id number] 12:50:00 Test Item Value Reference Range Interpretation Comments Anaerobic No anaerobic Specimen culture isolate organisms InformationS pecimen (test code = isolated. Source: TissueS pecimen 17877-2) Site: Foot: Lef t Second toe culture OSVALDO (test code NO TISSUE SEEN = OSVALDO) IN SAMPLE RECEIVED [facility] [id number] 11:00:00 Test Item Value Reference Range Interpretation Comments Aerobic No growth after Specimen culture 3 days. InformationSpec imen isolate (test Source: Tissue Specimen code = Site: Foot: Lef t Second 43785-4) toe culture OSVALDO (test code NO TISSUE SEEN = OSVALDO) IN SAMPLE RECEIVED [facility] [id number] 19:57:33 Test Item Value Reference Range Interpretation Comments Case number (test code = [id number]) Surgical pathology See link below for report (test code = PDF Lab Report 1403) Result status (test code This is Final Report = [id number]) for [id number] [facility] [id number] 15:57:00 Test Item Value Reference Range Interpretation Comments Fungus smear No fungi Specimen (test code = observed. InformationSpec imen 1443) Source: TissueS pecimen Site: Foot: Lef t Second toe culture OSVALDO (test NO TISSUE SEEN code = OSVALDO) [facility] [id number] 13:14:00 Test Item Value Reference Range Interpretation Comments AFB stain No acid fast Specimen (test code = bacilli (AFB) InformationSpe taylaen 676-7) seen. Source: TissueS pecimen Site: Foot: Lef t Second toe culture OSVALDO (test NO TISSUE SEEN code = OSVALDO) IN SAMPLE RECEIVED [facility] [id number] 12:02:00 Test Item Value Reference Range Interpretation Comments Gram stain No WBC's or Specimen isolate (test organisms seen. Information Specimen code = 1469) Source: TissueS pecimen Site: Foot: Lef t Second toe culture OSVALDO (test code NO TISSUE SEEN = OSVALDO) IN SAMPLE RECEIVED [facility]an[facility]ocardi[facility] Complete, (w Contrast, Strain and 3D if needed)2021-09-09 00:56:29 Test Item Value Reference Range Interpretation Comments Ao Root Diameter 2.63 cm (test code = 5647271602) AoV Area, Vmax (test 1.92 cm2 code = 6373984521) AoV Area, VTI (test 2.12 cm2 code = 5061610105) AoV Mean PG (test 6.98 mmHg code = 1003048339) AoV Peak PG (test 14.11 mmHg code = 6890544590) AoV Vmax (test code = 1.88 m/s 5272124996) AoV VTI (test code = 0.38 m 5207847647) IVS,d (test code = 0.82 cm 0.6-0.9 0330754632) IVS/LVPW,2D (test 1.02 code = 2883706751) Left Atrium Dimension 3.93 cm Anterior (test code = 0388904726) LV,d (test code = 4.38 cm 1832854459) LV EF,2D (test code = 77.17 % 3099093359) LV,s (test code = 2.68 cm 3722059718) LVOT area (test code 2.86 cm2 = 4116351808) LVOT Diam,S (test 1.91 cm code = 6812432131) LVOT Vmax (test code 1.26 m/s = 2557992964) LVOT VTI (test code = 0.28 m 8837671113) LVPWD,d (test code = 0.80 cm 0.6-0.9 5219393177) PV Pk Grad (test code 3.87 mmHg = 4018509825) PV VMAX (test code = 0.98 m/s 1475809836) RVOT Vmax (test code 0.71 m/s = 5802987049) RVSP (TR) (test code 52.25 mmHg = 4477743970) TR Vpeak (test code = 4.96 mm/s 4741634060) MV E A ratio (test 1.14 code = 9391159607) RA pressure (test 10.00 mmHg code = 4062759492) TR pk grad (test code 42.25 mmHg = 9743539412) MR Vmax (test code = 5.00 m/s 8754914795) E wave decelartion 199.14 msec time (test code = 9255465193) MV Peak A Tate (test 1.02 m/s code = 8074270945) MV valve area p 1/2 3.81 cm2 method (test code = 5006962411) MV Peak E Tate (test 1.17 m/s code = 4434067601) MV stenosis pressure 57.75 ms 1/2 time (test code = 3984242906) LVOT stroke volume 0.80 ml (test code = 5513107925) AV LVOT peak gradient 6.33 mmHg (test code = 1818846940) Ascending aorta (test 2.71 cm code = 1307621531) RVSP (test code = 52.25 mmHg 0788070617) Ao Root Diameter 2.63 cm (test code = 5355509681) MV mean gradient 2.70 mmHg (test code = 1607974546) LV SYS VOL (test code 26.47 ml 14-42 = 0737335402) LV WILSON VOL (test 86.82 ml 46-106 code = 6269818770) LA area s A4C (test 16.93 cm2 code = 7259749672) LV SV Teich 2D (test 60.35 ml code = 1477013983) LV Vol s Teich PSAX 26.47 ml (test code = 8930059530) MR peak grad (test 7.79 mmHg code = 4134225896) MV Vmax (test code = 1.40 m 1738218998) MV VTI Tips (test 0.41 m code = 4735950116) RVOT pk grad (test 2.04 mmHg code = 3469999536) AoV Vmn (test code = 1.24 m/s 0287319306) LV FS Teich 2D (test 38.88 code = 5563510694) MV AE ratio (test 0.87 code = 9508444320) LV FS Cube 2D (test 38.88 code = 6352353812) LVOT Vmn (test code = 0.74 4199978506) Aov area Vmn (test 1.72 cm2 code = 4063656640) LVOT mean grad (test 2.75 mmHg code = 8963619610) MAX Pred HR (test 151.21 code = 1548426404) 85 of MPHR (test code 128.53 = 9751819639) Calc MPHR (test code 151.21 bpm = 3879935454) LV SV Cube 2D (test 64.91 ml code = 9362318327) LV vol d cube 2D 84.11 ml (test code = 0447734413) LV vol s cube 2D 19.20 ml (test code = 8746845775) MV Decel slope (test 5.88 m/s2 code = 9901699471) Pred Exer Dur R1 6.95 (test code = 5877301274) Pred METS R1 (test 5.76 code = 6090374953) LA Vol MOD A4C (test 43.61 ml code = 6847115589) E sylvia sept (test 0.12 code = 0348573642) E prime lat (test 0.16 code = 1657938604) Velocity Ratio 0.67 m/s (V1/V2) (test code = 4689) EF (test code = 70 % 1943094926) E/A ratio (test code 1.15 = 0706014061) LVOT VTI (CM) (test 28.00 cm code = 1684593985) OSVALDO (test code = OSVALDO) Left Ventricle: Normal wall motion. Normal systolic function with a visually estimated EF of 60 - 65%. Normal diastolic function. Aortic Valve structure is normal Mitral Valve structure is normal. Mild to moderate valvular regurgitation Tricuspid Valve. Valve structure is normal. Trace valvular regurgitation Pulmonic Valve. No significant valvular regurgitation Right ventricle size is normal. Normal systolic function Left VentricleLeft ventricle size is normal. Normal wall motion. Normal systolic function with a visually estimated EF of 60 - 65%. Normal diastolic function.Right VentricleRight ventricle size is normal. Normal systolic function.Left AtriumLeft atrium size is normal.Right AtriumRight atrium size is normal.Mitral ValveValve structure is normal. Mild to moderate valvular regurgitation.Tricuspid ValveValve structure is normal. Trace valvular regurgitation.Aortic ValveValve structure is normal. No significant valvular regurgitation. No stenosis.Pulmonic ValveNo significant valvular regurgitation.Pericardiu mNo significant pericardial effusion.Study DetailsStudy quality was adequate. A complete 2D, color flow Doppler and spectral Doppler echocardiogram was performed.The apical, parasternal, subcostal and suprasternal views were obtained. Patient exhibited sinus rhythm. [facility], with reflex to culture 2021-09-05 18:56:00 Test Item Value Reference Range Interpretation Comments Specimen site (test Catheterized code = 4194827) Color, UA (test code Yellow = 5778-6) Appearance, UA (test Clear code = 5767-9) Specific gravity, UA 1.011 1.001-1.030 (test code = 5811-5) pH, UA (test code = 6.0 5.0-9.0 5803-2) Protein, UA (test Negative Negative code = 64071-6) Glucose, UA (test Negative Negative code = 27368-2) Ketones, UA (test Negative Negative code = 2514-8) Bilirubin, UA (test Negative Negative code = 5770-3) Blood, UA (test code Negative Negative = 5794-3) Nitrite, UA (test Negative Negative code = 5802-4) Urobilinogen, UA <2.0 See_Comment [Automated message] (test code = The system Dis[employer] h 04057-1) generated this result transmitted ref erence range: <2.0 E.U ./dL. The reference r carole was not used to interpret this result as normal/abnor mal. Leukocyte esterase, Negative Negative UA (test code = 5799-2) Epithelial cells, UA <1 See_Comment [Autom ated message] (test code = 5787-7) The s tem which generated this result transmitted ref erence range: /HPF. Th e reference range was not used to int erpret this result as normal/abnormal . WBC, UA (test code = 1 See_Comment [Autom ated message] 5821-4) The system [employer] generated this result transmitted ref erence range: 0 - 4 /H PF. The reference r carole was not used to interpret this result as normal/abnor mal. RBC, UA (test code = 2 See_Comment [Autom ated message] 09862-1) The system [employer] generated this result transmitted ref erence range: 0 - 5 /H PF. The reference r carole was not used to interpret this result as normal/abnor mal. Bacteria, UA (test Few None seen code = 45890-2) Yeast, UA (test code None seen = 49461-5) Yeast with None seen pseudohyphae, UA (test code = 51280-6) [facility] [id number] 18:56:00 Test Item Value Reference Range Interpretation Comments Urine culture (test SEE COMMENT Bacteriu shelton screen code = 0047143) negative. [facility] [id number] 17:35:01 Test Item Value Reference Range Interpretation Comments POC sodium (test code = 145 mmol/L 977-501 0737-0) POC potassium (test 3.6 mmol/L 3.5-5.0 code = 6298-4) POC glucose (test code 87 mg/dL 65-99 = 2339-0) POC creatinine (test 0.8 mg/dl 0.5-0.9 Operato r Name: Marcio code = 77039-1) AileenDevice ID: [id number] POC hemoglobin (test 7.8 g/dL 12.0-16.0 L code = 718-7) POC hematocrit (test 23 % 37-47 L code = 4544-3) Lab Interpretation Abnormal (test code = 53197-5) [facility] [Presence] in Respiratory specimen by VINH with probe [id number] 05:00:28 Test Item Value Reference Range Interpretation Comments SARS-CoV-2 (COVID-19) RNA Not detected [Presence] in Respiratory specimen by VINH with probe detection (test code = 10911-1) Whether patient is employed in a Unknown healthcare setting (test code = 04714-8) Whether the patient has symptoms Unknown related to condition of interest (test code = 57412-3) Whether the patient was Unknown hospitalized for condition of interest (test code = 57369-5) Whether the patient was admitted Unknown to intensive care unit (ICU) for condition of interest (test code = 71712-1) Whether patient resides in a Unknown congregate care setting (test code = 14153-5) status (test code = Unknown 84829-3) Date and time of symptom onset Unknown (test code = 03064-6) [facility]-CoV-2 (COVID-19) RNA [Presence] in Respiratory specimen by VINH with probe [id number] 11:16:10 Test Item Value Reference Range Interpretation Comments SARS-CoV-2 (COVID-19) RNA Not detected [Presence] in Respiratory specimen by VINH with probe detection (test code = 58341-2) Whether patient is employed in a Unknown healthcare setting (test code = 85953-9) Whether the patient has symptoms Unknown related to condition of interest (test code = 84931-0) Whether the patient was Unknown hospitalized for condition of interest (test code = 94923-1) Whether the patient was admitted Unknown to intensive care unit (ICU) for condition of interest (test code = 47090-8) Whether patient resides in a Unknown congregate care setting (test code = 96073-3) status (test code = Unknown 28540-4) Date and time of symptom onset Unknown (test code = 25826-7) [facility]-CoV-2 (COVID-19) RNA [Presence] in Respiratory specimen by VINH with probe [id number] 19:07:21 Test Item Value Reference Range Interpretation Comments SARS-CoV-2 (COVID-19) RNA Not detected Not-Detected [Presence] in Respiratory specimen by VINH with probe detection (test code = 21841-7) Whether patient is employed in a healthcare setting (test code = 20543-4) Whether the patient has symptoms related to condition of interest (test code = 20466-2) Patient was hospitalized because of this condition (test code = 61583-6) Whether the patient was admitted to intensive care unit (ICU) for condition of interest (test code = 33270-4) Whether patient resides in a congregate care setting (test code = 55818-9) [facility]
--- NOTE | 2022-07-05 22:11 | RAD REPORT ---
EXAM DESCRIPTION: RAD - Foot Left 3 View - 07/05/2022 9:31 pm CLINICAL HISTORY: Left foot pain and redness COMPARISON: 08/02/2020 FINDINGS: No fracture, dislocation or periosteal reaction. No osseous destructive changes. Interval sequelae of amputation at the level of the second digit metatarsophalangeal joint. No air or foreign body in the soft tissues. 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 No ra diographic findings to suggest acute osteomyelitis.
--- NOTE | 2022-07-05 22:37 | RAD REPORT ---
EXAM DESCRIPTION: US - Extremity Venous Uni Ltd - 07/05/2022 9:59 pm CLINICAL HISTORY: Foot pain COMPARISON: None. TECHNIQUE: Real-time sonographic evaluation of the left lower extremity deep venous systems was perf ormed. FINDINGS: Normal compressibility, flow augmentation, phasic flow and spontaneous flow is identified in the left lower extremity deep venous systems. No intraluminal filling defects seen. IMPRESSION: No evidence of left lower extremity deep venous thrombosis.
--- NOTE | 2022-07-05 22:51 | RAD REPORT ---
EXAM DESCRIPTION: US - Lower Extremity Artery Uni Ltd - 07/05/2022 9:59 pm CLINICAL HISTORY: PAIN COMPARISON: Lower Extremity Artery Uni Ltd dated 12/29/2021; Extremity Venous Uni Ltd dated 07/05/2022 TECHNIQUE: Left lower extremity arterial Doppler examination was performed with waveform tracing. FINDINGS: Monophasic waveforms are seen along the left common femoral artery with a degree of spectral broadeni ng. Evaluation of Some segments of the common femoral artery is technically limited given vessel orie ntation. Monophasic waveforms are seen along the proximal to mid SFA, with blunted diastolic flow. Markedly diminished flow along the distal SFA, concerning for severe stenosis or near occlusion. The popliteal artery stent segment remains patent, although with monophasic waveform, slow flow, and dampened upstroke. Similar findings along the posterior tibial artery and dorsalis pedis artery IMPRESSION: Markedly diminished flow along the distal SFA segment, concerning for severe stenosis or near occlusion. Maintained distal flow to trace, although with monophasic waveform and slow upstroke. Monophasic waveforms along the left common femoral, and proximal to mid superficial femoral artery, c oncerning for proximal stenosis. The findings were communicated to Julio C Ghislaine on 07/05/2022 at 22:47 hours.
[2022-07-05 23:03] LABS: Absolute Lymphocytes (CBC) 2.7 K/uL (0.7-4.9); Lymphocytes % 30.1 % (15.3-44.8); MCV 87.9 fL (80-100); MPV 7.5 fL (7.6-11.3); RBC Red Blood Cell Count 3.99 M/uL (3.86-4.86)
[2022-07-05 23:05] LABS: Protime INR 0.99
[2022-07-05 23:16] LABS: Potassium 3.4 mmol/L (3.5-5.1)
[2022-07-05] MEDS ORDERED: FENTANYL CITR 100 MCG/2 ML ONE (23:37)
[2022-07-05] MEDS ORDERED: NA CHLORIDE 0.9% 500 ML ONE (23:38)
[2022-07-06] MEDS ORDERED: HEPARIN 5000 UNIT/ML 1 ML VIAL ONE (00:04)
[2022-07-06] MEDS ORDERED: HEPARIN/D5W 25,000 UNIT/500 ML BAG IV ONE (00:05)
--- NOTE | 2022-07-06 00:07 | EDPHYS ---
Physician Documentation [facility] Name: Rian Merlos Age: 71 yrs Sex: Female : 1950 Arrival Date: 07/05/2022 Time: 20:22 Bed 13 Private MD: ED Physician Shaista Sharif HPI: 07/05 21:00 This 71 yrs old Female presents to ER via Wheelchair with complaints of Leg Pain, Foot cp Pain. 21:00 The patient presents with pain, tenderness. The complaints affect the left foot. cp Context: the patient is not able to bear weight, the patient is able to ambulate, with severe difficulty. Onset: The symptoms/episode began/occurred 2 month(s) ago, and became worse yesterday. Associated signs and symptoms: The patient has no apparent associated signs or symptoms. Patient is a smoker who reports history of PAD with multiple stents placed in lower extremities and having left second toe amputated last year at [facility] in [facility]. Patient presents to ED with c/o worsening pain to left foot that caused her not to be able to sleep last night. Denies injury. Historical: - Allergies: 20:35 Morphine; pf1 - Immunization history:: Client reports receiving the 2nd dose of the Covid vaccine. - Social history:: Smoking status: Patient reports the use of cigarette tobacco products. ROS: 21:05 Constitutional: Negative for body aches, chills, fever, poor PO intake. cp 21:05 Eyes: Negative for injury, pain, redness, and discharge. cp 21:05 ENT: Negative for ear pain, sore throat, difficulty swallowing, difficulty handling secretions. 21:05 Cardiovascular: Negative for chest pain, edema, palpitations. 21:05 Respiratory: Negative for cough, shortness of breath, wheezing. 21:05 Abdomen/GI: Negative for abdominal pain, nausea, vomiting, and diarrhea. 21:05 Back: Negative for pain at rest, pain with movement. 21:05 MS/extremity: Positive for pain, tenderness, of the left foot, toe discoloration. 21:05 Neuro: Negative for altered mental status, dizziness, headache, weakness. 21:05 All other systems are negative. Exam: 21:10 Constitutional: The patient appears in no acute distress, alert, awake, cp non-diaphoretic, non-toxic, well developed, well nourished, uncomfortable. 21:10 Head/Face: Normocephalic, atraumatic. cp 21:10 Eyes: Periorbital structures: appear normal, Conjunctiva: normal, no exudate, no injection, Sclera: no appreciated abnormality, Lids and lashes: appear normal, bilaterally. 21:10 ENT: External ear(s): are unremarkable, Nose: is normal, Mouth: Lips: moist, Oral mucosa: moist, Posterior pharynx: Airway: no evidence of obstruction, patent. 21:10 Chest/axilla: Inspection: normal. 21:10 Cardiovascular: Rate: normal, Rhythm: regular, Edema: is not appreciated, JVD: is not appreciated. 21:10 Respiratory: the patient does not display signs of respiratory distress, Respirations: normal, no use of accessory muscles, no retractions, labored breathing, is not present, Breath sounds: decreased breath sounds, that are mild, diffuse. 21:10 Abdomen/GI: Inspection: abdomen appears normal, Palpation: abdomen is soft and non-tender, in all quadrants. 21:10 Back: pain, is absent, ROM is normal. 21:10 Musculoskeletal/extremity: Extremities: noted in the left foot: amputated second toe with surgical wound appearing well healed, toes dusky colored with marked tenderness to palpation, dorsalis pedis pulse markedly diminished, skin cool/dry, no open opens noted to left foot. Vital Signs: 20:31 BP 141 / 76; Pulse 76; Resp 16; Temp 98.2; Pulse Ox 100% ; Weight 48.53 kg; Height 5 pf1 ft. 3 in. (160.02 cm); Pain 10/10; 23:40 BP 129 / 63; Pulse 71; Resp 17; Temp 98.2(O); Pulse Ox 100% ; ke1 20:31 Body Mass Index 18.95 (48.53 kg, 160.02 cm) pf1 MDM: 20:34 Patient medically screened. cp 21:00 Differential diagnosis: dislocation, closed fracture, contusion, cellulitis, DVT, cp arterial occlusion. 07/06 00:00 Data reviewed: vital signs, nurses notes, lab test result(s), radiologic studies, plain cp films, ultrasound, I have discussed the patient's presentation/case with the attending Emergency Department Physician; and as a result, I will transfer patient. 00:00 I considered the following discharge prescriptions or medication management in the cp emergency department Medications were administered in the Emergency Department. See MAR. Test considered but Not performed: CT: angio left lower extremity. Care significantly affected by the following Social Determinants of Health: tobacco use. Counseling: I had a detailed discussion with the patient and/or guardian regarding: the historical points, exam findings, and any diagnostic results supporting the discharge/admit diagnosis, lab results, radiology results, the need to transfer to another facility, [facility] does not immediately have the required specialist. Response to treatment: the patient's symptoms have mildly improved after treatment. 00:12 ED course: discussed results of US with vascular \T[facility] in [facility] who cp will accept patient. 07/05 20:35 Order name: CBC with Diff; Complete Time: 23:25 07/05 20:35 Order name: BMP; Complete Time: 23:25 07/05 20:35 Order name: PT-INR; Complete Time: 23:25 07/05 23:40 Order name: SARS RAPID; Complete Time: 01:52 [facility] 07/06 01:52 Interpretation: Reviewed. 07/06 00:12 Order name: Lactate w/ 2H reflex if indic.; Complete Time: 01:52 07/06 01:52 Interpretation: Reviewed. 07/06 00:12 Order name: Blood Culture Adult (2) cp 07/05 20:35 Order name: US LE Artery Uni Ltd; Complete Time: 23:25 cp 07/05 20:35 Order name: US Extremity Venous Unilateral Ltd; Complete Time: 22:42 07/05 22:42 Interpretation: Report reviewed. 07/05 20:35 Order name: XRAY Foot LEFT 3 View; Complete Time: 22:42 07/05 20:35 Order name: IV; Complete Time: 23:39 cp Administered Medications: 07/05 23:38 Drug: fentaNYL (PF) 25 mcg Route: IVP; Site: left antecubital; [facility] 07/06 02:03 Follow up: Response: Pain is decreased [facility] 07/05 23:38 Drug: NS 0.9% 500 ml Route: IV; Rate: bolus; Site: left antecubital; ke1 07/06 00:06 Drug: Heparin (PR-Bolus No thrombolytic) - HEParin 60 units/kg {Co-Signature: pf1 ke1 (Laura coulter RN).} Route: IVP; Site: left antecubital; 00:13 Drug: Heparin (PR Drip) 12 units/kg/hr - (HEParin 31282 units, D5W 500 ml) ke1 {Co-Signature: pf1 (Laura coulter RN).} Route: IV; Rate: calculated rate; Site: left antecubital; 02:18 Drug: fentaNYL (PF) 25 mcg Route: IVP; Site: right forearm; ke1 02:18 Follow up: Response: Medication administered at discharge. 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
--- NOTE | 2022-07-06 00:07 | ER ---
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 Patient denies any injury. Patient stated had 2nd digit left foot amputation in December 2021. Patient stated has 7 stents placed to left leg. Coronavirus screen: Vaccine status: Patient reports receiving the 2nd dose of the covid vaccine. Client denies travel out of the [place] in the last 14 days. At this time, the client does not indicate any symptoms associated with coronavirus-19. Ebola Screen: Patient negative for fever greater than or equal to 101.5 degrees Fahrenheit, and additional compatible Ebola Virus Disease symptoms. Initial Sepsis Screen: Does the patient meet any 2 criteria? No. Patient's initial sepsis screen is negative. Does the patient have a suspected source of infection? No. Patient's initial sepsis screen is negative. Risk Assessment: Do you want to hurt yourself or someone else? Patient reports no desire to harm self or others. 20:31 Method Of Arrival: Wheelchair pf1 20:31 Acuity: GEOVANNA 3 pf1 07/06 00:54 Onset of symptoms was May 19, 2022. ke1 Triage Assessment: 07/05 23:00 General: Appears in no apparent distress. Behavior is appropriate for age. ke1 23:00 Pain: Complains of pain in L foot. ke1 Historical: - Allergies: 20:35 Morphine; pf1 - Immunization history:: Client reports receiving the 2nd dose of the Covid vaccine. - Social history:: Smoking status: Patient reports the use of cigarette tobacco products. Screenin:00 [facility] ED Fall Risk Assessment (Adult) History of falling in the last 3 months, ke1 including since admission No falls in past 3 months (0 pts). Abuse screen: Denies threats or abuse. Nutritional screening: No deficits noted. Tuberculosis screening: No symptoms or risk factors identified. Assessment: 23:00 Musculoskeletal: Amputation of left foot 2nd toe. Range of motion: intact in all ke1 extremities, Swelling present in left foot toes. 07/06 01:59 Reassessment: patient pulled out iv while moving[facility] 02:02 Reassessment: Patient is alert, oriented x 3, equal unlabored respirations, skin ke1 warm/dry/pink. Patient denies pain at this time. Vital Signs: 07/05 20:31 BP 141 / 76; Pulse 76; Resp 16; Temp 98.2; Pulse Ox 100% ; Weight 48.53 kg; Height 5 pf1 ft. 3 in. (160.02 cm); Pain 10/10; 23:40 BP 129 / 63; Pulse 71; Resp 17; Temp 98.2(O); Pulse Ox 100% ; ke1 20:31 Body Mass Index 18.95 (48.53 kg, 160.02 cm) pf1 ED Course: 20:22 Patient arrived in ED. mr 20:29 Julio C Scanlon PA is PHCP. cp 20:29 Shaista Sharif MD is Attending Physician. cp 20:35 Triage completed. pf1 21:32 Patient's name was called from ER lobby. No response. bb 21:33 XRAY Foot LEFT 3 View In Process Unspecified. EDMS 22:01 US LE Artery Uni Ltd In Process Unspecified. EDMS 22:01 US Extremity Venous Unilateral Ltd In Process Unspecified. EDMS 22:26 Colby Vázquez RN is Primary Nurse. ke1 23:00 Arm band placed on. ke1 23:00 Patient has correct armband on for positive identification. ke1 23:30 Inserted saline lock: 20 gauge in left antecubital area, using aseptic technique. ke1 07/06 02:01 Inserted saline lock: 22 gauge in right forearm, using aseptic technique. ke1 02:02 No provider procedures requiring assistance completed. Patient transferred, IV remains ke1 in place. 02:08 Primary Nurse role handed off by Colby Vázquez, RADHA ke1 02:10 Colby Vázquez RN is Primary Nurse. ke1 Administered Medications: 07/05 23:38 Drug: fentaNYL (PF) 25 mcg Route: IVP; Site: left antecubital; ke1 07/06 02:03 Follow up: Response: Pain is decreased ke1 07/05 23:38 Drug: NS 0.9% 500 ml Route: IV; Rate: bolus; Site: left antecubital; ke1 07/06 00:06 Drug: Heparin (AR-Bolus No thrombolytic) - HEParin 60 units/kg {Co-Signature: pf1 ke1 (Laura coulter RN).} Route: IVP; Site: left antecubital; 00:13 Drug: Heparin (AR Drip) 12 units/kg/hr - (HEParin 55943 units, D5W 500 ml) ke1 {Co-Signature: pf1 (Laura coulter RN).} Route: IV; Rate: calculated rate; Site: left antecubital; :18 Drug: fentaNYL (PF) 25 mcg Route: IVP; Site: right forearm; ke 02:18 Follow up: Response: Medication administered at discharge. ke1 Medication: 02:02 VIS not applicable for this client. ke1 Outcome: 00:06 ER care complete, transfer ordered by MD. forte 02:02 Transferred by ground EMS ke1 02:02 Condition: good 02:02 Instructed on the need for transfer. 02:03 Patient left the ED. ke1 02:18 Patient left the ED. ke1 Signatures: Dispatcher [employer] Kathryn Young Brenda, RN Julio C Newton PA PA cp Ebrottie, Kouassi, RN RN ke1 Laura coulter RN RN pf1 Laura coulter RN pf1
[2022-07-06 00:10] LABS: SARS-CoV-2 Antigen Rapid Res Negative (Negative)
[2022-07-06] MEDS ORDERED: MORPHINE 4 MG/ML SYR ONE (02:12)
[2022-07-06] MEDS ORDERED: FENTANYL CITR 100 MCG/2 ML ONE (02:18)
[2022-07-06 02:44] VITALS: TEMP 98.2; O2SAT 100
[2022-07-06 02:45] VITALS: BP 129/63
== END 2022-07-06 02:18 | disposition short-term general hospital (02) ==
LOC: ER 20:18
DX: I74.3 Embolism and thrombosis of arteries of the lower extremities (principal); I70.90 Unspecified atherosclerosis; I73.9 Peripheral vascular disease, unspecified; Z20.822 Contact with and (suspected) exposure to COVID-19; Z72.0 Tobacco use; Z88.5 Allergy status to narcotic agent
CPT/HCPCS: 87040 ×2; 85025; 80048; 36415; 85610; 83605; 73630; 93926; 93971; 99285; 87811; J1644 ×2; J3010 ×2; J7040

== ENCOUNTER 2022-10-17 21:31 | Observation (INO) | payer MEDICARE ==
--- OUTSIDE RECORDS SUMMARY | 2022-10-17 21:39 | XMS REPORT | Continuity of Care Document ---
:1950 Author Organization [facility] t Address [address] [place] [address]. [address] [place] [address] Care Team Providers Name Role Phone Tristen Somers DO Primary Care Physician [phone] Tristen Somers Attending Clinician Unavailable Singh Cevallos MD Attending Clinician Azra Pastrana Attending Clinician Madalyn Cruz RN Attending Clinician Unavailable Stephania Flaherty MA Attending Clinician Unavailable Seymour GARCIA, Brody Attending Clinician Unavailable Camilo Terrazas MD Attending Clinician Deedee Gonzalez MD Attending Clinician Sally INMAN, Malathi Zaldivar Attending Clinician Tami INMAN, Demetri Blackburn Attending Clinician Jim INMAN, Merary Davison Attending Clinician [phone] Ivanna Kidd CRNA Attending Clinician Brandon Somers MD Attending Clinician Kimberly Simon DO Attending Clinician Kevin INMAN, Shane Attending Clinician Wyatt INMAN, Rigo Lux Attending Clinician Tejas INMAN, Arvin Steel Attending Clinician Saravanan INMAN, Karson Lozada Attending Clinician [phone] Osvaldo INMAN, Bala Packer Attending Clinician Marisol Cosby CRNA Attending Clinician Leeanna MALDONADO, Chavez Miller Attending Clinician [phone] Yahaira INMAN, Irwin Attending Clinician Ashley INMAN, Angeles Drake Attending Clinician Bridget Rosa DO Attending Clinician Anibal Jarvis Attending Clinician Tj BIRCH, Lola Florez Attending Clinician [phone] Nilton INMAN, Tanya Pickard Attending Clinician Santiago Franco MD Attending Clinician Anthony Holland CRNA Attending Clinician [phone] Victoriano GARCIA, Yue Attending Clinician Unavailable VALE BUSTAMANTE Attending Clinician Unavailable MD ANGELES RAMIREZ Attending Clinician Unavailable DEEDEE GONZALEZ Admitting Clinician Unavailable KIMBERLY SIMON Admitting Clinician Unavailable MD CAMILO TERRAZAS Admitting Clinician Unavailable ANGELES RAMIREZ Admitting Clinician Unavailable MD ANGELES RAMIREZ Admitting Clinician Unavailable Payers Payer Name Policy Type Policy Effective Date Expiration Date Sour ce Number FORMERLY [facility] [id number] 2021 (MEDICARE 00:00:00 REPLACEMENT HMO) [employer] MEDICARE [id number] 2021 [facility] MEDICARE NOVITAS [id number] [facility] MEDICARE NOVPENDING SALE TO [facility] [id number] [facility] MEDICARE C1 [id number] 2021 [facility] 00:00:00 [facility] MEDICARE NOVITAS [id number] [facility] [employer] MEDICARE C1 [id number] 2021 [facility] 00:[facility]:00 [facility] Problems Condition Condition Condition Status Onset Resolution Last Treating Co mments Source Name Details Category Date Date Treatment Clinician Date 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 left 2-18 st lower lower 00:00: Hospita extremity extremity 00 l Peripheral Peripheral Disease Active M ethodi artery artery 8-17 st disease disease 00:00: Hospita 00 l PVD PVD Disease Active Methodi (periphera (periphera 4-15 st l vascular l vascular 00:00: Ho spita disease) disease) 00 l [id number] 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 - [facility] [id number] Leukocytos Problem Co mmon is, Spirit unspecifie - CHI d type [facility] [id number] 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 - CHI paroxysmal anxiety] [facility] [id number] Stage 3a Problem Comm on chronic Spirit kidney - CHI disease [facility] [id number] Stented Problem Commo n coronary Spirit artery - [facility] [id number] Coronary Problem Comm on artery Spirit disease - [facility] involving [facility] coronary Medical artery of Center [place] heart with other form of angina pectoris [id number] Presence Problem Comm on of Spirit arterial - CH[facility] stent [facility] [id number] Generalize Problem Com mon d anxiety Spirit disorder - [facility] [id number] Essential Problem Comm on (primary) Spirit hypertensi - CHI on [facility] [id number] Acquired Problem Comm on absence of Spirit other left - CHI toe(s) [facility] Allergies, Adverse Reactions, Alerts Allergy Allergy Status Severity Reaction(s) Onset Inactive Treating Comm ents Source Name Type Date Date Clinician Morphine Propensi Active Itching Metho di ty to 01-30 st adverse 00:00: Hospita reaction 00 l s to drug morphine morphine Active Itching Commo n Spirit - [facility] Family History Family Member Diagnosis Comments Start Date Stop Date Source Natural brother Diabetes [facility] Natural father [facility]] Natural mother [facility] Other Circulation [facility] with Leg[facility] Other Diabetes [facility] Other Heart disease [facility] Other Hypertension [facility] spital Other Stroke [facility] Social History Social Habit Start Date Stop Date Quantity Comments Source History of Tobacco [facility] - Use [facility] History of Social 2022-07-12 2022-07-[address] function 00:00:00 00:00:00 Hospital Alcohol intake 2022-07-10 2022-07-10 Ex-drinker [facility] 00:00:00 00:00:00 (finding) Hospital Tobacco use and 2022-01-02 2022-01-02 Smokeless [facility] exposure 00:00:00 00:00:00 tobacco non-user Hospital Tobacco Comment 2022-01-02 2022-01-02 On and Off [facility] 00:00:00 00:00:00 Hospital Sex Ass[birth year] At [birth year] [facility] 00:00:00 00:00:00 Hospital Smoking Status Start Date Stop Date Source Current Smoker 2022-04-19 00:00:00 [facility] Ex-smoker 2022-01-02 00:00:00 2022-01-02 00:00:00 [facility] Never Smoker [facility] Medications Ordered Filled Start Stop Current Ordering Indication Dosage Frequency Signature Comments Components Source Medication Medication Date Date Medication? Clinician (SIG) Name Name rivaroxaban 2022-0 Yes 10mg QD Take 1 Meth jerica (Xarelto) 4-07 tablet (10 st 10 mg 00:00: mg total) Hospita tablet 00 by mouth l daily. clonazePAM clonazePAM 2022-0 No clonazePAM 0.5 MG 0.5 MG 4-05 0.5 MG 00:00: 00 clonazePAM clonazePAM 2022-0 No clonazePAM 0.5 MG 0.5 MG 4-05 0.5 MG 00:00: 00 ascorbic 3-0 Yes 100mg QD Take 1 Method i acid, 3-[address] vitamin C, 13:33: (100 mg [facility]osp [facility] (VITAMIN C) 41 total) by l 100 MG mouth tablet daily. cholecalcif 2022-0 Yes 1000U QD Take 1 Met hodi mao, 3- capsule st vitamin D3, 13:33: (1,000 [facility]osp [facility] 25 mcg 41 Units l (1,000 total) by unit) mouth capsule daily. amLODIPine 2022-0 Yes 10mg QD Take 1 Metho di (NORVASC) 3-27 tablet (10 st 10 mg 13:33: mg total) Hospita tablet 41 by mouth l daily. clonAZEPAM 2022-0 Yes .5mg Q24H Take 1 Metho di (KlonoPIN) 3-[address] 0.5 MG 13:33: (0.5 mg Hospita disintegrat 41 total) by l ing tablet mouth daily as needed for anxiety. atorvastati 2022-0 Yes 40mg QD Take 1 Meth jerica n (LIPITOR) 3-27 tablet (40 st 40 mg 13:33: mg total) Hospita tablet 41 by mouth l daily. pantoprazol 3-0 2023- No 40mg QD Take 1 Met hodi e 2-25 03-28 tablet (40 st (PROTONIX) 00:00: 04:59 mg total) H ospita 40 MG EC 00 :00 by mouth l tablet daily for 30 days. folic acid 2022-0 2022- No 1mg QD Take 1 Meth jerica (FOLVITE) 1 2-25 03-28 tablet (1 st MG tablet 00:00: 04:59 mg total) Ho spita 00 :00 by mouth l daily for 30 days. metoprolol 2022- No 50mg QD Take 50 mg Methodi succinate 07-[address] XL 19:54: 00:00 daily. Hospita (TOPROL-XL) 27 :00 l 50 mg 24 hr [place] [id number] 5mg Q6H Take 1 Metho di (ROXICODONE 07-12 tablet (5 st ) 5 MG 00:00: mg total) Hospit a immediate 00 by mouth l release every 6 tablet (six) hours as needed for moderate pain .acute pain, chronic pain. Max Daily Amount: 20 mg apixaban 2022- No 5mg Q.5D Take 1 Method i (ELIQUIS) 5 07-1207 tablet (5 st mg tablet 00:00: 00:00 mg total) Ho spita 00 :00 by mouth 2 l (two) times a day. lactulose 2022- No 20g Q.5D Take 30 mL M ethodi 20 gram/30 07-12 ([address] mL solution 00:00: 04:59 total) by Hospita 00 :00 mouth 2 l (two) times a day for 30 days. pregabalin 2022- No 75mg Q.[id number] Take 1 Method[facility] (LYRICA) 75 07-[id number] MG capsule 00:00: 04:59 3D (75 mg Hosp edgard 00 :00 total) by l mouth 3 (three) times a day for 30 days. valsartan 2022- No 80mg Q.5D Take 1 Metho di (DIOVAN) 80 07-12 tablet (80 s t MG tablet 00:00: 04:59 mg total) Ho spita 00 :00 by mouth l every 12 (twelve) hours for 30 days. acetaminoph 2022- No 1000mg Q.[id number] Take 2 Methodi en 07-[id number] (TYLENOL) 00:00: 04:59 3D (1,000 mg Ho spita 500 MG 00 :00 total) by l tablet mouth 3 (three) times a day for 30 days. carvediloL 0 2022- No 6.25mg Q.5D Take 1 Me thodi (COREG) 07-12- tablet st 6.25 MG 00:00: 04:59 (6.25 mg Hospi ta tablet 00 :00 total) by l mouth 2 (two) times a day for 30 days. cilostazoL 0 2022- No 50mg Q.5D Take 1 Meth jerica (PLETAL) 50 07-12- tablet (50 s t MG tablet 00:00: 04:59 mg total) Ho spita 00 :00 by mouth 2 l (two) times a day for 30 days. gabapentin 2022- No 600mg QD Take 600 M ethodi (NEURONTIN) 07-06 02-[address] 300 mg 04:18: 00:00 mouth Hospita capsule 19 :00 every l evening. 1 tablet qAM and 2 tablet qPM gabapentin 0 2022- No 300mg QD Take 300 M ethodi (NEURONTIN) 218 02-[address] 300 mg 04:18: 00:00 mouth Hospita capsule 13 :00 every l morning. 1 tablet qAM and 2 tablet qPM clonazePAM clonazePAM 2021-05 No clonazePAM 0.5 MG 0.5 MG 2-06 0.5 MG 00:00: 00 clonazePAM clonazePAM 2021-1 No clonazePAM 0.5 MG 0.5 MG 2-06 0.5 MG 00:00: 00 clonazePAM clonazePAM 2021-0 No clonazePAM 0.5 MG 0.5 MG 9-27 0.5 MG 00:00: 00 clonazePAM clonazePAM 2021-0 No clonazePAM 0.5 MG 0.5 MG 9-27 0.5 MG 00:00: 00 rivaroxaban 2021-0 Yes 2.5mg Q.5D Take 1 Met hodi (XARELTO) 01-[address] 2.5 mg 00:00: (2.5 mg Hospita tablet 00 total) by l tablet mouth 2 (two) times a day. Resume taking this medication on 01/17/2022 rivaroxaban 2021-0 2022- No 2.5mg Q.5D Take 1 Me thodi (XARELTO) 01-[address] 2.5 mg 00:00: 00:00 (2.5 mg Hospita tablet 00 :00 total) by l tablet mouth 2 (two) times a day. Resume taking this medication on 01/17/2022 pantoprazol 2021-0 2021- No 40mg QD Take 1 Met hodi e 01-11 tablet (40 st (PROTONIX) 00:00: 04:59 mg total) H ospita 40 MG EC 00 :00 by mouth l tablet daily for 30 days. pantoprazol 2021-0 2021- No 40mg QD Take 1 Met [...] 12 daily. l (1,000 unit) capsule gabapentin 0 Yes 300mg QD Take 300 Me thodi (NEURONTIN) 8-[address] 300 mg 17:14: mouth Hospita capsule 12 every l morning. 1 tablet qAM and 2 tablet qPM gabapentin 0 Yes 600mg QD Take 600 Me thodi (NEURONTIN) 8-[address] 300 mg 17:14: mouth Hospita capsule 12 every l evening. 1 tablet qAM and 2 tablet qPM amLODIPine 0 Yes 10mg QD Take 10 mg M ethodi (NORVASC) 8-[address] 10 mg 17:14: daily. Hospita tablet 12 l metoprolol 2021-0 Yes 50mg QD Take 50 mg M ethodi succinate 8-[address] XL 17:14: daily. Hospita (TOPROL-XL) 12 l 50 mg 24 hr tablet clonAZEPAM 0 Yes .5mg Q24H Take 1 Metho di (KlonoPIN) 8-[address] 0.5 MG 17:14: (0.5 mg Hospita disintegrat 12 total) by l ing tablet mouth daily as needed for seizures. atorvastati 2021-0 Yes 40mg QD Take 1 Meth jerica n (LIPITOR) 8-25 tablet (40 st 40 mg 17:14: mg total) Hospita tablet 12 by mouth l daily. rivaroxaban 2021-0 2021- No 2.5mg Q.5D Take 2.5 Methodi (XARELTO) 8-25 08-[address] 2.5 mg 11:53: 00:00 mouth 2 Hospita tablet 17 :00 (two) l tablet times a day. rivaroxaban 2021-0 2021- No 2.5mg Q.5D Take 2.5 [facility] (XARELTO) 8-25 08-[address] 2.5 mg 11:53: 00:00 mouth 2 Hospita tablet 17 :00 (two) l tablet times a day. [place]DROcodone 2021-2021- [place] [id number] 1{tbl} Q6H Take 1 Methodi -acetaminop 8-25 -[address]) 00:00: 04:59 mouth [facility]osp [facility] 5-325 mg 00 :00 every 6 l per tablet (six) hours as needed for moderate pain for up to 5 days .acute pain. Max Daily Amount: 4 tablets HYDROcodone 2021-0 2021- No [id number] 1{tbl} Q6H Take 1 Methodi -acetaminop 8-25 -[address]K) 00:00: 04:59 mouth Hosp edgard 5-325 mg [...] 7-26 0.5 MG 00:00: 00 clonazePAM clonazePAM 2022-0 No clonazePAM 0.5 MG 0.5 MG 7-26 [...] 2021-0 No clonazePAM 0.5 MG 0.5 MG 10-17 0.5 MG 00:00: 00 traMADol traMADol 2021-0 No 1{table traMADol HCl 50 MG HCl 50 MG 5-06 t_as_ne HCl 50 MG 00:00: eded} 00 traMADol traMADol 2021-0 No 1{table traMADol HCl 50 MG HCl 50 MG 5-06 t_as_ne HCl 50 MG 00:00: eded} 00 traMADol traMADol 2-0 No 1{table traMADol HCl 50 MG HCl 50 MG 5-06 t_as_ne HCl 50 MG 00:00: eded} 00 traMADol traMADol 2021-0 No 1{table traMADol [...] 50 MG 00:00: eded} 00 traMADol traMADol 0 No 1{table traMADol HCl 50 MG HCl 50 MG 5-06 t_as_ne HCl 50 MG 00:00: eded} 00 traMADol traMADol 0 No 1{table traMADol HCl 50 MG HCl 50 MG 5-06 t_as_ne HCl 50 MG 00:00: eded} 00 traMADol traMADol No 1{table traMADol HCl 50 MG HCl 50 MG 5-06 t_as_ne HCl 50 MG 00:00: eded} 00 clonazePAM clonazePAM No clonazePAM 0.5 MG 0.5 MG 5-03 0.5 MG 00:00: 00 clonazePAM clonazePAM No clonazePAM 0.5 MG 0.5 MG 5-03 0.5 MG 00:00: 00 traMADoL 2021-0 2021- No [id number] 50mg Q8H Take 1 Metho di (Ultram) 50 4-27 08-25 tablet (50 s t mg tablet 00:00: 00:00 mg total) Ho spita 00 :00 by mouth l every 8 (eight) hours as needed for severe pain for up to 5 days .acute pain. traMADoL 2021- No [id number] 50mg Q8H Take 1 Metho di (Ultram) 50 4-27 08-25 tablet (50 s t mg tablet 00:00: 00:00 mg total) Ho spita 00 :00 by mouth l every 8 (eight) hours as needed for severe pain for up to 5 days .acute pain. ferrous 2021- No 325mg Q.5D Take 1 Method i sulfate 325 -27 05-[address] (65 FE) MG 00:00: 04:59 (325 mg Hos kayla tablet 00 :00 total) by l mouth 2 (two) times a day with meals for 30 days. doxycycline 0 2021- No 100mg Q.5D Take 1 Me thodi (VIBRAMYCIN 4-27 05-[address] ) 100 MG 00:00: 04:59 (100 mg Hospi ta capsule 00 :00 total) by l mouth 2 (two) times a day for 7 days. clonazePAM clonazePAM 0 No 1{table QD clonazePAM 0.5 MG 0.5 MG 3-22 t_at_be 0.5 MG 00:00: dtime} 00 olmesartan- 2021-0 Yes 1{tbl} QD Take 1 Me thodi hydrochloro 2-[address] thiazide 00:00: mouth Hospita (BENICAR 00 daily. l HCT) 40-25 mg per tablet clonazePAM clonazePAM 2021-0 No 1{table QD 0.5 MG 0.5 MG 2-02 t_at_be 00:00: dtime} 00 clonazePAM clonazePAM 0 No 1{table QD clonazePAM 0.5 MG 0.5 MG 2-02 t_at_be 0.5 MG 00:00: dtime} 00 olmesartan- 2021-0 2023- No 1{tbl} QD Take 1 M ethodi hydrochloro 2-02 02-[address] thiazide 00:00: 00:00 mouth Hospita (BENICAR 00 :00 daily. l HCT) 40-25 mg per tablet clonazePAM clonazePAM 0 No 1{table QD 0.5 MG 0.5 MG [...] e_morni (XL) 150 00 ng} [place] [id number] 50mg Q6H Take 1 Metho di (Ultram) 50 02-15 04-27 tablet (50 s t mg tablet 00:00: 00:00 mg total) Ho spita 00 :00 by mouth l every 6 (six) hours as needed for moderate pain for up to 5 days .acute pain. buPROPion 0 Yes 100mg QD Take 100 Met hodi SR 9-[address] (WELLBUTRIN 00:00: mouth Hospi ta SR) 100 MG 00 every l 12 hr morning. tablet clopidogreL Yes 75mg QD Take 75 mg [facility] (PLAVIX) 75 - by mouth st mg tablet 00:00: daily. Hospit a 00 l clopidogreL Yes 75mg QD Take 1 Meth jerica (PLAVIX) 75 01-23 tablet (75 st mg tablet 00:00: mg total) Hos kayla 00 by mouth l daily. buPROPion 2022- No 100mg QD Take 1 Meth jerica SR 01-23 02-[address] (WELLBUTRIN 00:00: 00:00 (100 mg Ho spita SR) 100 MG 00 :00 total) by l 12 hr mouth tablet every morning. simvastatin 2021- No 20mg QD Take 20 mg [facility] (ZOCOR) 20 01-23- by mouth st mg tablet 00:00: 00:00 every Hospit a 00 :00 evening. l simvastatin 2021- No 20mg QD Take 20 mg [facility] (ZOCOR) 20 01-23- by mouth st mg tablet 00:00: 00:00 every Hospit a 00 :00 evening. l olmesartan- 2021- No 1{tbl} QD Take 1 M ethodi hydrochloro 8 04-[address] thiazide 00:00: 00:00 mouth Hospita (BENICAR 00 :00 daily. l HCT) 40-12.5 mg per tablet amLODIPine amLODIPine No 1{table QD amLODIPine Besylate [...] Xarelto MG MG t_with_ 2.5 MG food} amLODIPine amLODIPine No 1{table QD amLODIPine Besylate 10 Besylate 10 t} Besylate MG MG 10 MG Promethazin Promethazin No 1{table QD Promethazi e HCl 12.5 e HCl 12.5 t_as_ne ne HCl MG MG eded} 12.5 MG Atorvastati Atorvastati No 1{table QD Atorvastat n Calcium n Calcium t} in Calcium 40 MG 40 MG 40 MG Eliquis 5 Eliquis 5 No 1{table BID Eliquis 5 MG MG t} MG Olmesartan Olmesartan No 1{table QD Olmesartan Medoxomil-H Medoxomil-H t} Medoxomil- CTZ 40-25 CTZ 40-25 HCTZ 40-25 MG MG MG Clopidogrel Clopidogrel No 1{table QD Clopidogre Bisulfate Bisulfate t} l 75 MG 75 MG Bisulfate 75 MG Pregabalin Pregabalin No 1{capsu BID Pregabalin 75 MG 75 MG le} 75 MG Xarelto 10 Xarelto 10 No 1{table QD Xarelto 10 MG MG t} MG Carvedilol Carvedilol No 1{table BID Carvedilol 6.25 MG 6.25 MG t_with_ 6.25 MG food} Metoprolol Metoprolol No 1{table QD Metoprolol Succinate Succinate t} Succinate ER 50 MG ER 50 MG ER 50 MG Xarelto 2.5 Xarelto 2.5 No 1{table BID Xarelto MG MG t_with_ 2.5 MG food} amLODIPine amLODIPine No 1{table QD amLODIPine Besylate 10 Besylate 10 t} Besylate MG MG 10 MG Promethazin Promethazin No 1{table QD Promethazi e HCl 12.5 e HCl 12.5 t_as_ne ne HCl MG MG eded} 12.5 MG Atorvastati Atorvastati No 1{table QD Atorvastat n Calcium n Calcium t} in Calcium 40 MG 40 MG 40 MG Eliquis 5 Eliquis 5 No 1{table BID Eliquis 5 MG MG t} MG Olmesartan Olmesartan No 1{table QD Olmesartan Medoxomil-H Medoxomil-H t} Medoxomil- CTZ 40-25 CTZ 40-25 HCTZ 40-25 MG MG MG Clopidogrel Clopidogrel No 1{table QD Clopidogre Bisulfate Bisulfate t} l 75 MG 75 MG Bisulfate 75 MG Pregabalin Pregabalin No 1{capsu BID Pregabalin 75 MG 75 MG le} 75 MG Xarelto 10 Xarelto 10 No 1{table QD Xarelto 10 MG MG t} MG Carvedilol Carvedilol No 1{table BID Carvedilol 6.25 MG 6.25 MG t_with_ 6.25 MG food} Metoprolol Metoprolol No 1{table QD Metoprolol Succinate [...] 75 MG 75 MG Bisulfate 75 MG Immunizations Ordered Immunization Filled Immunization Date Status Commen ts Source Name Name FLUZONE HIGH DOSE FLUZONE HIGH DOSE 2022-02-12 Completed [facility] - OVER 65 OVER 65 15:07:00 [facility] FLUZONE HIGH DOSE FLUZONE HIGH DOSE 2022-02-12 Completed [facility] - OVER 65 OVER 65 15:07:00 [facility] FLUZONE HIGH DOSE FLUZONE HIGH DOSE 2022-02-12 Completed [facility] - OVER 65 OVER 65 15:07:00 [facility] FLUZONE HIGH DOSE FLUZONE HIGH DOSE 2022-02-12 Completed [facility] - OVER 65 OVER 65 15:07:00 [facility] FLUZONE HIGH DOSE FLUZONE HIGH DOSE 2022-02-12 Completed [facility] - OVER 65 OVER 65 15:07:00 [facility] FLUZONE HIGH DOSE FLUZONE HIGH DOSE 2022-02-12 Completed [facility] - OVER 65 OVER 65 15:07:00 [facility] FLUZONE HIGH DOSE FLUZONE HIGH DOSE 2022-02-12 Completed [facility] - OVER 65 OVER 65 15:07:00 [facility] FLUZONE HIGH DOSE FLUZONE HIGH DOSE 2022-02-12 Completed [facility] - OVER 65 OVER 65 15:07:00 [facility] FLUCELVAX QUAD PF 2021-02-[address] 00:00:00 Hospital FLUCELVAX QUAD PF 2021-02-[address] 00:00:00 Hospital FluAD FluAD 2021-02-09 Completed [facility] - 14:17:00 [facility] FluAD FluAD 2021-02-09 Completed [facility] - 14:17:00 [facility] FluAD FluAD 2021-02-09 Completed [facility] - 14:17:00 [facility] FluAD FluAD 2021-02-09 Completed [facility] - 14:17:00 [facility] FluAD FluAD 2021-02-09 Completed [facility] - 14:17:00 [facility] FluAD FluAD 2021-02-09 Completed [facility] - 14:17:00 [facility] FluAD FluAD 2021-02-09 Completed [facility] - 14:17:00 [facility] FluAD FluAD 2021-02-09 Completed [facility] - 14:17:00 [facility] FluAD FluAD 2021-02-09 Completed [facility] - 14:17:00 [facility] FluAD FluAD 2021-02-09 Completed [facility] - 14:17:00 [facility] FluAD FluAD 2021-02-09 Completed [facility] - 14:17:00 [facility] FluAD FluAD 2021-02-09 Completed [facility] - 14:17:00 [facility] FluAD FluAD 2021-02-09 Completed [facility] - 14:17:00 [facility] FluAD FluAD 2021-02-09 Completed [facility] - 14:17:00 [facility] FluAD FluAD 2021-02-09 Completed [facility] - 14:17:00 [facility] FluAD FluAD 2021-02-09 Completed [facility] - 14:17:00 [facility] FluAD FluAD 2021-02-09 Completed [facility] - 14:17:00 [facility] FluAD FluAD 2021-02-09 Completed [facility] - 14:17:00 [facility] FluAD FluAD 2021-02-09 Completed [facility] - 14:17:00 [facility] FluAD FluAD 2021-02-09 Completed [facility] - 14:17:00 [facility] FluAD FluAD 2021-02-09 Completed [facility] - 14:17:00 [facility] FluAD FluAD 2021-02-09 Completed [facility] - 14:17:00 [facility] FluAD FluAD 2021-02-09 Completed [facility] - 14:17:00 [facility] FluAD FluAD 2021-02-09 Completed [facility] - 14:17:00 [facility] FluAD FluAD 2021-02-09 Completed [facility] - 14:17:00 [facility] MODERNA COVID-19 2020-12-07 Completed [facility] MRNA VACCINATION 00:00:00 [facility] MODERNA COVID-19 2020-12-07 Completed [facility] t MRNA VACCINATION 00:00:00 [facility] MODERNA COVID-19 2020-11-03 Completed [facility] t MRNA VACCINATION 00:00:00 [facility] COVID-19 2020-11-03 Completed [facility] t MRNA VACCINATION 00:00:00 Hospital Vital Signs Vital Name Observation Time Observation Value Comments Source height 2022-06-25 15:20:00 63 [in_i] [facility] weight 2022-06-25 15:20:00 107.8 [lb_av] [facility] temperature 2022-06-25 15:20:00 96.7 [degF] [facility] bmi 2022-06-25 15:20:00 19.09 kg/m2 [facility] oximetry 2022-06-25 15:20:00 99 % [facility] respiratory rate 2022-06-25 15:20:00 18 /min Comm on [facility] blood pressure 2022-06-25 15:20:00 124 mm[Hg] [facility] - systolic [facility] blood pressure 2022-06-25 15:20:00 63 mm[Hg] [facility] - diastolic [facility] height 2022-06-25 15:40:00 63 [in_i] [facility] weight 2022-06-25 15:40:00 107.8 [lb_av] [facility] temperature 2022-06-25 15:40:00 96.7 [degF] Common S pirit [facility] bmi 2022-06-25 15:40:00 19.09 kg/m2 [facility] oximetry 2022-06-25 15:40:00 99 % Common [facility] respiratory rate 2022-06-25 15:40:00 18 /min Comm on [facility] blood pressure 2022-06-25 15:40:00 124 mm[Hg] Common [facility] - systolic [facility] blood pressure 2022-06-25 15:40:00 63 mm[Hg] [facility] - diastolic [facility] height 2022-04-23 15:00:00 63 [in_i] Common [facility] weight 2022-04-23 15:00:00 105.4 [lb_av] Common [facility] temperature 2022-04-23 15:00:00 97.3 [degF] Common [facility] bmi 2022-04-23 15:00:00 18.67 kg/m2 Common [facility] oximetry 2022-04-23 15:00:00 98 % Common [facility] respiratory rate 2022-04-23 15:00:00 18 /min Comm on [facility] blood pressure 2022-04-23 15:00:00 122 mm[Hg] Common [facility] - systolic [facility] blood pressure 2022-04-23 15:00:00 64 mm[Hg] Common [facility] - diastolic [facility] height 2022-02-12 14:50:00 63 [in_i] Common [facility] weight 2022-02-12 14:50:00 107.5 [lb_av] [facility] temperature 2022-02-12 14:50:00 97.2 [degF] Common [facility] bmi 2022-02-12 14:50:00 19.04 kg/m2 [facility] oximetry 2022-02-12 14:50:00 99 % Common [facility] respiratory rate 2022-02-12 14:50:00 18 /min Comm on [facility] blood pressure 2022-02-12 14:50:00 138 mm[Hg] [facility] - systolic [facility] blood pressure 2022-02-12 14:50:00 76 mm[Hg] [facility] - diastolic [facility] height 2021-12-11 14:50:00 63 [in_i] Common [facility] weight 2021-12-11 14:50:00 105 [lb_av] Common [facility]irit - [facility] temperature 2021-12-11 14:50:00 97.8 [degF] Common [facility] bmi 2021-12-11 14:50:00 18.6 kg/m2 [facility] oximetry 2021-12-11 14:50:00 98 % Common [facility] respiratory rate 2021-12-11 14:50:00 16 /min Comm on [facility] blood pressure 2021-12-11 14:50:00 121 mm[Hg] Common [facility] - systolic [facility] blood pressure 2021-12-11 14:50:00 65 mm[Hg] [facility] - diastolic [facility] height 2021-10-17 14:20:00 63 [in_i] Common [facility] weight 2021-10-17 14:20:00 107.8 [lb_av] [facility] temperature 2021-10-17 14:20:00 97.3 [degF] Common [facility] bmi 2021-10-17 14:20:00 19.09 kg/m2 Common [facility] oximetry 2021-10-17 14:20:00 99 % Common [facility] respiratory rate 2021-10-17 14:20:00 18 /min Comm on [facility] blood pressure 2021-10-17 14:20:00 137 mm[Hg] [facility] - systolic [facility] blood pressure 2021-10-17 14:20:00 76 mm[Hg] [facility] - diastolic [facility] height 2021-09-18 14:30:00 63 [in_i] [facility] weight 2021-09-18 14:30:00 104.3 [lb_av] Common [facility] temperature 2021-09-18 14:30:00 97.4 [degF] Common [facility] bmi 2021-09-18 14:30:00 18.47 kg/m2 Common [facility] oximetry 2021-09-18 14:30:00 98 % Common [facility] respiratory rate 2021-09-18 14:30:00 17 /min Comm on [facility] blood pressure 2021-09-18 14:30:00 139 mm[Hg] Common [facility] - systolic [facility] blood pressure 2021-09-18 14:30:00 78 mm[Hg] [facility] - diastolic [facility] height 2021-08-07 15:40:00 63 [in_i] Common [facility] weight 2021-08-07 15:40:00 107.8 [lb_av] [facility] temperature 2021-08-07 15:40:00 97.5 [degF] [facility] bmi 2021-08-07 15:40:00 19.09 kg/m2 [facility] oximetry 2021-08-07 15:40:00 99 % [facility] respiratory rate 2021-08-07 15:40:00 17 /min Comm on [facility] blood pressure 2021-08-07 15:40:00 132 mm[Hg] [facility] - systolic [facility] blood pressure 2021-08-07 15:40:00 77 mm[Hg] [facility] - diastolic [facility] height 2021-06-20 15:50:00 63 [in_i] Common [facility] weight 2021-06-20 15:50:00 108.4 [lb_av] [facility] temperature 2021-06-20 15:50:00 96.6 [degF] Common [facility] bmi 2021-06-20 15:50:00 19.2 kg/m2 [facility] oximetry 2021-06-20 15:50:00 100 % Common [facility] respiratory rate 2021-06-20 15:50:00 18 /min Comm on [facility] blood pressure 2021-06-20 15:50:00 138 mm[Hg] [facility] - systolic [facility] blood pressure 2021-06-20 15:50:00 76 mm[Hg] Common [facility] - diastolic [facility] height 2021-05-22 13:50:00 63 [in_i] Common [facility] weight 2021-05-22 13:50:00 108.7 [lb_av] Common [facility] temperature 2021-05-22 13:50:00 97.4 [degF] Common [facility] bmi 2021-05-22 13:50:00 19.25 kg/m2 [facility] oximetry 2021-05-22 13:50:00 98 % Common [facility] respiratory rate 2021-05-22 13:50:00 17 /min Comm on [facility] blood pressure 2021-05-22 13:50:00 139 mm[Hg] [facility] - systolic [facility] blood pressure 2021-05-22 13:50:00 78 mm[Hg] [facility] - diastolic [facility] height 2021-04-18 14:20:00 63 [in_i] [facility] weight 2021-04-18 14:20:00 107.6 [lb_av] Common [facility] temperature 2021-04-18 14:20:00 98.1 [degF] Common [facility] bmi 2021-04-18 14:20:00 19.06 kg/m2 [facility] oximetry 2021-04-18 14:20:00 98 % [facility] respiratory rate 2021-04-18 14:20:00 17 /min Comm on [facility] blood pressure 2021-04-18 14:20:00 133 mm[Hg] [facility] - systolic [facility] blood pressure 2021-04-18 14:20:00 72 mm[Hg] [facility] diastolic [facility] height 2021-03-13 15:10:00 63 [in_i] Common [facility] - [facility] weight 2021-03-13 15:10:00 108 [lb_av] Common [facility] - [facility] bmi 2021-03-13 15:10:00 19.13 kg/m2 Common [facility] - [facility] height 2021-03-13 15:10:00 63 [in_i] Common [facility] weight 2021-03-13 15:10:00 106.6 [lb_av] [facility] temperature 2021-03-13 15:10:00 97.0 [degF] [facility] S [facility] - [facility] bmi 2021-03-13 15:10:00 18.88 kg/m2 Common [facility] - [facility] oximetry 2021-03-13 15:10:00 98 % Common [facility] respiratory rate 2021-03-13 15:10:00 18 /min Comm on [facility] blood pressure 2021-03-13 15:10:00 138 mm[Hg] [facility] - systolic [facility] blood pressure 2021-03-13 15:10:00 70 mm[Hg] [facility] - diastolic [facility] height 2021-02-20 14:20:00 63 [in_i] Common [facility] - [facility] weight 2021-02-20 14:20:00 108.8 [lb_av] [facility] temperature 2021-02-20 14:20:00 97.3 [degF] Common [facility]irit - [facility] bmi 2021-02-20 14:20:00 19.27 kg/m2 Common [facility] oximetry 2021-02-20 14:20:00 96 % Common [facility]irit - [facility] respiratory rate 2021-02-20 14:20:00 17 /min Comm on [facility] blood pressure 2021-02-20 14:20:00 154 mm[Hg] [facility] - systolic [facility] blood pressure 2021-02-20 14:20:00 78 mm[Hg] [facility] - diastolic [facility] height 2021-01-23 13:30:00 63 [in_i] [facility] weight 2021-01-23 13:30:00 102.1 [lb_av] [facility] temperature 2021-01-23 13:30:00 97.0 [degF] [facility] bmi 2021-01-23 13:30:00 18.08 kg/m2 [facility] oximetry 2021-01-23 13:30:00 99 % [facility] respiratory rate 2021-01-23 13:30:00 16 /min Comm on [facility] blood pressure 2021-01-23 13:30:00 148 mm[Hg] [facility] systolic [facility] blood pressure 2021-01-23 13:30:00 78 mm[Hg] [facility] diastolic [facility] Systolic blood 2022-08-12 18:29:00 147 mm[Hg] [facility] pressure Diastolic blood 2022-08-12 18:29:00 71 mm[Hg] [facility] pressure Heart rate 2022-08-12 18:29:00 70 /min [facility] Body temperature 2022-08-12 18:29:00 36.39 Syeda [facility] Body height 2022-08-12 18:29:00 160 cm [facility] Body weight 2022-08-12 18:29:00 48.081 kg [facility] BMI 2022-08-12 18:29:00 18.78 kg/m2 [facility] Oxygen saturation in 2022-08-12 18:29:00 99 /min [facility] Arterial blood by Pulse oximetry Respiratory rate 2022-07-12 21:42:55 17 /min [facility] Oxygen saturation in 2022-01-10 14:34:00 96 /min [facility] Arterial blood by Pulse oximetry Systolic blood 2022-01-10 14:17:00 161 mm[Hg] Method ist [facility] pressure Diastolic blood 2022-01-10 14:17:00 69 mm[Hg] [facility] pressure Heart rate 2022-01-10 13:00:00 53 /[facility] Body temperature 2022-01-10 12:56:10 37.06 Syeda [facility] Respiratory rate 2022-01-10 12:56:10 18 /min [facility] Body weight 2022-01-10 10:39:00 51.574 kg [facility] BMI 2022-01-10 10:39:00 20.14 kg/m2 [facility] Body height 2022-01-04 16:20:00 160 cm [facility] Procedures Procedure Date / Time Performing Source Performed Clinician US DUPLEX ARTERIAL LOWER EXTREMITY 2022-08-07 Singh Cevallos LEFT 22:16:22 [facility] US ANKLE BRACHIAL INDEX 2022-08-07 Sinhg Cevallos t 22:16:22 Hospital BASIC METABOLIC PANEL 2022-07-12 Singh Cevallos Jainism 10:56:00 Hospital CBC WITH PLATELET AND DIFFERENTIAL 2022-07-12 Demetri Garrett 10:56:00 Hospital ESTIMATED GFR 2022-07-12 Singh Cevallos 10:56:00 Hospital FOLATE LEVEL 2022-07-11 Demetri Garrett Jainism 20:00:00 Hospital VITAMIN B12 LEVEL 2022-07-11 Demetri Garrett 20:00:00 Hospital CBC HEMOGRAM 2022-07-11 Singh Cevallos 12:03:00 Hospital BASIC METABOLIC PANEL 2022-07-11 Singh Cevallos Jainism 12:03:00 Hospital PARTIAL THROMBOPLASTIN TIME (PTT) 2022-07-11 Demetri Garrett 12:03:00 Hospital ESTIMATED GFR 2022-07-11 Singh Cevallos 12:03:00 [facility] ANTI XA, UNFRACTIONATED 2022-07-11 Demetri Garrett ist 04:30:00 Hospital PARTIAL THROMBOPLASTIN TIME (PTT) 2022-07-11 Singh Cevallos 04:30:00 Hospital OR FL < 1 HOUR 2022-07-10 Singh Cevallos 20:15:00 Hospital FL AN ELECTIVE SUPRAGLOTTIC AIRWAY 2022-07-10 Ivanna Kidd 18:04:00 Hospital LOWER EXTREMITY ANGIOGRAM,POSSIBLE 2022-07-10 Singh Cevallos ANGIOPLASTY,POSSIBLE STENT 17:51:00 Hospi darius CBC HEMOGRAM 2022-07-10 [facility], Demetri Tinoco 09:50:00 Hospital BASIC METABOLIC PANEL 2022-07-10 [facility], Demetri Blackburn Methodis t 09:50:00 Hospital ANTI XA, UNFRACTIONATED 2022-07-10 [facility], Demetri Blackburn Method ist 09:50:00 Hospital ESTIMATED GFR 2022-07-10 [facility], Demetri Villalobosist 09:50:00 Hospital CBC HEMOGRAM 2022-07-10 Singh Cevallos 08:21:00 [facility] BASIC METABOLIC PANEL 2022-07-10 Singh Cevallos 08:21:00 Hospital ANTI XA, UNFRACTIONATED 2022-07-10 Deedee Gonzalez t 08:21:00 [facility] ESTIMATED GFR 2022-07-10 [facility]:21[facility]00 Hospital ANTI XA, UNFRACTIONATED 2022-07-10 Deedee Gonzalezis t 01:25:00 [facility] ANTI XA, UNFRACTIONATED 2022-07-09 [facility], Demetri Blackburn Method ist 17:32:00 [facility] ECG 12-LEAD 2022-07-09 Kerri Escobedo 14:15:05 [facility] XR CHEST 1 VW PORTABLE 2022-07-09 Kerri Escobedo 12:34:36 [facility] ANTI XA, UNFRACTIONATED 2022-07-09 [facility] ist 10:09:00 Hospital CBC WITH PLATELET AND DIFFERENTIAL 2022-07-09 Josee English Jainism 10:09:00 [facility] PARTIAL THROMBOPLASTIN TIME (PTT) 2022-07-09 Adalberto English Jainism 10:09:00 [facility] PROTHROMBIN TIME WITH INR 2022-07-09 Mark English Met hodist 10:09:00 [facility] BASIC METABOLIC PANEL 2022-07-09 Singh Cevallos Jainism 10:09:00 Hospital ESTIMATED GFR 2022-07-09 [facility], Demetri Blackburn Jainism 10:09:00 Hospital TOTAL IRON BINDING CAPACITY 2022-07-09 [facility], Demetri Mina thodist 10:09:00 Hospital FERRITIN LEVEL 2022-07-09 [facility], Demetri Blackburn Jainism 10:09:00 Hospital TYPE AND SCREEN 2022-07-08 Alma Englishv Jainism 15:31:00 [facility] CBC HEMOGRAM 2022-07-08 [facility], Demetri Blackburn Jainism 08:15:00 Hospital ANTI XA, UNFRACTIONATED 2022-07-08 [facility], Demetri Blackburn Method ist 08:15:00 Hospital ANTI XA, UNFRACTIONATED 2022-07-08 [facility], Demetri Blackburn Method ist 01:57:00 Hospital ANTI XA, UNFRACTIONATED 2022-07-07 [facility], Demetri Blackburn Method ist 18:15:00 Hospital CBC HEMOGRAM 2022-07-07 [facility], Demetri Blackburn Jainism 11:51:00 Hospital ANTI XA, UNFRACTIONATED 2022-07-07 [facility], Demetri Blackburn Method ist 11:51:00 Hospital ANTI XA, UNFRACTIONATED 2022-07-07 [facility], Demetri Blackburn Method ist 03:41:00 Hospital ANTI XA, UNFRACTIONATED 2022-07-06 Deedee Gonzalez t 19:37:00 [facility] CT ANGIOGRAM ABDOMINAL AORTA AND 2022-07-06 Norma English hiv Jainism BILATERAL ILIOFEMORAL RUNOFF W WO 18:17:26 [facility] CONTRAST COVID-19 QUALITATIVE RT-PCR 2022-07-06 Deedee Gonzalez 10:46:00 [facility] CBC WITH PLATELET AND DIFFERENTIAL 2022-07-06 Deedee Gonzalez 10:46:00 [facility] COMPREHENSIVE METABOLIC PANEL 2022-07-06 Deedee Gonzalez thodist 10:46:00 [facility] PARTIAL THROMBOPLASTIN TIME (PTT) 2022-07-06 Deedee Gonzalez 10:46:00 [facility] PROTHROMBIN TIME WITH INR 2022-07-06 Deedee Gonzalez ist 10:46:00 [facility] ESTIMATED GFR 2022-07-06 Deedee Gonzalez 10:46:00 [facility] ANTI XA, UNFRACTIONATED 2022-07-06 Deedee Gonzalez t 10:46:00 [facility] CBC WITH PLATELET AND DIFFERENTIAL [facility]22[facility]01-10 [facility] BASIC METABOLIC PANEL 2022-01-10 [facility], Omad Jainism 09:07:00 Hospital ESTIMATED GFR 2022-01-10 [facility], Omad Jainism 09:07:00 Hospital CBC WITH PLATELET AND DIFFERENTIAL 2022-01-09 [facility], Shane Jainism 10:12:00 Hospital BASIC METABOLIC PANEL 2022-01-09 [facility], Omad Jainism 10:12:00 Hospital ESTIMATED GFR 2022-01-09 [facility], Shane Jainism 10:12:00 [facility] ESOPHAGOGASTRODUODENOSCOPY (EGD) 2022-01-08 Deuce Schneider Jainism 12:51:00 B. [facility] BASIC METABOLIC PANEL 2022-01-[address] 10:19:00 Hospital CBC HEMOGRAM 2022-01-08 Kimberly Simon 10:19:00 Hospital ESTIMATED GFR 2022-01-08 Kimberly Simon Jainism 10:19:00 Hospital BASIC METABOLIC PANEL 2022-01-[address] 08:41:00 [facility] CBC WITH PLATELET AND DIFFERENTIAL 2022-01-07 Caty Kyleist 08:41:00 Hospital ESTIMATED GFR 2022-01-07 Kimberly Simon 08:41:00 Hospital HEMOGLOBIN & HEMATOCRIT 2022-01-07 Kimberly Simon Metho dist 05:15:00 Hospital HEMOGLOBIN & HEMATOCRIT 2022-01-07 Kimberly Simon Metho dist 01:11:00 Hospital BASIC METABOLIC PANEL 2022-01-06 Sidney Soler Jainism 11:39:00 Hospital CBC HEMOGRAM 2022-01-06 Sidney Soler Jainism 11:39:00 Hospital MAGNESIUM LEVEL 2022-01-06 Sidney Soler Jainism 11:39:00 Hospital PHOSPHORUS LEVEL 2022-01-06 Sidney Soler Jainism 11:39:00 Hospital ESTIMATED GFR 2022-01-06 Sidney Soler Jainism 11:39:00 Hospital HEMOGLOBIN & HEMATOCRIT 2022-01-05 Lana Macario Leonardo t 19:53:00 Hospital CLOSTRIDIUM DIFFICILE TOXIN GENE 2022-01-05 Cynthia Jordan (QUALITATIVE REAL-TIME PCR) 17:52:00 Hosp ital POC GLUCOSE 2022-01-05 Kimberly Simon 17:14:00 Hospital POC GLUCOSE 2022-01-05 Kimberly Simon 13:20:00 Hospital BASIC METABOLIC PANEL 2022-01-05 Lashonda Fernandez 10:31:00 Hospital CBC HEMOGRAM 2022-01-05 Lashonda Fernandez 10:31:00 Hospital MAGNESIUM LEVEL 2022-01-05 Lashonda Fernandez 10:31:00 Hospital PHOSPHORUS LEVEL 2022-01-05 Lashonda Fernandez 10:31:00 Hospital IONIZED CALCIUM 2022-01-05 Lashonda Fernandez 10:31:00 Hospital ESTIMATED GFR 2022-01-05 Lashonda Fernandez 10:31:00 Hospital POC GLUCOSE 2022-01-05 Kimberly Simon 09:25:00 Hospital TRANSFUSE RED BLOOD CELLS 2022-01-05 Lashonda Fernandez ist 06:17:00 Hospital POC GLUCOSE 2022-01-05 Kimberly Simon 05:23:00 Hospital COMPREHENSIVE METABOLIC PANEL 2022-01-05 Cynthia Jordan ethodist 03:48:00 Hospital ESTIMATED GFR 2022-01-05 Cynthia Jordan 03:48:00 Hospital CBC WITH PLATELET AND DIFFERENTIAL 2022-01-05 Cynthia Jordan 03:45:00 Hospital PROTHROMBIN TIME WITH INR 2022-01-05 Cynthia Jordan Metho dist 03:45:00 Hospital POC GLUCOSE 2022-01-05 Kimberly Simon 01:21:00 Hospital OR FL < 1 HOUR 2022-01-04 Rigo Schneider 20:11:00 B. Hospital ARTERIAL BLOOD GAS, CORRECTED 2022-01-04 Kimberly Simon 19:11:00 Hospital SODIUM LEVEL, SYRINGE 2022-01-[address] 19:11:00 Hospital POTASSIUM, SYRINGE 2022-01-04 Kimberly Simon Jainism 19:11:00 Hospital HEMOGLOBIN, SYRINGE 2022-01-04 Kimberly Simonist 19:11:00 Hospital IONIZED CALCIUM, ARTERIAL 2022-01-04 Kimberly Simon hodist 19:11:00 Hospital GLUCOSE LEVEL, SYRINGE 2022-01-04 Kimberly Simon Method ist 19:11:00 Hospital MAGNESIUM LEVEL 2022-01-04 Kimberly Simonist 19:11:00 Hospital ACTIVATED CLOTTING TIME 2022-01-04 Kimberly Simon dist 19:10:00 Hospital [place] AN ELECTIVE SUPRAGLOTTIC AIRWAY 2022-01-04 Gemma Riley Jainism 16:34:00 [facility] LOWER EXTREMITY ANGIOGRAM,POSSIBLE 2022-01-04 Primo Coe ANGIOPLASTY,POSSIBLE STENT 16:23:00 [facility] OCCULT BLOOD, STOOL 2022-01-04 Singh Cevallos Jainism 15:02:00 Hospital TRANSFUSE RED BLOOD CELLS 2022-01-04 Dot Alexandra Method ist 11:02:00 Hospital BASIC METABOLIC PANEL 2022-01-04 Lana Macario Jainism 07:55:00 Hospital CBC WITH PLATELET AND DIFFERENTIAL 2022-01-04 Trisha Macario Jainism 07:55:00 [facility] ANTI XA, UNFRACTIONATED 2022-01-04 Brandon Somers t 07:55:00 Hospital ESTIMATED GFR 2022-01-04 Kimberly Simonist 07:55:00 Hospital ANTI XA, UNFRACTIONATED 2022-01-04 Brandon Somers Methodjason t 00:18:00 Hospital ANTI XA, UNFRACTIONATED 2022-01-03 Kimberly Simon dist 22:09:00 [facility] XR FOOT 3+ VW RIGHT 2022-01-03 Lola Spencer Jainism 22:01:09 [facility] ANTI XA, UNFRACTIONATED 2022-01-03 Brandon Somers t 15:40:00 [facility] ZZCOVID-19 ANTI-SPIKE IGG ANTIBODY 2022-01-03 Kerri Terrazas TITER 07:59:00 [facility] ANTI XA, UNFRACTIONATED 2022-01-03 Brandon Somersis t 07:59:00 Hospital ZZCOVID-19 SEROLOGY PATIENT 2022-01-03 Myronsheri Doris odelena SURVEILLANCE 07:59:00 [facility] CBC WITH PLATELET AND DIFFERENTIAL 2022-01-03 Kerri Terrazas 07:59:00 [facility] COMPREHENSIVE METABOLIC PANEL 2022-01-03 Me Nini thodist 07:59:00 [facility] ESTIMATED GFR 2022-01-03 [facility] ace 07:59:00 [facility] ECG ED PRELIMINARY INTERPRETATION 2022-01-03 Brandon Somersist 07:52:22 Hospital TROPONIN T 2022-01-03 kB Seth 05:55:00 Hospital TROPONIN T 2022-01-03 Bk Seth 02:29:00 Hospital PROTHROMBIN TIME WITH INR 2022-01-02 Brandon Somers ist 23:54:00 Hospital PARTIAL THROMBOPLASTIN TIME (PTT) 2022-01-02 Brandon Somers Jainism 23:54:00 Hospital TYPE AND SCREEN 2022-01-02 Brandon Somers Jainism 23:54:00 Hospital ANTI XA, UNFRACTIONATED 2022-01-02 Brandon Somers Methodis t 23:54:00 Hospital PREPARE RBC 2022-01-02 Jim Kaurhowiein Jainism 23:54:00 Hospital ECG 12-LEAD 2022-01-02 Bk Seth 23:44:27 Hospital COVID-19 QUALITATIVE RT-PCR 2022-01-02 Bk Seth ethodist 23:15:00 Hospital CBC WITH PLATELET AND DIFFERENTIAL 2022-01-02 Mejia Seth 23:15:00 Hospital COMPREHENSIVE METABOLIC PANEL 2022-01-02 Bk Seth 23:15:00 Hospital B NATRIURETIC PEPTIDE 2022-01-[address] 23:15:00 Hospital TROPONIN T 2022-01-02 Bk Seth 23:15:00 Hospital ESTIMATED GFR 2022-01-02 Bk Seth 23:15:00 Hospital US DUPLEX ARTERIAL LOWER EXTREMITY 2022-01-02 Singh Cevallos BILATERAL 20:30:00 Hospital BASIC METABOLIC PANEL 2021-09-[address] 11:02:00 [facility] CBC WITH PLATELET AND DIFFERENTIAL 2021-09-12 Anibal Jarvis 11:02:00 [facility] FERRITIN LEVEL 2021-09-12 Anibal Jarvis 11:02:00 [facility] TOTAL IRON BINDING CAPACITY 2021-09-12 Anibal Jarvis ethodist 11:02:00 [facility] ESTIMATED GFR 2021-09-12 Anibal Jarvis 11:02:00 [facility] XR FOOT 3+ VW LEFT 2021-09-11 Lola Spencer 11:53:05 [facility] CBC WITH PLATELET AND DIFFERENTIAL 2021-09-11 Bridget Rosa 09:26:00 [facility] COMPREHENSIVE METABOLIC PANEL 2021-09-11 Bridget Rosaodist 09:26:00 [facility] PHOSPHORUS LEVEL 2021-09-11 Bridget Rosa 09:26:00 [facility] MAGNESIUM LEVEL 2021-09-11 Bridget Roas 09:26:00 [facility] ESTIMATED GFR 2021-09-11 Bridget Rosa 09:26:00 [facility] ANAEROBIC CULTURE 2021-09-10 Lola Spencer 21:34:00 [facility] FUNGUS CULTURE 2021-09-10 Lola Spencer 21:34:00 [facility] AEROBIC CULTURE 2021-09-10 Lola Spencer 21:34:00 [facility] AFB CULTURE 2021-09-10 Lola Spencer 21:34:00 [facility] GRAM STAIN 2021-09-10 Lola Spencer 21:34:00 [facility] AFB STAIN 2021-09-10 Lola Spencer 21:34:00 [facility] [facility] [place] AN ELECTIVE SUPRAGLOTTIC AIRWAY 2021-09-10 Shabana Cancino 21:20:00 Hospital AMPUTATION, TOE 2021-09-10 Lola Spencer 21:02:00 [facility] SURGICAL PATHOLOGY REQUEST 2021-09-10 Anibal Jarvis thodist 13:39:00 [facility] CBC WITH PLATELET AND DIFFERENTIAL 2021-09-10 Bridget Rosa 10:45:00 [facility] COMPREHENSIVE METABOLIC PANEL 2021-09-10 Bridget Rosa thodist 10:45:00 [facility] MAGNESIUM LEVEL 2021-09-10 Bridget Rosa 10:45:00 [facility] PHOSPHORUS LEVEL 2021-09-10 Bridget Rosa 10:45:00 [facility] TYPE AND SCREEN 2021-09-10 Bridget Rosa 10:45:00 [facility] ESTIMATED GFR 2021-09-10 Bridget Rsoa 10:45:00 [facility] VANCOMYCIN LEVEL, TROUGH 2021-09-[address] 06:40:00 Hospital XR CHEST 1 VW PORTABLE 2021-09-09 Bridget Rosa 16:33:57 [facility] CBC WITH PLATELET AND DIFFERENTIAL 2021-09-09 Bridget Rosa 11:15:00 [facility] COMPREHENSIVE METABOLIC PANEL 2021-09-09 Bridget Rosa thodist 11:15:00 [facility] MAGNESIUM LEVEL 2021-09-09 Bridget Rosa 11:15:00 [facility] PHOSPHORUS LEVEL 2021-09-09 Bridget Rosa 11:15:00 [facility] ANTI XA, UNFRACTIONATED 2021-09-[address] 11:15:00 Hospital ESTIMATED GFR 2021-09-09 Bridget Rosa 11:15:00 [facility] TTE COMPLETE, WO CONTRAST, W 2021-09-08 Bridget Rosa hodist DOPPLER ([id number]) 21:48:00 [facility] CBC WITH PLATELET AND DIFFERENTIAL 2021-09-08 Andre Bryantist 17:11:00 Hospital CBC WITH PLATELET AND DIFFERENTIAL 2021-09-08 Bridget Rosa 09:16:00 [facility] COMPREHENSIVE METABOLIC PANEL 2021-09-08 Bridget Rosa 09:16:00 [facility] ESTIMATED GFR 2021-09-08 Bridget Rosa 09:16:00 [facility] CT ANGIOGRAM PE CHEST 2021-09-07 Singh Cevallos 14:25:12 Hospital XR CHEST 1 VW PORTABLE 2021-09-07 Nadege Dang 08:31:45 [facility] CBC WITH PLATELET AND DIFFERENTIAL 2021-09-07 Bridget Rosa 06:50:00 [facility] COMPREHENSIVE METABOLIC PANEL 2021-09-07 Bridget Rosa 06:50:00 [facility] MAGNESIUM LEVEL 2021-09-07 Bridget Rosa 06:50:00 [facility] PHOSPHORUS LEVEL 2021-09-07 Bridget Rosa 06:50:00 [facility] B NATRIURETIC PEPTIDE 2021-09-07 Nadege Dang 06:50:00 [facility] ESTIMATED GFR 2021-09-07 Bridget Rosa 06:50:00 [facility] CBC WITH PLATELET AND DIFFERENTIAL 2021-09-06 Singh Cevallos 17:14:00 Hospital PARTIAL THROMBOPLASTIN TIME (PTT) 2021-09-06 Singh Cevallos 17:14:00 Hospital CBC WITH PLATELET AND DIFFERENTIAL 2021-09-06 Singh Cevallos 08:57:00 Hospital COMPREHENSIVE METABOLIC PANEL 2021-09-06 Singh Cevallos 08:57:00 Hospital MAGNESIUM LEVEL 2021-09-06 Singh Cevallos 08:57:00 Hospital PHOSPHORUS LEVEL 2021-09-06 Singh Cevallos 08:57:00 Hospital ESTIMATED GFR 2021-09-06 Singh Cevallos 08:57:00 Hospital BASIC METABOLIC PANEL 2021-09-06 Eder Marcelino 02:10:00 [facility] CBC WITH PLATELET AND DIFFERENTIAL 2021-09-06 Eder Marcelino 02:10:00 [facility] LACTIC ACID LEVEL 2021-09-06 Eder Marcelino 02:10:00 [facility] MAGNESIUM LEVEL 2021-09-06 Eder Marcelino 02:10:00 [facility] PHOSPHORUS LEVEL 2021-09-06 Eder Marcelino 02:10:00 [facility] ESTIMATED GFR 2021-09-06 Eder Marcelino 02:10:00 [facility] PROTHROMBIN TIME WITH INR 2021-09-06 Eder Marcelino ist 02:10:00 [facility] PARTIAL THROMBOPLASTIN TIME (PTT) 2021-09-06 Eder Marcelino 02:10:00 [facility] OR [place] < 1 HOUR 2021-09-06 Singh Cevallos 00:10:39 Hospital POC GLUCOSE 2021-09-05 Bridget Rosa 23:43:00 [facility] ACTIVATED CLOTTING TIME 2021-09-05 Bridget Rosa t 22:51:00 [facility] ACTIVATED CLOTTING TIME 2021-09-05 Bridget Rosa t 22:27:00 [facility] ACTIVATED CLOTTING TIME 2021-09-05 Bridget Rosa t 21:57:00 [facility] ARTERIAL BLOOD GAS, CORRECTED 2021-09-05 Bridget Rosa thodist 21:20:00 [facility] SODIUM LEVEL, SYRINGE 2021-09-05 Bridget Rosa 21:20:00 [facility] POTASSIUM, SYRINGE 2021-09-05 Bridget Rosa 21:20:00 [facility] HEMOGLOBIN, SYRINGE 2021-09-05 Bridget Rosa 21:20:00 [facility] IONIZED CALCIUM, ARTERIAL 2021-09-05 Bridget Rosa ist 21:20:00 [facility] GLUCOSE LEVEL, SYRINGE 2021-09-05 Bridget Rosa 21:20:00 [facility] MAGNESIUM LEVEL 2021-09-05 Bridget Rosa 21:20:00 [facility] ACTIVATED CLOTTING TIME 2021-09-05 Bridget Rosa Methodis t 21:20:00 [facility] ARTERIAL BLOOD GAS, CORRECTED 2021-09-05 Bridget Rosa thodist 20:30:00 [facility] SODIUM LEVEL, SYRINGE 2021-09-05 Bridget Rosa 20:30:00 [facility] POTASSIUM, SYRINGE 2021-09-05 Bridget Rosa 20:30:00 [facility] HEMOGLOBIN, SYRINGE 2021-09-05 Bridget Rosa 20:30:00 [facility] IONIZED CALCIUM, ARTERIAL 2021-09-05 Bridget Rosa ist 20:30:00 [facility] GLUCOSE LEVEL, SYRINGE 2021-09-05 Bridget Rosa 20:30:00 [facility] MAGNESIUM LEVEL 2021-09-05 Bridget Rosa 20:30:00 [facility] ACTIVATED CLOTTING TIME 2021-09-05 Bridget Rosa t 20:21:00 [facility] ACTIVATED CLOTTING TIME 2021-09-05 Bridget Rosa t 20:12:00 [facility] ACTIVATED CLOTTING TIME 2021-09-05 Bridget Rosa t 20:03:00 [facility] ARTERIAL LINE 2021-09-05 Kerri Brenner 19:24:37 [facility] ACTIVATED CLOTTING TIME 2021-09-05 Bridget Rosa t 18:52:00 [facility] URINE CULTURE 2021-09-05 Singh Cevallos 18:19:00 [facility] URINALYSIS SCREEN AND MICROSCOPY, 2021-09-05 Singh Cevallos WITH REFLEX TO CULTURE 18:19:00 [facility] [place] AN ELECTIVE ENDOTRACHEAL AIRWAY 2021-09-05 Kerri Brenner 18:12:00 [facility] ENDARTERECTOMY, FEMORAL 2021-09-05 Singh Cevallos t 17:53:00 [facility] ARTERIAL LINE 2021-09-05 Jim Gorman 17:48:24 Hospital ESTIMATED GFR 2021-09-05 Bridget Rosa 17:33:00 [facility] POC PANEL 2021-09-05 Bridget Rosa 17:33:00 [facility] CBC WITH PLATELET AND DIFFERENTIAL 2021-09-05 Andre Bryant 17:27:00 Hospital BASIC METABOLIC PANEL 2021-09-05 Bryant, Tarundeep Jainism 17:27:00 Hospital ESTIMATED GFR 2021-09-05 Bridget Rosa Jainism 17:27:00 [facility] SURGICAL PATHOLOGY REQUEST 2021-09-05 Bridget Rosa Metho dist 13:40:00 [facility] XR CHEST 1 VW PORTABLE 2021-09-05 Flynn Bryant Methodjason t 12:00:48 Hospital TYPE AND SCREEN 2021-09-05 Gregg Jainism 06:25:00 [facility] PREPARE RBC 2021-09-05 Clement Perkins Jainism 06:25:00 [facility] PREPARE FRESH FROZEN PLASMA 2021-09-05 Flynn Bryant Met hodist 06:25:00 Hospital PREPARE PLATELET PHERESIS 2021-09-05 Flynn Bryant Metho dist 06:25:00 Hospital VANCOMYCIN LEVEL, TROUGH 2021-09-[address] 06:24:00 Hospital BASIC METABOLIC PANEL 2021-09-05 Flynn Bryant Jainism 06:24:00 Hospital CBC WITH PLATELET AND DIFFERENTIAL 2021-09-05 Andre Bryant Jainism 06:24:00 Hospital PROTHROMBIN TIME WITH INR 2021-09-05 Flynn Bryant Metho dist 06:24:00 Hospital PARTIAL THROMBOPLASTIN TIME (PTT) 2021-09-05 Sriram Bryant Jainism 06:24:00 Hospital ESTIMATED GFR 2021-09-05 Bridget Rosa Jainism 06:24:00 [facility] COVID-19 QUALITATIVE RT-PCR 2021-09-05 Flynn Bryant Met hodist 04:28:00 Hospital CBC WITH PLATELET AND DIFFERENTIAL 2021-09-04 LaeAngeles gorman Jainism 10:05:00 Hospital BASIC METABOLIC PANEL 2021-09-04 Laeeq Angelesady Drake Methodis t 10:05:00 Hospital MAGNESIUM LEVEL 2021-09-04 AbraneqAngeles Jainism 10:05:00 Hospital ESTIMATED GFR 2021-09-04 Laeeq Angelesady Drake Jainism 10:05:00 Hospital PARTIAL THROMBOPLASTIN TIME (PTT) 2021-09-03 Angeles Ramirez Jainism 23:04:00 [facility] US DUPLEX VENOUS UPPER EXTREMITY 2021-09-03 Laeeq, Angeles Villalobosist LEFT 20:51:20 Hospital PARTIAL THROMBOPLASTIN TIME (PTT) 2021-09-03 Laeeq, Angeles Villalobosist 17:41:00 Hospital PARTIAL THROMBOPLASTIN TIME (PTT) 2021-09-03 Santos Duránist 14:26:00 [facility] CT ANGIOGRAM ABDOMINAL AORTA AND 2021-09-03 Singh Cevallosist BILATERAL ILIOFEMORAL RUNOFF W WO 09:40:46 Hospital CONTRAST BASIC METABOLIC PANEL 2021-09-03 Laeeq, Angeles Villalobosis t 07:23:00 Hospital CBC WITH PLATELET AND DIFFERENTIAL 2021-09-03 Laeeq, Angeles Villalobosist 07:23:00 Hospital PARTIAL THROMBOPLASTIN TIME (PTT) 2021-09-03 Laeeq, Angeles Villalobosist 07:23:00 Hospital ESTIMATED GFR 2021-09-03 Laeeq, Angeles Villalobosist 07:23:00 Hospital BASIC METABOLIC PANEL 2021-09-03 Laeeq, Angeles Patterson t 06:34:00 Hospital PARTIAL THROMBOPLASTIN TIME (PTT) 2021-09-03 Santos Durán 06:34:00 [facility] PARTIAL THROMBOPLASTIN TIME (PTT) 2021-09-02 Kerri Terrazas 23:39:00 [facility] PARTIAL THROMBOPLASTIN TIME (PTT) 2021-09-02 Kerri Terrazas 14:56:00 [facility] VENOUS BLOOD GAS 2021-09-02 Laeeq, Angeles Tinoco 14:56:00 Hospital BETA HYDROXYBUTYRATE 2021-09-02 Laeeq, Angeles Villalobosist 14:56:00 Hospital LACTIC ACID LEVEL 2021-09-02 Laeeq, Angeles Tinoco 14:56:00 Hospital VANCOMYCIN LEVEL, RANDOM 2021-09-[address] 07:39:00 [facility] COMPREHENSIVE METABOLIC PANEL 2021-09-02 Laeeq, Angeles Tinoco 07:39:00 Hospital MAGNESIUM LEVEL 2021-09-02 Laeeq, Angeles Villalobosist 07:39:00 Hospital PHOSPHORUS LEVEL 2021-09-02 Laeeq, Angeles Villalobosist 07:39:00 Hospital PARTIAL THROMBOPLASTIN TIME (PTT) 2021-09-02 Kerri Terrazas 07:39:00 [facility] ESTIMATED GFR 2021-09-02 LaeAngeles gorman 07:39:00 Hospital CBC WITH PLATELET AND DIFFERENTIAL 2021-09-02 Angeles Ramirez 06:08:00 Hospital PARTIAL THROMBOPLASTIN TIME (PTT) 2021-09-01 Kerri Terrazas 22:05:00 [facility] PARTIAL THROMBOPLASTIN TIME (PTT) 2021-09-01 Santos Durán 13:28:00 [facility] CBC WITH PLATELET AND DIFFERENTIAL 2021-09-01 Kerri Terrazas 11:04:00 [facility] COMPREHENSIVE METABOLIC PANEL 2021-09-01 Me Nini thkhalida 11:04:00 [facility] MAGNESIUM LEVEL 2021-09-01 Angeles Ramirez 11:04:00 Hospital PHOSPHORUS LEVEL 2021-09-01 LaeeqAngeles 11:04:00 Hospital ESTIMATED GFR 2021-09-01 Kerri Terrazas 11:04:00 [facility] PARTIAL THROMBOPLASTIN TIME (PTT) 2021-09-01 Angeles Ramirezist 05:29:00 Hospital US DUPLEX ARTERIAL LOWER EXTREMITY 2021-09-01 Andre Bryant Jainism LEFT 01:39:02 [facility] MRI LOWER EXTREMITY WO CONTRAST 2021-08-31 Lloa Spencer Jainism LEFT 22:41:49 [facility] MRI BRAIN WO CONTRAST 2021-08-31 Flynn Bryant Jainism 22:00:49 Hospital PARTIAL THROMBOPLASTIN TIME (PTT) 2021-08-31 Angeles Ramirezist 21:26:00 Hospital PARTIAL THROMBOPLASTIN TIME (PTT) 2021-08-31 Kerri Terrazas 13:23:00 [facility] XR FOOT 3+ VW RIGHT 2021-08-31 Chavez Duránist 11:19:03 [facility]19 ANTI-SPIKE IGG ANTIBODY 2021-08-31 Kerri Terrazas TITER 10:29:00 [facility] 2021-08-31 Doris Terrazas SURVEILLANCE 10:29:00 [facility] C-REACTIVE PROTEIN 2021-08-31 Kerri Terrazas 10:29:00 [facility] CONSULT TO OSTOMY CARE NURSE 2021-08-31 Met dajuan Terrazas 09:28:07 [facility] US DUPLEX VENOUS LOWER EXTREMITY 2021-08-31 Carmine Durán Jainism RIGHT 07:35:41 [facility] US DUPLEX ARTERIAL LOWER EXTREMITY 2021-08-31 Darryl Durán Jainism RIGHT 07:35:22 [facility] COVID-19 QUALITATIVE RT-PCR 2021-08-31 Chavez Durán [facility] 07:20:00 [facility] COMPREHENSIVE METABOLIC PANEL 2021-08-31 Chavez Durán 06:07:00 [facility] CBC WITH PLATELET AND DIFFERENTIAL 2021-08-31 Darryl Durán Jainism 06:07:00 [facility] PROTHROMBIN TIME WITH INR 2021-08-31 Chavez Durán odist 06:07:00 [facility] PARTIAL THROMBOPLASTIN TIME (PTT) 2021-08-31 Santos Durán 06:07:00 [facility] ESTIMATED GFR 2021-08-31 Chavez Durán 06:07:00 [facility] ANTI XA, UNFRACTIONATED 2021-08-31 Chavez Durán Method ist 06:07:00 [facility] [place] CRITICAL CARE ILL/INJURED 2021-08-31 Chavez Durán ethodi PATIENT INIT 30-74 MIN 05:23:44 [facility] Plan of Care Planned Activity Planned Date Details Comments Source Future Scheduled 2022-10-02 65+ PNEUMOCOCCAL [facility] Test 06:09:58 VACCINE (1 - PCV) [code = 65+ PNEUMOCOCCAL VACCINE (1 - PCV)] Future Scheduled 2022-10-02 Hepatitis C screening [facility] Test 06:09:58 (procedure) [code = 832148423] Future Scheduled 2022-10-02 SHINGLES VACCINES (1 Met [facility] Test 06:09:58 of 2) [code = SHINGLES VACCINES (1 of 2)] Future Scheduled 2022-10-02 BREAST CANCER [facility] Test 06:09:58 SCREENING [code = BREAST CANCER SCREENING] Future Scheduled 2022-10-02 COLONOSCOPY SCREENING [facility] Test 06:09:58 [code = COLONOSCOPY SCREENING] Future Scheduled 2022-10-02 COVID-19 VACCINE (4 - Me [facility] Test 06:09:58 Booster for Moderna series) [code = COVID-19 VACCINE (4 - Booster for Moderna series)] Future Scheduled 2022-10-02 INFLUENZA VACCINE [facility] 06:09:58 [code = INFLUENZA VACCINE] Future Scheduled 2022-05-23 65+ [facility]UMOCOCCAL [facility] Test 14:31:50 VACCINE (1 - PCV) [code = 65+ PNEUMOCOCCAL VACCINE (1 - PCV)] Future Scheduled 2022-05-23 Hepatitis C screening [facility] Test 14:31:50 (procedure) [code = 081949604] Future Scheduled 2022-05-23 SHINGLES VACCINES (1 Met [facility] Test 14:31:50 of 2) [code = SHINGLES VACCINES (1 of 2)] Future Scheduled 2022-05-23 BREAST CANCER [facility] Test 14:31:50 SCREENING [code = BREAST CANCER SCREENING] Future Scheduled 2022-05-23 COLONOSCOPY SCREENING [facility] Test 14:31:50 [code = COLONOSCOPY SCREENING] Future Scheduled 2022-05-23 COVID-19 VACCINE (4 - [facility] Test 14:31:50 Booster for Moderna series) [code = COVID-19 VACCINE (4 - Booster for Moderna series)] Future Scheduled 2022-05-23 INFLUENZA VACCINE Method [facility] Test 14:31:50 [code = INFLUENZA VACCINE] Encounters Start End Encounter Admission Attending Care Care Encounter Source Date/Time Date/Time Type Type Clinicians Facility Department ID 2022-08-20 Outpatient Somers, [facility] [id number] Common 09:57:02 Tristen [id number] [facility] 2022-06-24 Outpatient Somers, [facility] [id number] Common 07:32:00 Tristen [id number] [facility] 2022-06-21 Outpatient Somers, [facility] [id number] Common 09:36:01 Tristen [id number] [facility] 2022-04-26 Outpatient Somers, [facility] [id number] Common 12:45:01 Tristen [facility] 2022-04-19 Out[facility], [facility] [id number] Common 11:42:00 Tristen [facility] 2021-06-13 Outpatient Somers, [facility] [id number] Common 14:30:45 Tristen [facility] 2021-06-13 Outpatient Somers, [facility] [id number] Common 14:19:25 Tristen [id number] [facility] 2021-06-13 Outpatient Somers, [facility] [id number] Common 14:04:08 Tristen [id number] [facility] 2022-08-23 2022-08-23 Orders Singh Cevallos 1.2.840.1 [id number] Methodi 00:00:00 00:00:[address] 3.430.2.7 Hospit a .3.747393 l .8 2022-08-12 2022-08-12 Office MartPhongy 1.2.840.1 [id number] Methodi 13:15:00 14:19:[address] 3.430.2.7 Hospit a .3.444318 l .8 2022-08-12 2022-08-12 Outpatient SINGH CEVALLOS [facility] [id number] [place] 00:00:00 00:00:[address] 2022-08-12 2022-08-12 Travel 1.2.840.1 1.2.233.390 5869 [id number] Methodi 00:00:00 00:00:[address] 3.430.2.7 0.2.7.3.698 Ho spita .3.879325 084.8 l .8 2022-08-07 2022-08-08 Outpatient SINGH CEVALLOS [facility] [id number] [place] 00:00:00 00:00:[address] 2022-08-07 2022-08-07 Travel 1.2.840.1 1.2.700.222 8895 [id number] Methodi 00:00:00 00:00:[address] 3.430.2.7 0.2.7.3.698 Ho spita .3.047774 084.8 l .8 2022-08-05 2022-08-05 ZOE Visit Azra 2.16.840. 2.16.840.1. CL [id number] Devoted 14:30:00 15:00:00 Follow Up Pastrana 1.901339. 074631.4.6. 48C Medical [[facility]/OD [id number] [id number] Only] 38522 2022-07-30 2022-07-30 Telephone Nancy 1.2.840.1 [id number] Methodi 00:00:00 00:00:[address] 3.430.2.7 Hospit a .3.340007 l .8 2022-07-29 2022-07-29 ZOE Visit Azra 2.16.840. 2.16.840.1. CL [id number] Devoted 15:30:00 16:30:00 Pastrana 1.085966. 931187.4.6. [facility] Medical [id number] [id number] 2022-07-24 2022-07-24 Orders Reynold, 1.2.840.1 [id number] 2099 [id number] Methodi 00:00:00 00:00:00 Only Stephania 23363.1.[address] 3.430.2.7 Hospit a .3.241199 l .8 2022-07-24 2022-07-24 Orders Reynold, 1.2.840.1 [id number] [id number] Methodi 00:00:00 00:00:00 Only Stephania 01136.1.[address] 3.430.2.7 Hospit a .3.664404 l .8 2022-07-19 2022-07-19 Telephone Cruz, 1.2.840.1 [id number] Methodi 00:00:00 00:00:[address] 3.430.2.7 Hospit a .3.880931 l .8 2022-07-15 2022-07-15 Patient Seymour, 1.2.840.1 [id number] Methodi 00:00:00 00:00:00 Outreach Rinlittle 31137.1.[address] 3.430.2.7 Hospit a .3.459867 l .8 2022-07-06 2022-07-12 [facility] 1.2.840.1 10 [id number] Methodi 03:39:00 19:54:00 Encounter Deedee Gonzalez 97271.1.[address] Malathi Zavala 3.430.2.7 [facility] Demetri Blackburn .3.259886 l .8 2022-07-06 2022-07-12 Inpatient DEMETRI LOPEZ [facility] [id number] [place] 00:00:00 00:00:[address] 2022-07-10 2022-07-10 Anesthesia Merary Fernandez 1.2.840. 1 [id number] Methodi 11:52:00 14:14:00 Event Ivanna Kidd 93286.1.[address] 3.430.2.7 Hospit a .3.361659 l .8 2022-07-10 2022-07-10 Surgery Singh Cevallos 1.2.840.1 [id number] Methodi 11:00:00 13:25:[address] 3.430.2.7 Hospit a .3.190446 l .8 2022-07-09 2022-07-09 Prep for Nancy, 1.2.840.1 [id number] Methodi 00:00:00 00:00:00 Surgery Madalyn 29647.1.[address] 3.430.2.7 Hospit a .3.805969 l .8 2022-07-06 2022-07-06 Travel 1.2.840.1 1.2.502.196 2411 [id number] Methodi 00:00:00 00:00:[address] 3.430.2.7 0.2.7.3.698 Ho spita .3.903014 084.8 l .8 2022-06-25 2022-06-25 OFFICE STLMLC STLMLC [id number] Co mmon 00:00:00 00:00:00 VISIT Spirit ESTAB PT - CHI LEVEL 4 [facility] 2022-06-25 2022-06-25 SUB ANNUAL STLMLC STLMLC [id number] Common 00:00:00 00:00:00 MCR Spirit WELLNESS - CHI VISIT [facility] 2022-06-03 2022-06-03 (TEL) STLMLC STLMLC [id number] Co mmon 00:00:00 00:00:00 Spirit - CHI [facility] 2022-04-23 2022-04-23 OFFICE STLMLC STLMLC [id number] Co mmon 00:00:00 00:00:00 VISIT Spirit ESTAB PT - CHI LEVEL 4 [facility] 2022-02-12 2022-02-12 OFFICE STLMLC STLMLC [id number] Co mmon 00:00:00 00:00:00 VISIT Spirit ESTAB PT - CHI LEVEL 4 [facility] 2022-02-05 2022-02-05 Travel 1.2.840.1 1.2.089.150 [id number] [id number] Methodi 00:00:00 00:00:[address] 3.430.2.7 0.2.7.3.698 Ho spita .3.005350 084.8 l .8 2022-02-05 2022-02-05 Travel 1.2.840.1 1.2.551.696 1667 969003 Methodi 00:00:00 00:00:[address] 3.430.2.7 0.2.7.3.698 Ho spita .3.244750 084.8 l .8 2022-01-22 2022-01-22 (TEL) STLMLC STLMLC [id number] Co mmon 00:00:00 00:00:00 [facility] 2022-01-16 2022-01-16 (TEL) STLMLC STLMLC [id number] Co mmon 00:00:00 00:00:00 [facility] 2022-01-14 2022-01-14 Travel 1.2.840.1 1.2.980.314 [id number] [id number] Methodi 00:00:00 00:00:[address] 3.430.2.7 0.2.7.3.698 Ho spita .3.681946 084.8 l .8 2022-01-14 2022-01-14 Orders Flaherty, 1.2.840.1 [id number] 2099 [id number] Methodi 00:00:00 00:00:00 Only Stephania 37059.1.[address] 3.430.2.7 Hospit a .3.840154 l .8 2022-01-14 2022-01-14 Orders Flaherty, 1.2.840.1 [id number] Methodi 00:00:00 00:00:00 Only Stephania 79178.1.[address] 3.430.2.7 Hospit a .3.124457 l .8 2022-01-14 2022-01-14 Travel 1.2.840.1 1.2.072.289 7849 [id number] Methodi 00:00:00 00:00:[address] 3.430.2.7 0.2.7.3.698 Ho spita .3.971896 084.8 l .8 2022-01-14 2022-01-14 Orders Flaherty, 1.2.840.1 [id number] Methodi 00:00:00 00:00:00 Only Stephania 88766.1.[address] 3.430.2.7 Hospit a .3.480007 l .8 2022-01-14 2022-01-14 [facility] 1.2.840.1 [id number] Methodi 00:00:00 00:00:00 Only Stephania 37427.1.[address] 3.430.2.7 Hospit a .3.423226 l .8 2022-01-02 2022-01-10 [facility]1 [id number] Methodi 17:47:00 17:14:00 Encounter Lyubov Terrazasel 30053.1.[address] Shwetaisonidia, Kimberly [facility].430.2.7 [facility] .[facility] .8 2022-01-02 2022-01-10 [facility] 1.2.840.1 [id number] Methodi 17:47:00 17:14:00 Encounter Lyubov Terrazasel 60509.1.[address] Shwetaisola, Kimberly 3.430.2.7 [facility] .3.809213 l .8 2022-01-08 2022-01-08 Surgery [facility], 1.2.840.1 [id number] Methodi 09:17:00 09:42:00 Rigo Lux [address]09.1.[address] 3.430.2.7 Hospit a .3.139101 l .8 2022-01-08 2022-01-08 Surgery [facility], 1.2.840.1 [id number] Methodi 09:17:00 09:42:00 Rigo Lux 94796.1.[address] 3.430.2.7 Hospit a .3.937739 l .8 2022-01-08 2022-01-08 Anesthesia Tejas 1.2.840.1 [id number] Methodi 07:56:00 08:12:00 Event Yaoyao 41914.1.[address] Milvia 3.430.2.7 Hospit a .3.018903 l .8 2022-01-08 2022-01-08 Anesthesia Tejas, 1.2.840.1 [id number] Methodi 07:56:00 08:12:00 Event Yaoyao 71766.1.[address] [place]via 3.430.2.7 Hospit a .3.715207 l .8 2022-01-04 2022-01-04 Surgery Saravanan, 1.2.840.1 [id number] 4766 Methodi 13:55:00 16:05:[address] [facility] 3.430.2.7 [facility] .3.365378 l .8 2022-01-04 2022-01-04 Surgery Saravanan, 1.2.840.1 [id number] Methodi 13:55:00 16:05:[address] [facility]-i 3.430.2.7 Hosp edgard .3.902576 l .8 2022-01-04 2022-01-04 Anesthesia Bala Riley 1.2.840.1 [id number] Methodi 11:23:00 15:22:00 Event Marisol Cosby 59287.1.[address] 3.430.2.7 Hospit a .3.559079 l .8 2022-01-04 2022-01-04 Anesthesia Bala Riley 1.2.840.1 [id number] Methodi 11:23:00 15:22:00 Event Marisol Cosby 36828.1.[address] 3.430.2.7 Hospit a .3.971701 l .8 2022-01-02 2022-01-03 Office Singh Cevallos 1.2.840.1 [id number] Methodi 15:00:00 09:08:[address] 3.430.2.7 Hospit a .3.770197 l .8 2022-01-02 2022-01-03 Office Singh Cevallos 1.2.840.1 [id number] Methodi 15:00:00 09:08:[address] 3.430.2.7 Hospit a .3.829541 l .8 2022-01-02 2022-01-02 Travel 1.2.840.1 1.2.219.627 9416 [id number] Methodi 00:00:00 00:00:[address] 3.430.2.7 0.2.7.3.698 Ho spita .3.171304 084.8 l .8 2022-01-02 2022-01-02 Outpatient SINGH CEVALLOS [facility] [id number] 7663 [place] 00:00:00 00:00:[address] 2022-01-02 2022-01-02 Travel 1.2.840.1 1.2.676.993 8612 [id number] Methodi 00:00:00 00:00:[address] 3.430.2.7 0.2.7.3.698 Ho spita .3.719124 084.8 l .8 2021-12-31 2021-12-31 Telephone Reynold, 1.2.840.1 [id number] Methodi 00:00:00 00:00:[address] 3.430.2.7 Hospit a .3.764608 l .8 2021-12-31 2021-12-31 Telephone Reynold, 1.2.840.1 [id number] Methodi 00:00:00 00:00:[address] 3.430.2.7 Hospit a .3.297268 l .8 2021-12-27 2021-12-27 (TEL) STLMLC STLMLC [id number] Co mmon 00:00:00 00:00:00 [facility] 2021-12-13 2021-12-13 (TEL) STLMLC STLMLC [id number] Co mmon 00:00:00 00:00:00 [facility] 2021-12-11 2021-12-11 OFFICE STLMLC STLMLC [id number] Co mmon 00:00:00 00:00:00 VISIT [facility] PT - CHI LEVEL 4 [facility] 2021-11-30 2021-11-30 Outpatient DMG DMG 11637-0 022 [facility]oted 07:16:00 07:16:00 0715 [facility] 2021-11-30 2021-11-30 Outpatient DMG [facility] 22155-4 023 [facility] 00:00:00 00:00:00 0506 [facility] 2021-10-17 2021-10-17 OFFICE STLMLC STLMLC [id number] Co mmon 00:00:00 00:00:00 VISIT [facility] PT - CHI LEVEL 4 [facility] 2021-09-21 2021-09-21 (TEL) STLMLC STLMLC [id number] Co mmon 00:00:00 00:00:00 [facility] 2021-09-18 2021-09-18 (HOSP F/U) STLMLC STLMLC [id number] Common 00:00:00 00:00:00 [facility] Follow Up - [facility] 2021-09-14 2021-09-14 (TEL) STLMLC STLMLC [id number] Co mmon 00:00:00 00:00:00 [facility] 2021-08-31 2021-09-12 [facility] Chavez Durán 1.2.840 .1 [id number] Methodi 00:20:00 16:31:00 Encounter Irwin Syed 22335.1.1 099 [facility] [place] Drake .3.124164 l Bridget Rosa .8 Anibal Jarvis 2021-09-10 2021-09-10 Surgery Tj, 1.2.840.1 [id number] Methodi 15:50:00 16:55:[address] Kunjan 3.430.2.7 Hospit a .3.241952 l .8 2021-09-10 2021-09-10 Anesthesia Nilton Tanya A. 1.2.840.1 10 [id number] Methodi 16:03:00 16:53:00 Event Santiago Franco 84208.1.[address] 3.430.2.7 Hospit a .3.468507 l .8 2021-09-05 2021-09-05 Anesthesia Jim Merarynuria Davison 1.2.840. 1 [id number] Methodi 12:58:00 18:35:00 Event AmaliaAnthony kaba 87937.1.[address] 3.430.2.7 Hospit a .3.048210 l .8 2021-09-05 2021-09-05 Surgery Singh Cevallos 1.2.840.1 [id number] Methodi 13:20:00 16:50:[address] 3.430.2.7 Hospit a .3.339156 l .8 2021-08-31 2021-08-31 Travel 1.2.840.1 1.2.831.054 4578 [id number] Methodi 00:00:00 00:00:[address] 3.430.2.7 0.2.7.3.698 Ho spita .3.280357 084.8 l .8 2021-08-20 2021-08-20 Telephone Victoriano, 1.2.840.1 [id number] 21 [id number] Methodi 00:00:00 00:00:[address] 3.430.2.7 Hospit a .3.795652 l .8 2021-08-07 2021-08-07 OFFICE STLMLC STLMLC [id number] Co mmon 00:00:00 00:00:00 VISIT Spirit [facility] PT - CHI LEVEL 4 [facility] 2021-06-29 2021-06-29 (TEL) STLMLC STLMLC [id number] Co mmon 00:00:00 00:00:00 [facility] 2021-06-20 2021-06-20 OFFICE STLMLC STLMLC [id number] Co mmon 00:00:00 00:00:00 VISIT [facility] PT - CHI LEVEL 4 [facility] 2021-05-22 2021-05-22 OFFICE STLMLC STLMLC [id number] Co mmon 00:00:00 00:00:00 VISIT [facility] PT - CHI LEVEL 4 [facility] 2021-04-18 2021-04-18 OFFICE STLMLC STLMLC [id number] Co mmon 00:00:00 00:00:00 VISIT [facility] PT - CHI LEVEL 4 [facility] 2021-03-13 2021-03-13 OFFICE STLMLC STLMLC [id number] Co mmon 00:00:00 00:00:00 VISIT [facility] PT - CHI LEVEL 4 [facility] 2021-03-13 2021-03-13 SUB ANNUAL STLMLC STLMLC [id number] Common 00:00:00 00:00:00 MCR Spirit WELLNESS - CHI VISIT [facility] 2021-03-05 2021-03-05 Outpatient DMG DMG [id number] 021 [facility] 11:01:00 11:01:00 1018 [facility] l [facility] 2021-03-05 2021-03-05 Outpatient MART, SINGH [facility] [id number] 2343 [place] 00:00:00 00:00:[address] 2021-03-05 2021-03-05 Outpatient MART, SINGH [facility] [id number] 3147 [place] 00:00:00 00:00:[address] 2021-03-05 2021-03-05 Outpatient [facility] [id number] 701 [place] 00:00:00 00:00:[address] 2021-02-20 2021-02-20 OFFICE STLMLC STLMLC [id number] Co mmon 00:00:00 00:00:00 VISIT Spirit ESTAB PT - CHI LEVEL 4 [facility] 2021-02-03 2021-02-10 Inpatient AWE, [facility] 064 [id number] 83 [place] 00:00:00 00:00:00 VALE [address] 2021-01-30 2021-01-31 Outpatient MARTSINGH [facility] [id number] 4115 [place] 00:00:00 00:00:[address] 2021-01-30 2021-01-30 Outpatient MARTSINGH [facility] [id number] 6945 [place] 00:00:00 00:00:00 862 Method i 2021-01-30 2021-01-30 Outpatient MARTSINGH [facility] [id number] 2140 [place] 00:00:00 00:00:00 947 Method i 2021-01-23 2021-01-23 OFFICE STLMLC STLMLC [id number] Co mmon 00:00:00 00:00:00 VISIT AMINTA Leon PT LEVEL 4 - [facility] Results Test Description Test Time Test Comments Results Result Comments Source ECG 12 lead 2022-07-09 22:30:42 Test Item Value Reference Range Interpretation Comme nts Ventricular rate (test code = 253) 68 Atrial rate (test code = 255) 68 FL interval (test code = 266) 148 QRSD interval (test code = 260) 88 QT interval (test code = 264) 416 QTC interval (test code = 265) 442 P axis 1 (test code = 267) 49 QRS axis 1 (test code = 268) 36 T wave axis (test code = 270) 40 EKG impression (test code = 273) Normal sinus rhythm-Normal ECG-In automated comparison with ECG of 02-JAN-2022 18:44,-T wave amplitude has increased in Anterior leads- Kerri PleitezARS-CoV-2 (COVID-19) RNA [Presence] in Respiratory specimen by VINH with probe [id number] 05:41:31 Test Item Value Reference Range Interpretation Comments SARS-CoV-2 (COVID-19) RNA Not detected [Presence] in Respiratory specimen by VINH with probe detection (test code = 23387-8) Whether patient is employed in a Unknown healthcare setting (test code = 72345-2) Whether the patient has symptoms Unknown related to condition of interest (test code = 61756-2) Whether the patient was Unknown hospitalized for condition of interest (test code = 75720-0) Whether the patient was admitted Unknown to intensive care unit (ICU) for condition of interest (test code = 78937-4) Whether patient resides in a Unknown congregate care setting (test code = 85368-2) status (test code = Unknown 80850-1) Date and time of symptom onset Unknown (test code = 47140-1) [facility] [id number] 17:15:00 Test Item Value Reference Range Interpretation Comments POC glucose (test code = 155 mg/dL 65-99 H Ope rator Name: 21093-8) [facility]: [id number] able: RN Notified Lab Interpretation (test Abnormal code = 31177-7) [facility] [id number] 17:15:00 Test Item Value Reference Range Interpretation Comments POC glucose (test code = 155 mg/dL 65-99 H Ope rator Name: 23702-7) [facility]: [id number] able: RN Notified Lab Interpretation (test Abnormal code = 74628-1) [facility] RBC, 1 [id number] 06:11:00 Test Item Value Reference Range Interpretation Comments Product name (test code Red Blood Cells -1, = 25) Leukored Unit number (test code [id number] = 5047527) Product code (test code W4523O17 = 3092) Dispense status (test Transfused code = 24) Blood expiration date (test code = 302) Blood type code (test 5100 code = 308) Blood type (test code = O POSITIVE 1314) Compatibility (test Compatible code = 6400) [facility] RBC, 1 [id number] 06:11:00 Test Item Value Reference Range Interpretation Comments Product name (test code Red Blood Cells -1, = 25) Leukored Unit number (test code [id number] = 1300137) Product code (test code F7582W04 = 3092) Dispense status (test Transfused code = 24) Blood expiration date (test code = 302) Blood type code (test 5100 code = 308) Blood type (test code = O POSITIVE 1314) Compatibility (test Compatible code = 6400) [facility], [id number] 19:31:00 Test Item Value Reference Range Interpretation [...] [A utomated message] = 2703-7) The system [employer] h generated this result transmitted ref erence range: 80 - 90 mmHg. The reference r carole was not used to interpret this result as normal/abnor mal. Temperature, Celsius 36.9 Degrees C (test code = 8310-5) O2 saturation, arterial 99 % 95-100 (test code = 2708-6) pH, arterial corrected 7.32 (test code = 92832-1) pCO2, arterial corrected 37 mmHg (test code = 08643-4) pO2, arterial corrected 269 mmHg (test code = 55230-3) Base excess, arterial -6 See_Comment L [Auto mated message] (test code = 1925-7) The [facility] tem which generated this result transmitted ref erence range: -2 - 2 m Eq/L. The reference r carole was not used to interpret this result as normal/abnor mal. Lab Interpretation (test Abnormal code = 74994-1) [facility] level, [id number] 19:31:00 Test Item Value Reference Range Interpretation Comments Glucose, syringe (test code = 93 mg/dL 65-99 2345-7) [facility]emoglobin, [id number] 19:31:00 Test Item Value Reference Range Interpretation Comments Hemoglobin, syringe (test code = 8.4 g/dL 12.0-16.0 L 718-7) Lab Interpretation (test code = Abnormal 09245-5) [facility] calcium, [id number] 19:31:00 Test Item Value Reference Range Interpretation Comments Ionized calcium, arterial (test 1.26 mmol/L 1.11-1.32 code = 86659-8) [facility] HospitalPotassium, [id number] 19:31:00 Test Item Value Reference Range Interpretation Comments Potassium, syringe (test 3.3 See_Comment L [A utomated message] code = 2007) The system [facility] h generated this result transmitted ref erence range: 3.5 - 5. 0 mEq/L. The refe rence range was not u sed to interpret this result as normal/abnor mal. Lab Interpretation (test Abnormal code = 46185-6) [facility] level, [id number] 19:31:00 Test Item Value Reference Range Interpretation Comments Sodium, syringe (test 141 See_Comment [Auto mated message] The code = 2947-0) system which generated this result tra nsmitted reference range : 125 - 148 mEq/L. The refe rence range was not used to interpret this result as normal/abnormal . [facility]ter[facility] blood gas, [id number] 19:31:00 Test Item Value Reference Range Interpretation Comments pH, arterial (test code 7.32 7.35-7.45 L = 2744-1) pCO2, arterial (test 37 See_Comment [Autom ated message] code = 2019-8) The system [facility] generated this result transmitted ref erence range: 35 - 45 mmHg. The reference r carole was not used to interpret this result as normal/abnor mal. pO2, arterial (test code 269 See_Comment H [A utomated message] = 2703-7) The system [facility] h generated this result transmitted ref erence range: 80 - 90 mmHg. The reference r carole was not used to interpret this result as normal/abnor mal. Temperature, Celsius 36.9 Degrees C (test code = 8310-5) O2 saturation, arterial 99 % 95-100 (test code = 2708-6) pH, arterial corrected 7.32 (test code = 27376-0) pCO2, arterial corrected 37 mmHg (test code = 75222-0) pO2, arterial corrected 269 mmHg (test code = 83796-7) Base excess, arterial -6 See_Comment L [Auto mated message] (test code = 1925-7) The sys tem which generated this result transmitted ref erence range: -2 - 2 m Eq/L. The reference r carole was not used to interpret this result as normal/abnor mal. Lab Interpretation (test Abnormal code = 41158-9) [facility]ucose level, [id number] 19:31:00 Test Item Value Reference Range Interpretation Comments Glucose, syringe (test code = 93 mg/dL 65-99 2345-7) [facility] HospitalHemoglobin, [id number] 19:31:00 Test Item Value Reference Range Interpretation Comments Hemoglobin, syringe (test code = 8.4 g/dL 12.0-16.0 L 718-7) Lab Interpretation (test code = Abnormal 17772-2) [facility] HospitalIonized calcium, [id number] 19:31:00 Test Item Value Reference Range Interpretation Comments Ionized calcium, arterial (test 1.26 mmol/L 1.11-1.32 code = 28848-4) [facility]assium, [id number] 19:31:00 Test Item Value Reference Range Interpretation Comments Potassium, syringe (test 3.3 See_Comment L [A utomated message] code = 2007) The system whic h generated this result transmitted ref erence range: 3.5 - 5. 0 mEq/L. The refe rence range was not u sed to interpret this result as normal/abnor mal. Lab Interpretation (test Abnormal code = 37451-2) [facility] Associationodium level, [id number] 19:31:00 Test Item Value Reference Range Interpretation Comments Sodium, syringe (test 141 See_Comment [Auto mated message] The code = 2947-0) system which generated this result tra nsmitted reference range : 125 - 148 mEq/L. The refe rence range was not used to interpret this result as normal/abnormal . [facility] HospitalActivated clotting [id number] 19:17:00 Test Item Value Reference Range Interpretation Comments Activated clotting time 243 See_Comment H Oper ator Name: Alberta (test code = 5298) Lara e ID: [id number] [Autom ated message] The sy stem which generated this result transmit rené reference range : 96 - 152 sec. The reference range was not used to int erpret this result as normal/abnormal . Lab Interpretation (test Abnormal code = 72313-1) [facility]anoAct[facility] clotting [id number] 19:17:00 Test Item Value Reference Range Interpretation Comments Activated clotting time 243 See_Comment H Oper ator Name: Alberta (test code = 5298) AjitDevic e ID: [id number] [Autom ated message] The sy stem which generated this result transmit rené reference range : 96 - 152 sec. The reference range was not used to int erpret this result as normal/abnormal . Lab Interpretation (test Abnormal code = 26872-5) [facility]anoECG 12 [id number] 18:55:31 Test Item Value Reference Range Interpretation Comments Ventricular rate (test 72 code = 253) Atrial rate (test code 72 = 255) FL interval (test code 134 = 266) QRSD [...] of 08-FEB-2021 16:46,-No significant change was found- [facility] AssociationARS-CoV-2 (COVID-19) RNA [Presence] in Respiratory specimen by VINH with probe [id number] 01:05:14 Test Item Value Reference Range Interpretation Comments SARS-CoV-2 (COVID-19) RNA Not detected [Presence] in Respiratory specimen by VINH with probe detection (test code = 39747-7) Whether patient is employed in a Unknown healthcare setting (test code = 16903-7) Whether the patient has symptoms Unknown related to condition of interest (test code = 53547-2) Whether the patient was Unknown hospitalized for condition of interest (test code = 50955-9) Whether the patient was admitted Unknown to intensive care unit (ICU) for condition of interest (test code = 00468-7) Whether patient resides in a Unknown congregate care setting (test code = 80717-1) status (test code = Unknown 47835-1) Date and time of symptom onset Unknown (test code = 23082-0) [facility] [id number] 12:13:00 Test Item Value Reference Range Interpretation Comments AFB culture No growth after Specimen isolate (test 6 weeks of InformationSpe cimen code = 543-9) incubation. Source: Tissue Specimen Site: Foot: Lef t Second toe culture OSVALDO (test code NO TISSUE SEEN = OSVALDO) IN SAMPLE RECEIVED [facility] HospitalFungus [id number] 12:15:00 Test Item Value Reference Range Interpretation Comments Fungus culture No growth after Specimen isolate (test 4 weeks of Informatione cimen code = 580-1) incubation. Source: Tissue Specimen Site: Foot: Lef t Second toe culture OSVALDO (test code NO TISSUE SEEN = OSVALDO) IN SAMPLE RECEIVED [facility]anoAnaerobic [id number] 12:50:00 Test Item Value Reference Range Interpretation Comments Anaerobic No anaerobic Specimen culture isolate organisms InformationS pecimen (test code = isolated. Source: TissueS pecimen 74605-2) Site: Foot: Lef t Second toe culture OSVALDO (test code NO TISSUE SEEN = OSVALDO) IN SAMPLE RECEIVED [facility] HospitalAerobic [id number] 11:00:00 Test Item Value Reference Range Interpretation Comments Aerobic No growth after Specimen culture 3 days. InformationSpec imen isolate (test Source: Tissue Specimen code = Site: Foot: Lef t Second 88842-3) toe culture OSVALDO (test code NO TISSUE SEEN = OSVALDO) IN SAMPLE RECEIVED [facility] Associationurgical pathology [id number] 19:57:33 Test Item Value Reference Range Interpretation Comments Case number (test code = [id number]) Surgical pathology See link below for report (test code = PDF Lab Report 2254) Result status (test code This is Final Report = [id number]) for [id number] [facility] Hospital[facility] [id number] 15:57:00 Test Item Value Reference Range Interpretation Comments Fungus smear No fungi Specimen (test code = observed. InformationSpec imen 1443) Source: TissueS pecimen Site: Foot: Lef t Second toe culture OSVALDO (test NO TISSUE SEEN code = OSVALDO) [facility] [id number] 13:14:00 Test Item Value Reference Range Interpretation Comments AFB stain No acid fast Specimen (test code = bacilli (AFB) InformationSpe taylaen 676-7) seen. Source: TissueS pecimen Site: Foot: Lef t Second toe culture OSVALDO (test NO TISSUE SEEN code = OSVALDO) IN SAMPLE RECEIVED [facility]anoGram [id number] 12:02:00 Test Item Value Reference Range Interpretation Comments Gram stain No WBC's or Specimen isolate (test organisms seen. Information Specimen code = 1469) Source: TissueS pecimen Site: Foot: Lef t Second toe culture OSVALDO (test code NO TISSUE SEEN = OSVALDO) [facility], (w Contrast, Strain and 3D if needed)2021-09-09 00:56:29 Test Item Value Reference Range Interpretation Comments Ao Root Diameter 2.63 cm (test code = 2452994968) AoV Area, Vmax (test 1.92 cm2 code = 4524809182) AoV Area, VTI (test 2.12 cm2 code = 7693072366) AoV Mean PG (test 6.98 mmHg code = 1878968074) AoV Peak PG (test 14.11 mmHg code = 1002335164) AoV Vmax (test code = 1.88 m/s 0808288606) AoV VTI (test code = 0.38 m 2555237564) IVS,d (test code = 0.82 cm 0.6-0.9 5667081320) IVS/LVPW,2D (test 1.02 code = 1029362413) Left Atrium Dimension 3.93 cm Anterior (test code = 3386736550) LV,d (test code = 4.38 cm 8296727465) LV EF,2D (test code = 77.17 % 3771476242) LV,s (test code = 2.68 cm 1132948800) LVOT area (test code 2.86 cm2 = 6630450101) LVOT Diam,S (test 1.91 cm code = 7922373651) LVOT Vmax (test code 1.26 m/s = 2262759440) LVOT VTI (test code = 0.28 m 8679197612) LVPWD,d (test code = 0.80 cm 0.6-0.9 5062828175) PV Pk Grad (test code 3.87 mmHg = 2096107045) PV VMAX (test code = 0.98 m/s 6208552738) RVOT Vmax (test code 0.71 m/s = 9920096133) RVSP (TR) (test code 52.25 mmHg = 7558513319) TR Vpeak (test code = 4.96 mm/s 8909333757) MV E A ratio (test 1.14 code = 6016334052) RA pressure (test 10.00 mmHg code = 7647394548) TR pk grad (test code 42.25 mmHg = 4741251628) MR Vmax (test code = 5.00 m/s 4735603730) E wave decelartion 199.14 msec time (test code = 9235441365) MV Peak A Tate (test 1.02 m/s code = 1882425123) MV valve area p 1/2 3.81 cm2 method (test code = 6709497803) MV Peak E Tate (test 1.17 m/s code = 8571016456) MV stenosis pressure 57.75 ms 1/2 time (test code = 7521257093) LVOT stroke volume 0.80 ml (test code = 7960101635) AV LVOT peak gradient 6.33 mmHg (test code = 3502371822) Ascending aorta (test 2.71 cm code = 4272135988) RVSP (test code = 52.25 mmHg 5835263814) Ao Root Diameter 2.63 cm (test code = 4707497127) MV mean gradient 2.70 mmHg (test code = 0249430288) LV SYS VOL (test code 26.47 ml 14-42 = 5719800819) LV WILSON VOL (test 86.82 ml 46-106 code = 6652725847) LA area s A4C (test 16.93 cm2 code = 5178685896) LV SV Teich 2D (test 60.35 ml code = 4983560271) LV Vol s Teich PSAX 26.47 ml (test code = 8090750125) MR peak grad (test 7.79 mmHg code = 6133494545) MV Vmax (test code = 1.40 m 0769463253) MV VTI Tips (test 0.41 m code = 9859933996) RVOT pk grad (test 2.04 mmHg code = 9075154947) AoV Vmn (test code = 1.24 m/s 5127511025) LV FS Teich 2D (test 38.88 code = 1888626248) MV AE ratio (test 0.87 code = 6929720573) LV FS Cube 2D (test 38.88 code = 3406903469) LVOT Vmn (test code = 0.74 2685520030) Aov area Vmn (test 1.72 cm2 code = 3041457625) LVOT mean grad (test 2.75 mmHg code = 6470415577) MAX Pred HR (test 151.21 code = 9582691517) 85 of MPHR (test code 128.53 = 9090334230) Calc MPHR (test code 151.21 bpm = 5720603049) LV SV Cube 2D (test 64.91 ml code = 4807869765) LV vol d cube 2D 84.11 ml (test code = 3661584927) LV vol s cube 2D 19.20 ml (test code = 3921468508) MV Decel slope (test 5.88 m/s2 code = 0169451872) Pred Exer Dur R1 6.95 (test code = 6455852006) Pred METS R1 (test 5.76 code = 4835359726) LA Vol MOD A4C (test 43.61 ml code = 9603817369) E sylvia sept (test 0.12 code = 3869064641) E prime lat (test 0.16 code = 2157863845) Velocity Ratio 0.67 m/s (V1/V2) (test code = 4689) EF (test code = 70 % 0451491347) E/A ratio (test code 1.15 = 1975168916) LVOT VTI (CM) (test 28.00 cm code = 1656917908) OSVALDO (test code = OSVALDO) Left Ventricle: [...] views were obtained. Patient exhibited sinus rhythm. [facility]ano[facility] [id number] 18:56:00 Test Item Value Reference Range Interpretation Comments Urine culture (test SEE COMMENT Bacteriu shelton screen code = 1109388) negative. [facility]ano[facility]inalysis screen and microscopy, with reflex to culture 2021-09-05 18:56:00 Test Item Value Reference Range Interpretation Comments Specimen site (test Catheterized code = 3763321) Color, UA (test code Yellow = 5778-6) Appearance, UA (test Clear code = 5767-9) Specific gravity, UA 1.011 1.001-1.030 (test code = 5811-5) pH, UA (test code = 6.0 5.0-9.0 5803-2) Protein, UA (test Negative Negative code = 68062-4) Glucose, UA (test Negative Negative code = 18089-6) Ketones, UA (test Negative Negative code = 2514-8) Bilirubin, UA (test Negative Negative code = 5770-3) Blood, UA (test code Negative Negative = 5794-3) Nitrite, UA (test Negative Negative code = 5802-4) Urobilinogen, UA <2.0 See_Comment [Automated message] (test code = The system [employer] h 98003-1) generated this result transmitted ref erence range: <2.0 E.U ./dL. The reference r carole was not used to interpret this result as normal/abnor mal. Leukocyte esterase, Negative Negative UA (test code = 5799-2) Epithelial cells, UA <1 See_Comment [Autom ated message] (test code = 5787-7) The sys tem which generated this result transmitted ref erence range: /HPF. Th e reference range was not used to int erpret this result as normal/abnormal . WBC, UA (test code = 1 See_Comment [Autom ated message] 5821-4) The system AMS Vari[employer] generated this result transmitted ref erence range: 0 - 4 /H PF. The reference r carole was not used to interpret this result as normal/abnor mal. RBC, UA (test code = 2 See_Comment [Autom ated message] 87272-8) The system AMS Vari[employer] generated this result transmitted ref erence range: 0 - 5 /H PF. The reference r carole was not used to interpret this result as normal/abnor mal. Bacteria, UA (test Few None seen code = 70472-9) Yeast, UA (test code None seen = 34714-4) Yeast with None seen pseudohyphae, UA (test code = 57028-6) [facility] [id number] 17:35:01 Test Item Value Reference Range Interpretation Comments POC sodium (test code = 145 mmol/L 336-468 5894-0) POC potassium (test 3.6 mmol/L 3.5-5.0 code = 6298-4) POC glucose (test code 87 mg/dL 65-99 = 2339-0) POC creatinine (test 0.8 mg/dl 0.5-0.9 Operato r Name: Marcio code = 33425-3) AileenDevice ID: [id number] POC hemoglobin (test 7.8 g/dL 12.0-16.0 L code = 718-7) POC hematocrit (test 23 % 37-47 L code = 4544-3) Lab Interpretation Abnormal (test code = 59356-9) [facility] RNA [Presence] in Respiratory specimen by VINH with probe [id number] 05:00:28 Test Item Value Reference Range Interpretation Comments SARS-CoV-2 (COVID-19) RNA Not detected [Presence] in Respiratory specimen by VINH with probe detection (test code = 56043-5) Whether patient is employed in a Unknown healthcare setting (test code = 99706-8) Whether the patient has symptoms Unknown related to condition of interest (test code = 00661-3) Whether the patient was Unknown hospitalized for condition of interest (test code = 68285-1) Whether the patient was admitted Unknown to intensive care unit (ICU) for condition of interest (test code = 73044-3) Whether patient resides in a Unknown congregate care setting (test code = 71914-0) status (test code = Unknown 10734-1) Date and time of symptom onset Unknown (test code = 45163-3) [facility]-CoV-2 (COVID-19) RNA [Presence] in Respiratory specimen by VINH with probe [id number] 11:16:10 Test Item Value Reference Range Interpretation Comments SARS-CoV-2 (COVID-19) RNA Not detected [Presence] in Respiratory specimen by VINH with probe detection (test code = 34129-0) Whether patient is employed in a Unknown healthcare setting (test code = 31777-8) Whether the patient has symptoms Unknown related to condition of interest (test code = 25494-9) Whether the patient was Unknown hospitalized for condition of interest (test code = 91293-8) Whether the patient was admitted Unknown to intensive care unit (ICU) for condition of interest (test code = 23485-4) Whether patient resides in a Unknown congregate care setting (test code = 91375-1) status (test code = Unknown 00177-9) Date and time of symptom onset Unknown (test code = 74943-3) [id number]-8 (COVID-19) RNA [Presence] in Respiratory specimen by VINH with probe [id number] 19:07:21 Test Item Value Reference Range Interpretation Comments SARS-CoV-2 (COVID-19) RNA Not detected Not-Detected [Presence] in Respiratory specimen by VINH with probe detection (test code = 31193-7) Whether patient is employed in a healthcare setting (test code = 60404-0) Whether the patient has symptoms related to condition of interest (test code = 66004-5) Patient was hospitalized because of this condition (test code = 06942-9) Whether the patient was admitted to intensive care unit (ICU) for condition of interest (test code = 96349-8) Whether patient resides in a congregate care setting (test code = 47349-7) [facility]
[2022-10-18 00:43] LABS: Absolute Lymphocytes (CBC) 2.8 K/uL (0.7-4.9); Hematocrit 36.3 % (36.0-45.0); Lymphocytes % 27.6 % (15.3-44.8); MCV 89.8 fL (80-100); MPV 7.7 fL (7.6-11.3); RBC Red Blood Cell Count 4.04 M/uL (3.86-4.86)
[2022-10-18] MEDS ORDERED: FENTANYL CITR 100 MCG/2 ML ONE (01:08)
[2022-10-18 02:51] LABS: Magnesium 2.2 mg/dL (1.6-2.4); Potassium 2.7 mEq/L (3.5-5.1)
[2022-10-18] MEDS ORDERED: POTASSIUM 25 MEQ EFFERV TAB ONE ×2 (03:57→12:31)
[2022-10-18] MEDS ORDERED: KCL 20 MEQ/100 mL IVPB 100 ML IV ONE (03:57)
[2022-10-18] MEDS ORDERED: NS KCL 20MEQ 1,000 ML IV ONE (03:57)
--- NOTE | 2022-10-18 04:01 | ER ---
Nurse's Notes [facility] Name: Rian Merlos Age: 71 yrs Sex: Female : 1950 Arrival Date: 10/17/2022 Time: 21:31 Bed 18 Private MD: Diagnosis: Chest pain, unspecified;Angina pectoris, unspecified;Hypokalemia;[facility] (current) use of anticoagulants-xarelto Presentation: 10/17 22:05 Chief complaint: Patient states: Dr. Ybarra nurse called me and told me i needed to come lg3 in because my potassium is low. i asked them if it could wait until the morning and they told me that i needed t come immediately. complaints of abdominal and back pain. Coronavirus screen: Client denies travel out of the [place] in the last 14 days. At this time, the client does not indicate any symptoms associated with coronavirus-19. Ebola Screen: No symptoms or risks identified at this time. Initial Sepsis Screen: Does the patient meet any 2 criteria? No. Patient's initial sepsis screen is negative. Does the patient have a suspected source of infection? No. Patient's initial sepsis screen is negative. Risk Assessment: Do you want to hurt yourself or someone else? Patient reports no desire to harm self or others. Onset of symptoms was October 17, 2022. 22:05 Method Of Arrival: Ambulatory lg3 22:05 Acuity: GEOVANNA 3 lg3 Triage Assessment: 22:07 General: Appears in no apparent distress. uncomfortable, Behavior is calm, cooperative. lg3 Pain: Complains of pain in back and abdomen. EENT: No deficits noted. No signs and/or symptoms were reported regarding the EENT system. Neuro: No deficits noted. Cox Agitation-Sedation Scale (RASS): 0 - Alert and Calm Level of Consciousness is awake, alert, obeys commands, Oriented to person, place, time, situation. Cardiovascular: No deficits noted. Respiratory: No deficits noted. Airway is patent Respiratory effort is even, unlabored, Respiratory pattern is regular, symmetrical. GI: No deficits noted. Abdomen is flat, non-distended, Reports lower abdominal pain, upper abdominal pain, nausea. : No deficits noted. No signs and/or symptoms were reported regarding the genitourinary system. Derm: No deficits noted. No signs and/or symptoms reported regarding the dermatologic system. Skin is intact, is healthy with good turgor, Skin is dry, Skin is normal, Skin temperature is warm. Musculoskeletal: No deficits noted. No signs and/or symptoms reported regarding the musculoskeletal system. Circulation, motion, and sensation intact. Range of motion: intact in all extremities. Historical: - Allergies: 22:07 Morphine; lg3 - Home Meds: 22:07 Plavix 75 mg Oral tab 1 tab once daily [Active]; amlodipine oral [Active]; pregabalin lg3 Oral [Active]; Xarelto oral [Active]; olmesartan oral [Active]; - PMHx: 22:07 DVT; Hyperlipidemia; Hypertension; Myocardial infarction; lg3 - PSHx: :07 stents leg, 1 heart stent; lg3 - Immunization history:: Adult Immunizations up to date, Client reports receiving the 2nd dose of the Covid vaccine. - Social history:: Smoking status: Patient/guardian denies using tobacco, Stopped _ months ago 3 Patient/guardian denies using alcohol, street drugs. Screenin/02 01:05 [facility] ED Fall Risk Assessment (Adult) History of falling in the last 3 months, kl including since admission No falls in past 3 months (0 pts) Confusion or Disorientation No (0 pts) Intoxicated or Sedated No (0 pts) Impaired Gait No (0 pts) Mobility Assist Device Used No (0 pt) Altered Elimination No (0 pt) Score/Fall Risk Level 0 - 2 = Low Risk Oriented to surroundings, Maintained a safe environment. Abuse screen: Denies threats or abuse. Nutritional screening: No deficits noted. Tuberculosis screening: No symptoms or risk factors identified. Assessment: 01:06 Reassessment: Patient appears in no apparent distress at this time. Patient and/or kl family updated on plan of care and expected duration. Pain level reassessed. Patient is alert, oriented x 3, equal unlabored respirations, skin warm/dry/pink. 01:06 Cardiovascular: Rhythm is sinus rhythm. 08:23 Reassessment: Patient appears in no apparent distress at this time. Patient and/or db family updated on plan of care and expected duration. Pain level reassessed. Patient is alert, oriented x 3, equal unlabored respirations, skin warm/dry/pink. Patient ambulatory back to room. Vital Signs: 10/17 22:05 BP 138 / 74; Pulse 74; Resp 17 S; Temp 98(O); Pulse Ox 99% on R/A; Weight 48.08 kg (R); lg3 Height 5 ft. 3 in. (R); 10/18 01:06 BP 128 / 48; Pulse 65; Resp 18; Pulse Ox 100% on R/A; kl 10/17 22:05 Body Mass Index 18.78 (48.08 kg, 160.02 cm) lg3 ED Course: 10/17 21:32 Patient arrived in ED. ag3 22:07 Triage completed. lg3 22:07 Arm band placed on right wrist. lg3 22:48 Julio C Scanlon PA is PHCP. cp 22:48 Julio C Hunter MD is Attending Physician. cp 10/18 00:50 XRAY Chest (1 view) In Process Unspecified. EDMS 00:50 Inserted saline lock: 22 gauge in left antecubital area, using aseptic technique. Blood kl collected. 00:59 Basic Metabolic Panel Sent. kl 00:59 Magnesium Sent. kl 00:59 NT PRO-BNP Sent. kl 00:59 Troponin HS Sent. kl 01:05 Patient has correct armband on for positive identification. Placed in gown. Bed in low kl position. Call light in reach. Side rails up X2. 02:06 Lab(s) recollected, by me, sent to lab. wm 03:59 Darryl Vaz MD is Hospitalizing Provider. [facility] 06:27 No provider procedures requiring assistance completed. Patient admitted, IV remains in kl place. 08:14 Sujata Roman, RN is Primary Nurse. db Administered Medications: 01:05 Drug: fentaNYL (PF) IVP 25 mcg Route: IVP; Site: left antecubital; kl 03:30 Not Given (Other Intervention Used): NS 0.9% IV 500 ml IV at 500 ml/hr continuous kl 04:10 Drug: NS 0.9% with KCl IV 20 mEq/L 1000 ml Route: IV; Rate: 125 ml/hr; Site: left kl antecubital; 04:10 Drug: Potassium Chloride IV 20 mEq Route: IV; Rate: per protocol; Site: left kl antecubital; 04:14 Drug: Potassium PO Effervescent Tablet 50 mEq Route: PO; kl Medication: 08:24 VIS not applicable for this client. db Outcome: 04:00 Decision to Hospitalize by Provider. shaye 06:27 Admitted to ER Hold. Please see [facility] for further documentation. kl 08:23 Condition: stable db 08:23 Instructed on the need for admit. db 12:49 Patient left the ED. db Signatures: Dispatcher [employer] EDYisel Stewart, RN RN Julio C Lopez MD MD cha Page, Corey, PA PA cp Gomez, Alice 3 Gabby Nielsen, RADHA RN 3 Lila Feliciano Danielle RN RN db
--- NOTE | 2022-10-18 04:01 | EDPHYS ---
Physician Documentation [facility] Name: Rian Merlos Age: 71 yrs Sex: Female : 1950 Arrival Date: 10/17/2022 Time: 21:31 Bed 18 Private MD: ED Physician Julio C Hunter HPI: 10/17 23:10 This 71 yrs old Female presents to ER via Ambulatory with complaints of Abnormal Lab cp Results, PROVIDER CALLD LOW POTASSIUM. 23:10 low potassium. cp 23:10 Onset: The symptoms/episode began/occurred at an unknown time. cp 23:10 Severity of symptoms: in the emergency department the symptoms are unchanged. cp 23:10 Patient c/o back, chest, and abdomen pain. cp Historical: - Allergies: 22:07 Morphine; lg3 - Home Meds: 22:07 Plavix 75 mg Oral tab 1 tab once daily [Active]; amlodipine oral [Active]; pregabalin lg3 Oral [Active]; Xarelto oral [Active]; olmesartan oral [Active]; - PMHx: 22:07 DVT; Hyperlipidemia; Hypertension; Myocardial infarction; lg3 - PSHx: 22:07 stents leg, 1 heart stent; lg3 - Immunization history:: Adult Immunizations up to date, Client reports receiving the 2nd dose of the Covid vaccine. - Social history:: Smoking status: Patient/guardian denies using tobacco, Stopped _ months ago 3 Patient/guardian denies using alcohol, street drugs. ROS: 23:15 Constitutional: Negative for body aches, chills, fever. cp 23:15 Eyes: Negative for injury, pain, redness, and discharge. cp 23:15 Cardiovascular: Positive for chest pain, Negative for edema, palpitations. 23:15 Respiratory: Negative for cough, shortness of breath, wheezing. 23:15 Abdomen/GI: Positive for abdominal pain, Negative for vomiting, diarrhea, constipation, black/tarry stool, rectal bleeding. 23:15 Back: Positive for pain at rest, pain with movement. 23:15 Neuro: Negative for altered mental status, dizziness, headache, weakness. 23:15 All other systems are negative. Exam: 23:20 Constitutional: The patient appears in no acute distress, alert, awake, cp non-diaphoretic, non-toxic, well developed, frail. 23:20 Head/Face: Normocephalic, atraumatic. cp 23:20 Eyes: Periorbital structures: appear normal, Conjunctiva: normal, no exudate, no injection, Sclera: no appreciated abnormality, Lids and lashes: appear normal, bilaterally. 23:20 ENT: External ear(s): are unremarkable, Nose: is normal, Mouth: Lips: dry, Oral mucosa: pink and intact, moist, Posterior pharynx: Airway: no evidence of obstruction, patent. 23:20 Neck: ROM/movement: is normal, is supple, without pain, no range of motions limitations. 23:20 Chest/axilla: Inspection: normal, Palpation: is normal, no crepitus, no tenderness. 23:20 Cardiovascular: Rate: normal, Rhythm: regular, Edema: is not appreciated, JVD: is not appreciated. 23:20 Respiratory: the patient does not display signs of respiratory distress, Respirations: normal, no use of accessory muscles, no retractions, labored breathing, is not present, Breath sounds: are clear throughout, no decreased breath sounds, no stridor, no wheezing. 23:20 Abdomen/GI: Inspection: abdomen appears normal, Bowel sounds: active, all quadrants, Palpation: soft, in all quadrants, nontender, in all quadrants. 23:20 Back: pain, that is moderate, ROM is painful, with all movement. 23:20 Skin: no rash present. 23:20 Neuro: Orientation: to person, place \T\ time. Mentation: is normal, Motor: moves all fours, strength is normal. 10/18 00:55 ECG was reviewed by the Attending Physician. cp Vital Signs: 10/17 22:05 BP 138 / 74; Pulse 74; Resp 17 S; Temp 98(O); Pulse Ox 99% on R/A; Weight 48.08 kg (R); lg3 Height 5 ft. 3 in. (R); 10/18 01:06 BP 128 / 48; Pulse 65; Resp 18; Pulse Ox 100% on R/A; kl 10/17 22:05 Body Mass Index 18.78 (48.08 kg, 160.02 cm) lg3 MDM: 10/17 23:05 Patient medically screened. cp 10/18 01:00 Differential Diagnosis sepsis, flu. cp 02:20 Care significantly affected by the following chronic conditions: Hypertension. cp Transition of care: After a detail discussion of the patient's case, care is transferred to Julio C Hunter MD. 02:20 Awaiting: labs results. cp 04:01 Differential diagnosis: abnormal EKG, acute myocardial infarction, acute pericarditis, shaye anxiety, coronary artery disease chest wall pain, esophagitis, hiatal hernia, pancreatitis, peptic ulcer disease, pulmonary embolus, stable angina, thoracic aortic disection, unstable angina. HEART Score: History: Slightly Suspicious (0), ECG: Non specific repolarization disturbance / LBTB / PM (1), Age: > or = 65 years (2), Risk Factors: > or = 3 Risk factors for atherosclerotic disease (2), [Hypercholesterolemia] [Hypertension] [+ Family HX] Troponin: < or = 1 x Normal Limit (0). The patient was not given aspirin in the Emergency Department. Not indicated due to patient's past medical history. NATALYA Risk Score: 1 - patient's age is greater or equal to 65 years, 1 - Three or more CAD risk factors, 1- Known CAD, TOTAL SCORE = 3. Data reviewed: vital signs, nurses notes, lab test result(s), EKG, radiologic studies, plain films. Consideration of Admission/Observation Escalation of care including admission/observation considered. I considered the following discharge prescriptions or medication management in the emergency department Medications were administered in the Emergency Department. See MAR. Test considered but Not performed: CT: no ct dissection. Counseling: I had a detailed discussion with the patient and/or guardian regarding: the historical points, exam findings, and any diagnostic results supporting the discharge/admit diagnosis, lab results, radiology results, the need for further work-up and treatment in the hospital. 10/17 23:06 Order name: Basic Metabolic Panel; Complete Time: 04:19 cp 10/17 23:06 Order name: CBC with Diff; Complete Time: 01:33 cp 10/18 01:33 Interpretation: Reviewed. cp 10/17 23:06 Order name: Magnesium; Complete Time: 04:19 cp 10/17 23:06 Order name: NT PRO-BNP; Complete Time: 04:19 cp 10/17 23:06 Order name: Troponin HS; Complete Time: 04:19 cp 10/18 03:59 Order name: Phosphorus; Complete Time: 04:19 EDMS 06/02 07:39 Order name: Basic Metabolic Panel EDNV 10/18 07:39 Order name: Troponin High Sensitivity EDNV 10/17 23:06 Order name: XRAY Chest (1 view) 10/17 23:06 Order name: EKG; Complete Time: 23:07 cp 10/17 23:06 Order name: Cardiac monitoring; Complete Time: 00:58 cp 10/17 23:06 Order name: EKG - Nurse/Tech; Complete Time: 00:58 cp 10/17 23:06 Order name: IV Saline Lock; Complete Time: 00:58 cp 10/17 23:06 Order name: Labs collected and sent; Complete Time: 00:58 cp 10/17 23:06 Order name: O2 Per Protocol; Complete Time: 00:59 cp 10/17 23:06 Order name: O2 Sat Monitoring; Complete Time: 00:59 cp 10/18 00:52 Order name: Misc. Order: Recollect GREEN TOP; Complete Time: 02:14 rv1 EC:55 Rate is 59 beats/min. Rhythm is regular. MO interval is normal. QRS interval is normal. cp QT interval is normal. T waves are Inverted in lead aVR. Interpreted by me. Reviewed by me. Administered Medications: 01:05 Drug: fentaNYL (PF) IVP 25 mcg Route: IVP; Site: left antecubital; 03:30 Not Given (Other Intervention Used): NS 0.9% IV 500 ml IV at 500 ml/hr continuous kl 04:10 Drug: NS 0.9% with KCl IV 20 mEq/L 1000 ml Route: IV; Rate: 125 ml/hr; Site: left kl antecubital; 04:10 Drug: Potassium Chloride IV 20 mEq Route: IV; Rate: per protocol; Site: left kl antecubital; 04:14 Drug: Potassium PO Effervescent Tablet 50 mEq Route: PO; kl Disposition: 04:03 Co-signature as Attending Physician, Julio C Hunter MD I agree with the assessment and shaye plan of care. Disposition Summary: 10/18/22 04:00 Hospitalization Ordered Hospitalization Status: Observation shaye Provider: Darryl Vaz cha Condition: Fair shaye Problem: new shaye Symptoms: have improved shaye Bed/Room Type: Standard shaye Location: [facility] ER HOLD(10/18/22 04:01) mw Room Assignment: ERHOLD-(10/18/22 04:01) mw Diagnosis - Chest pain, unspecified shaye - Angina pectoris, unspecified shaye - Hypokalemia shaye - USP (current) use of anticoagulants - xarelto shaye Forms: - Medication Reconciliation Form shaye - SBAR form shaye Signatures: Dispatcher [employer] EDYisel Stewart RN RN kl Webb, Martha RN Julio C Ghosh MD MD cha Page, Corey, PA PA cp Gibson, Lacie, RN RN lg3 Judy Camilo PA-C PA-C sb4 Rizwana Huber rv1 Corrections: (The following items were deleted from the chart) 03:59 03:14 PHOSPHORUS+C.LAB.BRZ ordered. EDNV EDNV 04:01 04:00 Telemetry/MedSurg (observation) shaye 04:01 04:00 shaye
--- NOTE | 2022-10-18 04:24 | P.HP ---
Certification for Inpatient Patient admitted to: Observation With expected LOS: <2 Midnights Patient will require the following post-hospital care: None Practitioner: I am a practitioner with admitting privileges, knowledge of patient current condition, hospital course, and medical plan of care. Services: Services provided to patient in accordance with Admission requirements found in Title 42 Section 412.3 of the Code of Federal Regulations Patient History Date of Service: 10/18/22 Primary Care Provider: Yonis Reason for admission: Hypokalemia History of Present Illness: Ms. Merlos is a 71-year-old female with past medical history of hypertension, hyperlipidemia, peripheral vascular disease, coronary artery disease, DVT on Xarelto who presented to the emergency department with low potassium. Patient had lab work done a few days ago and she was notified today that her potassium was low and that she needed to come to the ER. While in the ER, she did endorse some chest, shoulder, abdominal, and leg pain. BMP significant for potassium of 2.7, chloride 108, BUN 30, creatinine 1.37, GFR 42. EKG without any acute chaney ges. In the emergency department, she was given 40 mg equivalents of IV potassium and 50 mEq of p.o. potassium. Given her hypokalemia, chest pain, and cardiac history. ED provider wishes admit patient for observation. Allergies morphine Adverse Reaction (Verified 04/22/14 19:43) Itching Home medications list reviewed: Yes Home Medications: Aspirin [Aspirin EC] 81 mg PO DAILY #30 tablet. 04/27/14 Clopidogrel Bisulfate [Plavix] 75 mg PO DAILY #30 tablet 04/27/14 Metoprolol Succinate [Toprol Xl*] 50 mg PO DAILY #30 tab 04/27/14 Simvastatin [Zocor] 20 mg PO BEDTIME #30 tablet 04/27/14 - Past Medical/Surgical History Diabetic: No -: Hypertension -: TIA -: PAD -: Coronary Artery Disease -: DVT -: titanium plate in neck -: knee surgery -: hysterectomy -: peripheral angioplasty Psychosocial/ Personal History: Patient lives at home with her family. - Family History Family History: Reviewed- Non-Contributory - Social History Smoking Status: Former smoker Alcohol use: No CD- Drugs: No Caffeine use: No Place of Residence: Home Review of Systems Cardiovascular: Chest Pain Musculoskeletal: Shoulder Pain, Back Pain, Leg Pain Physical Examination - Vital Signs Temperature: 98 F Blood Pressure: 128/48 Pulse: 65 Respirations: 18 Pulse Ox (%): 100 - Physical Exam General: Alert, In no apparent distress HEENT: Atraumatic, EOMI, Sclerae nonicteric Neck: Supple, 2+ carotid pulse no bruit Respiratory: Clear to auscultation bilaterally, Normal air movement Cardiovascular: Regular rate/rhythm, Normal S1 S2 Gastrointestinal: Normal bowel sounds, No tenderness Musculoskeletal: No tenderness Integumentary: No rashes Neurological: Normal speech, Normal affect - Studies Laboratory Data (last 24 hrs) 10/18/22 03:14: Phosphorus Cancelled 10/18/22 02:06: Sodium 137, Potassium 2.7 L, BUN 30 H, Creatinine 1.37 H, Glucose 92, Phosphorus 4.0, Magnesium 2.2 10/18/22 00:30: WBC 10.10, Hgb 12.2, Hct 36.3, Plt Count 340 Assessment and Plan - Problems (Diagnosis) (1) Hypokalemia Current Visit: Yes Status: Acute (2) Peripheral vascular disease Current Visit: Yes Status: Chronic (3) Coronary artery disease Current Visit: Yes Status: Chronic Qualifiers: Coronary Disease-Associated Artery/Lesion type: [place] artery [place] vs. transplanted heart: [place] heart Associated angina: without angina Qualified Code(s): I25.10 - Atherosclerotic heart disease of [place] coronary artery without angina pectoris (4) Hypertension Current Visit: Yes Status: Chronic Qualifiers: Hypertension type: primary hypertension Qualified Code(s): I10 - Essential (primary) hypertension (5) Hyperlipidemia Current Visit: Yes Status: Chronic Qualifiers: Hyperlipidemia type: unspecified Qualified Code(s): E78.5 - Hyperlipidemia, unspecified - Plan Patient is admitted for further management of hypokalemia and chest pain. Potassium is 2.7. She was given 50 p.o. potassium and is receiving 40 IV right now. Recheck BMP in 2 hours as well as troponin. She denies any history of hypokalemia, recent nausea/vomiting, or diuretics. Patient reports vague chest pain, but she also reports pain everywhere else around her body. I suspect moreso chronic. Anticipate dispo discharge later this morning. Discharge Plan: Home Plan to discharge in: 24 Hours - Advance Directives Does patient have a Living Will: No Does patient have a Durable POA for Healthcare: No - Code Status/Comfort Care Code Status Assessed: Yes Code Status: Full Code Physician Review: Patient Assessed, Agree with Above Assessment and Plan Critical Care: No Time Spent Managing Pts Care (In Minutes): 50
[2022-10-18 04:30] VITALS: TEMP 98
[2022-10-18] MEDS ORDERED: ACETAMINOPHEN 500 MG TAB PO PRN (05:23)
[2022-10-18] MEDS ORDERED: ONDANSETRON 4 MG/2 ML VIAL IV PRN (05:23)
[2022-10-18 06:24] VITALS: BMI 18.7
[2022-10-18 07:35] LABS: Potassium 3.4 mEq/L (3.5-5.1); Troponin High Sensitivity 12.5 pg/mL (<58.9)
[2022-10-18] MEDS ORDERED: POTASSIUM 25 MEQ EFFERV TAB PO ONE (11:45)
--- NOTE | 2022-10-18 11:49 | P.DS ---
Admission Date: 10/18/22 Discharge Date: 10/18/22 Primary Care Provider: Yonis Disposition: ROUTINE DISCHARGE Discharge Condition: GOOD Reason for Admission: Hypokalemia Brief History of Present Illness: 71-year-old female patient admitted for management of hypokalemia. She has history of CKD stage III, hypertension, hyperlipidemia, diabetes type 2 and was found to have severe hypokalemia 2.7. She was asked to be admitted for overnight observation and potassium repletion. Hospital Course: On overnight admission she improved significantly with IV fluid hypertension ablation by mouth. She had administered repletion and potassium improved to 3.4. Her creatinine also improved. She was observed for discharge to discharge and follow-up with outpatient kidney doctor/primary care for routine posthospital discharge care. Vital Signs/Physical Exam: Temp Pulse Resp BP Pulse Ox 98 F 56 18 126/62 96 10/18/22 08:00 10/18/22 08:00 10/18/22 08:00 10/18/22 08:00 10/18/22 08:00 General: Alert HEENT: Atraumatic, Normocephalic Neck: Supple Respiratory: Normal air movement Cardiovascular: Regular rate/rhythm, Normal S1 S2 Gastrointestinal: Soft and benign Neurological: Normal speech Laboratory Data at Discharge: WBC 10.10 thou/uL (4.3-10.9) 10/18/22 00:30 Hgb 12.2 g/dL (12.0-15.0) 10/18/22 00:30 Hct 36.3 % (36.0-45.0) 10/18/22 00:30 Plt Count 340 thou/uL (152-406) 10/18/22 00:30 Sodium 142 mEq/L (136-145) D 10/18/22 06:53 Potassium 3.4 mEq/L (3.5-5.1) L D 10/18/22 06:53 BUN 24 mg/dL (7-18) H 10/18/22 06:53 Creatinine 1.07 mg/dL (0.55-1.02) H 10/18/22 06:53 Glucose 111 mg/dL (74-106) H 10/18/22 06:53 Phosphorus Cancelled 10/18/22 03:14 Magnesium 2.2 mg/dL (1.6-2.4) 10/18/22 02:06 Home Medications: Aspirin [Aspirin EC 81 MG] 81 mg PO DAILY #30 tablet. 04/27/14 Clopidogrel Bisulfate [Plavix*] 75 mg PO DAILY #30 tablet 04/27/14 Metoprolol Succinate [Toprol Xl*] 50 mg PO DAILY #30 tab 04/27/14 Simvastatin [Zocor*] 20 mg PO BEDTIME #30 tablet 04/27/14 Amlodipine [Norvasc*] 10 mg PO DAILY 10/18/22 Clopidogrel Bisulfate [Plavix] 75 mg PO DAILY 10/18/22 clonazePAM [Klonopin] 0.5 mg PO BEDTIME 10/18/22 Diet: [facility] Followup: Tristen Somers, [Primary Care Provider] -
[2022-10-18 12:58] VITALS: BP 128/48; O2SAT 100
--- NOTE | 2022-10-18 13:39 | RAD REPORT ---
EXAM DESCRIPTION: RAD - Chest Single View - 10/18/2022 12:48 am CLINICAL HISTORY: The patient is 71 years old and is Female; back pain TECHNIQUE: Frontal view of the chest. COMPARISON: No relevant prior studies available. FINDINGS: Lungs: Patchy opacity in the left costophrenic angle which may be due to atelectasis or airspace disease. Pleural space: Blunting of the left costophrenic angle which may indicate left pleural effusion. No pneumothorax. Heart: Unremarkable. Mediastinum: Unremarkable. Bones/joints: Partially visualized postsurgical changes in the cervical spine. Vasculature: Aortic calcification. IMPRESSION: 1. Patchy opacity in the left costophrenic angle which may be due to atelectasis or ai rspace disease. 2. Blunting of the left costophrenic angle which may indicate left pleural effusion. Electronically signed by: Fredrick Villeda MD 10/18/2022 1:09 AM CDT Due to temporary technical issues with the PACS/Fluency reporting system, reports are being signed by the in house radiologist without review as a courtesy to ensure prompt reporting. The interpreting r adiologist is fully responsible for the content of the report.
--- NOTE | 2022-10-18 13:46 | EKG ---
Test Date: 2022-10-18 Test Time: 00:48:15 Master Chef: ELKIN MEASUREMENT RESULTS: Intervals: Rate: 59 [place]: 138 QRSD: 90 QT: 434 QTc: 429 [place]: P: 64 [place]: 138 QRS: 56 T: 69 INTERPRETIVE STATEMENTS: Sinus bradycardia Nonspecific ST and T wave abnormality Abnormal ECG Compared to ECG 06/29/2021 15:19:54 ST (T wave) deviation now present Sinus rhythm no longer present Short [place] interval no longer present Electronically Signed On 10-18-22 13:44:55 CDT by Preston Madison
[2022-10-18] MEDS ORDERED: PROMETHAZINE 12.5 MG/SUPP PR ONE (17:55)
== END 2022-10-18 13:00 | disposition home or self-care (01) ==
LOC: ER 21:31 → ERHOLD 10-18 05:02
PROVIDERS: ADMIT Internal Medicine Nephrology; ATTEND Internal Medicine Nephrology
DX: E87.6 Hypokalemia (principal); N18.30 Chronic kidney disease, stage 3 unspecified; I82.409 Acute embolism and thrombosis of unspecified deep veins of unspecified lower extremity; I10 Essential (primary) hypertension; E78.5 Hyperlipidemia, unspecified; I73.9 Peripheral vascular disease, unspecified; I25.10 Atherosclerotic heart disease of native coronary artery without angina pectoris; Z88.6 Allergy status to analgesic agent; Z79.01 Long term (current) use of anticoagulants
CPT/HCPCS: 93005; 85025; 80048 ×2; 36415; 83735; 84100; 84484 ×2; 83880; 71045; 96375; 96374; 99285; J3480 ×2; J3010; G0378 ×2

== ENCOUNTER → 2023-06-13 | Emergency (ER) | payer MEDICARE ==
[~2023-06-13] MED LIST: FENTANYL CITR 100 MCG/2 ML ONE; HEPARIN/D5W 25,000 UNIT/500 ML BAG IV ONE; HYDROMORPHONE HCL 0.5 MG/0.5 ML INJ ONE; ONDANSETRON 4 MG/2 ML VIAL ONE
--- NOTE | 2023-06-13 03:21 | ER ---
Nurse's Notes [facility] Name: Rian Merlos Age: 72 yrs Sex: Female : 1950 Arrival Date: 06/13/2023 Time: 00:09 Bed 12 Private MD: Diagnosis: Peripheral vascular disease, unspecified; Occlusion of Left Superficial Femoral Artery Presentation: 06/13 00:42 Chief complaint: Patient states: I have been having pain in my left foot since jb20 January. It has been getting worse and I can hardly walk on it. Coronavirus screen: At this time, the client does not indicate any symptoms associated with coronavirus-19. Ebola Screen: No symptoms or risks identified at this time. Initial Sepsis Screen: Does the patient meet any 2 criteria? No. Patient's initial sepsis screen is negative. Does the patient have a suspected source of infection? No. Patient's initial sepsis screen is negative. Risk Assessment: Do you want to hurt yourself or someone else? Patient reports no desire to harm self or others. Onset of symptoms was January 17, 2023. Transition of care: patient was not received from another setting of care. 00:42 Method Of Arrival: Wheelchair jb4 00:42 Acuity: GEOVANNA 3 jb4 Historical: - Allergies: 00:45 Morphine; jb4 - PMHx: 00:45 Hyperlipidemia; Hypertension; Myocardial infarction; DVT; jb4 - PSHx: 00:45 stents leg; jb4 - Immunization history:: Adult Immunizations up to date. - Social history:: Smoking status: Patient/guardian denies using tobacco, the patient reports quitting approximately 1 years ago. Assessment: 01:00 General: Appears in no apparent distress. uncomfortable, Behavior is calm. Pain: jb4 Complains of pain in left foot Pain does not radiate. Pain currently is 10 out of 10 on a pain scale. Neuro: Level of Consciousness is awake, Oriented to person, place, time, situation. Cardiovascular: Patient's skin is warm and dry. Respiratory: Airway is patent Respiratory effort is even, unlabored, Respiratory pattern is regular, symmetrical. GI: No signs and/or symptoms were reported involving the gastrointestinal system. : No signs and/or symptoms were reported regarding the genitourinary system. EENT: No signs and/or symptoms were reported regarding the EENT system. Derm: Skin is intact, Skin is pink, warm \T\ dry. Musculoskeletal: Circulation, motion, and sensation intact. Range of motion: intact in all extremities. 02:00 Reassessment: Patient appears in no apparent distress at this time. Patient and/or jb4 family updated on plan of care and expected duration. Pain level reassessed. Patient is alert, oriented x 3, equal unlabored respirations, skin warm/dry/pink. 03:00 Reassessment: Patient appears in no apparent distress at this time. Patient and/or jb4 family updated on plan of care and expected duration. Pain level reassessed. Patient is alert, oriented x 3, equal unlabored respirations, skin warm/dry/pink. 04:08 Reassessment: Patient appears in no apparent distress at this time. Patient and/or jb4 family updated on plan of care and expected duration. Pain level reassessed. Patient is alert, oriented x 3, equal unlabored respirations, skin warm/dry/pink. 05:10 Reassessment: Pt remains in ultrasound. Instructed to continue holding heparin drip jb4 pending Ultrasound Results. 05:27 Reassessment: ER provider instructed this nurse to continue holding Heparin drip. jb4 Cardiovascular: Pulses are 1+ in left posterior tibial artery and left dorsalis pedis artery Pulse site marked. 06:02 Reassessment: Patient appears in no apparent distress at this time. Patient and/or jb4 family updated on plan of care and expected duration. Pain level reassessed. Patient is alert, oriented x 3, equal unlabored respirations, skin warm/dry/pink. 07:30 Reassessment: Patient appears in no apparent distress at this time. Patient and/or hb family updated on plan of care and expected duration. Pain level reassessed. Patient is alert, oriented x 3, equal unlabored respirations, skin warm/dry/pink. Vital Signs: 00:42 BP 188 / 72; Pulse 79; Resp 16; Temp 97.7; Pulse Ox 97% on R/A; Weight 48.08 kg (R); jb4 Height 5 ft. 3 in. (R); 02:30 BP 149 / 116; Pulse 66; Resp 16; Pulse Ox 99% on R/A; jb4 04:00 BP 177 / 107; Pulse 61; Resp 16; Pulse Ox 99% ; jb4 05:48 Weight 47.6 kg (M); jb4 06:02 BP 142 / 116; Pulse 60; Resp 16; Pulse Ox 100% on R/A; jb4 07:30 BP 146 / 96; Pulse 61; Resp 16; Pulse Ox 99% on R/A; Pain 9/10; hb 00:42 Body Mass Index 18.78 (47.60 kg, 160.02 cm) jb4 07:30 Pain Scale: Adult hb ED Course: 00:24 Patient arrived in ED. gm2 00:35 Julio C Scanlon PA is PHCP. cp 00:35 Prabhjot Foreman MD is Attending Physician. cp 00:45 Triage completed. jb4 00:45 Arm band placed on right wrist. jb4 01:27 XRAY Foot LEFT 3 View In Process Unspecified. EDMS 01:55 US Extremity Venous Unilateral Ltd In Process Unspecified. EDMS 01:55 US Lower Extremity Artery Uni Ltd In Process Unspecified. EDMS 03:30 contacted [facility] - spoke with veda. told no med surg beds were available and [facility] doesn't have vascular. 03:45 contacted [facility], was asked what bed i needed, then told no beds were available at [facility] and [facility]. 03:54 contacted [facility] spoke with latasha, doc to doc was requested on the phone, Riley spoke [facility] with md regarding pt. MD requested another test be done for the pt. 06:02 contacted [facility], spoke with phil. doc to doc was done \T\[id number]. pt to go to [facility] ER. Number for nurse to nurse report is [phone]. Accepting ER Jorge Luis Cabrera with [employer] consult Boone Pryor \T\[id number]. Admin approval given by Harshil Johnson \T\ 0525. Administered Medications: 02:05 Drug: fentaNYL (PF) IM 25 mcg IM once Route: IM; Site: right gluteus; jb4 04:24 Drug: Ondansetron IVP 4 mg IVP once; over 2 minutes Route: IVP; Site: right antecubital;jb4 04:24 Drug: fentaNYL (PF) IVP 25 mcg IVP once Route: IVP; Site: right antecubital; jb4 06:01 Drug: Heparin (DVT/PE Drip) 18 units/kg/hr - ([place] [address] units, D5W IV 500 ml) IV jb4 at calculated rate Per protocol; Max initial rate 1800 units/hr {Co-Signature: jw7 (Jhoana Núñez RN).} Route: IV; Rate: calculated rate; Site: right antecubital; 07:30 Drug: HYDROmorphone IVP 0.5 mg IVP once Route: IVP; Site: right antecubital; Outcome: 03:20 ER care complete, transfer ordered by . cp 07:31 Patient left the ED. hb Signatures: Dispatcher [employer] EDMS Julio C Scanlon PA PA cp Baxter, Heather RN RN Collins Valero RN RN Elma Hunter Kelsey Maroul [facility] Jhoana Núñez RN jw7 Corrections: (The following items were deleted from the chart) 05:28 04:00 BP 117 / 107; Pulse 61bpm; Resp 16bpm; Pulse Ox 99%; jb4 jb4 06:02 03:54 contacted [facility], doc to doc was requested on the phone, Riley spoke with md carrera regarding pt. requested another test be done for the pt. deandre
--- NOTE | 2023-06-13 03:21 | EDPHYS ---
Physician Documentation [facility] Name: Rian Merlos Age: 72 yrs Sex: Female : 1950 Arrival Date: 06/13/2023 Time: 00:09 Bed 12 Private MD: ED Physician Prabhjot Foreman HPI: 06/13 00:55 This 72 yrs old Female presents to ER via Wheelchair with complaints of Foot Pain. cp 00:55 The patient presents with pain. The complaints affect the left foot. Context: the cp patient is not able to bear weight, the patient is not able to ambulate. 00:55 Onset: The symptoms/episode began/occurred gradually, and became worse last night. cp Associated signs and symptoms: Pertinent negatives fever, warmth. Historical: - Allergies: 00:45 Morphine; jb4 - PMHx: 00:45 Hyperlipidemia; Hypertension; Myocardial infarction; DVT; jb4 - PSHx: 00:45 stents leg; jb4 - Immunization history:: Adult Immunizations up to date. - Social history:: Smoking status: Patient/guardian denies using tobacco, the patient reports quitting approximately 1 years ago. ROS: 01:00 Constitutional: Negative for body aches, chills, fever, poor PO intake, cp 01:00 MS/extremity: Positive for pain, tenderness, of the left foot, cp 01:00 Respiratory: Negative for cough, shortness of breath, wheezing, cp 01:00 Cardiovascular: Negative for chest pain, edema, palpitations, cp 01:00 Abdomen/GI: Negative for abdominal pain, nausea, vomiting, and diarrhea, 01:00 Neuro: Negative for altered mental status, dizziness, headache, weakness, 01:00 All other systems are negative, Exam: 01:05 Constitutional: The patient appears in no acute distress, alert, awake, non-toxic, well cp developed, well nourished, in obvious pain, uncomfortable, 01:05 Head/Face: Normocephalic, atraumatic. cp 01:05 Eyes: Periorbital structures: appear normal, Conjunctiva: normal, no exudate, no injection, Lids and lashes: appear normal, bilaterally, 01:05 ENT: External ear(s): are unremarkable, Nose: is normal, Mouth: Lips: moist, Oral mucosa: moist, Posterior pharynx: is normal, airway is patent, no erythema, no exudate, 01:05 Chest/axilla: Inspection: normal, 01:05 Cardiovascular: Rate: normal, Rhythm: regular, Edema: is not appreciated, JVD: is not appreciated, 01:05 Respiratory: the patient does not display signs of respiratory distress, Respirations: normal, no use of accessory muscles, no retractions, labored breathing, is not present, Breath sounds: are clear throughout, no decreased breath sounds, no stridor, no wheezing, 01:05 Abdomen/GI: Inspection: abdomen appears normal, 01:05 Musculoskeletal/extremity: Extremities: noted in the left foot: pain, tenderness, second toe amputation, toes with erythematous dusky appearance, DP pulse not palpable, superficial wound plantar side of left great toe, the left foot Severe pain noted. 01:05 Neuro: Orientation: to person, place \T\ time. Mentation: is normal, 04:12 ECG was reviewed by the Attending Physician. cp Vital Signs: 00:42 BP 188 / 72; Pulse 79; Resp 16; Temp 97.7; Pulse Ox 97% on R/A; Weight 48.08 kg (R); jb4 Height 5 ft. 3 in. (R); 02:30 BP 149 / 116; Pulse 66; Resp 16; Pulse Ox 99% on R/A; jb4 04:00 BP 177 / 107; Pulse 61; Resp 16; Pulse Ox 99% ; jb4 05:48 Weight 47.6 kg (M); jb4 06:02 BP 142 / 116; Pulse 60; Resp 16; Pulse Ox 100% on R/A; jb4 07:30 BP 146 / 96; Pulse 61; Resp 16; Pulse Ox 99% on R/A; Pain 9/10; hb 00:42 Body Mass Index 18.78 (47.60 kg, 160.02 cm) jb4 07:30 Pain Scale: Adult hb MDM: 00:43 Patient medically screened. cp 04:33 Data reviewed: vital signs, nurses notes, lab test result(s), radiologic studies, CT cp scan, I have discussed the patient's presentation/case with the attending Emergency Department Physician; and as a result, I will transfer patient. 04:33 Differential diagnosis: closed fracture, contusion, arterial blockage, DVT. Counseling: cp I had a detailed discussion with the patient and/or guardian regarding the historical points, exam findings, and any diagnostic results supporting the discharge/admit diagnosis, lab results, radiology results, the need to transfer to another facility, [facility] does not immediately have the required specialist. Response to treatment: the patient's symptoms have mildly improved after treatment. 06:00 ED course: consult with vascular surgeon at [facility] who will consult and transfer will be to ED. 06/13 03:19 Order name: CBC with Diff; Complete Time: 04:25 06/13 04:25 Interpretation: Reviewed. 06/13 03:19 Order name: BMP; Complete Time: 04:25 cp 06/13 04:25 Interpretation: Normal except: CL 112; GFR 64. 06/13 03:19 Order name: PT-INR; Complete Time: 04:25 06/13 03:19 Order name: Ptt, Activated; Complete Time: 04:25 06/13 00:43 Order name: XRAY Foot LEFT 3 View 06/13 01:07 Order name: Extremity Venous Unilateral Ltd 06/13 01:07 Order name: Lower Extremity Artery Uni Ltd 06/13 03:19 Order name: EKG; Complete Time: 03:19 cp 06/13 03:19 Order name: IV; Complete Time: 03:58 06/13 03:19 Order name: EKG - Nurse/Tech; Complete Time: 04:08 EC:12 Rate is 63 beats/min. Rhythm is regular. TN interval is normal. QRS interval is normal. cp QT interval is normal. T waves are Inverted in lead aVR. Interpreted by me. Reviewed by me. Administered Medications: 02:05 Drug: fentaNYL (PF) IM 25 mcg IM once Route: IM; Site: right gluteus; jb4 04:24 Drug: Ondansetron IVP 4 mg IVP once; over 2 minutes Route: IVP; Site: right antecubital;jb4 04:24 Drug: fentaNYL (PF) IVP 25 mcg IVP once Route: IVP; Site: right antecubital; jb4 06:01 Drug: Heparin (DVT/PE Drip) 18 units/kg/hr - ([place] [address] units, D5W IV 500 ml) IV jb4 at calculated rate Per protocol; Max initial rate 1800 units/hr {Co-Signature: jw7 (Jhoana Núñez RN).} Route: IV; Rate: calculated rate; Site: right antecubital; 07:30 Drug: HYDROmorphone IVP 0.5 mg IVP once Route: IVP; Site: right antecubital; hb Disposition Summary: 06/13/23 03:20 Transfer Ordered Notes: Transfer Location: [facility] cp Reason: Higher level of care cp Condition: Stable cp Problem: new cp Symptoms: have improved cp Accepting Physician: DR Barbara Kang(06/13/23 07:31) hb Diagnosis - Peripheral vascular disease, unspecified cp - Occlusion of Left Superficial Femoral Artery cp Forms: - Medication Reconciliation Form cp - SBAR form cp Signatures: Dispatcher [employer] EDPrabhjot Helton MD MD [facility] Julio C Scanlon PA PA cp Giovana Bravo, RN RN Collins Valero RN RN jb4 Jhoana Núñez RN jw7 Corrections: (The following items were deleted from the chart) 05:55 03:20 doctor cp cp 07:31 05:55 DR Barbara Kang cp hb
[2023-06-13 04:07] LABS: Absolute Lymphocytes (CBC) 3.2 K/uL (0.7-4.9); Hematocrit 36.8 % (36.0-45.0); Lymphocytes % 36.6 % (15.3-44.8); MCV 88.2 fL (80-100); MPV 7.9 fL (7.6-11.3); Platelets 331 thou/uL (152-406); RBC Red Blood Cell Count 4.17 M/uL (3.86-4.86)
[2023-06-13 04:17] LABS: Protime INR 1.07
[2023-06-13 04:21] LABS: Potassium 3.6 mEq/L (3.5-5.1)
[2023-06-13 08:03] VITALS: BP 146/96; TEMP 97.7; O2SAT 99
--- NOTE | 2023-06-13 16:34 | RAD REPORT ---
EXAM DESCRIPTION: RAD - Foot Left 3 View - 06/13/2023 1:25 am CLINICAL HISTORY: 72 years Female, PAIN COMPARISON: None. FINDINGS: 3 views of the left foot. Osseous demineralization. Postsurgical changes related to amputa tion of the second toe distal to the metatarsal. No acute fracture or dislocation identified. No defi nite radiographic evidence of acute osteomyelitis. No soft tissue gas is seen. IMPRESSION: Postsurgical changes related to amputation of the second toe. No acute osseous abnormali ty identified. Electronically signed by: Linda Camejo MD 06/13/2023 01:36 AM DOPE WORKER Due to temporary technical issues with the PACS/Fluency reporting system, reports are being signed by the in house radiologists without review as a courtesy to insure prompt reporting. The interpreting radiologist is fully responsible for the content of the report.
--- NOTE | 2023-06-13 18:15 | RAD REPORT ---
EXAM DESCRIPTION: US - Extremity Venous Uni Ltd - 06/13/2023 1:53 am CLINICAL HISTORY: Pain COMPARISON: US left leg vein 07/05/2022 TECHNIQUE: Grayscale, color Doppler, duplex Doppler, spectral Doppler images and analysis with compr ession and augmentation of left lower extremity veins. FINDINGS: Left common femoral, greater saphenous, femoral, deep (profunda) femoral, popliteal, poste rior tibial veins unremarkable without evidence of clot. IMPRESSION: No sonographic evidence of left lower extremity DVT. Electronically signed by: Eder East MD 06/13/2023 02:06 AM BUCKLER AND LACER Due to temporary technical issues with the PACS/Fluency reporting system, reports are being signed by the in house radiologists without review as a courtesy to insure prompt reporting. The interpreting radiologist is fully responsible for the content of the report.
--- NOTE | 2023-06-13 18:17 | RAD REPORT ---
EXAM DESCRIPTION: US - Lower Extremity Artery Uni Ltd - 06/13/2023 5:30 am CLINICAL HISTORY: Female, 72 years old, PAIN COMPARISON: None. TECHNIQUE: Grayscale and color/spectral Doppler ultrasound of the left lower extremity. FINDINGS: Common femoral: 92 Deep femoral: Not measured Superficial femoral: 89 Popliteal: 23 Anterior tibial: Not measured Posterior tibial: 9 Peroneal: Not measured Dorsalis pedis: 29 Other findings: Diffuse monophasic flow. Minimal detectable (but not measurable) flow within the mid SFA. IMPRESSION: Diffuse monophasic waveforms throughout the assessed left lower extremity, although [place] are not elevated. Diminutive flow within the mid SFA. Findings are equivocal for hemodynamical ly significant stenosis, and angiography may be considered for further characterization. Electronically signed by: Ochoa Quick MD 06/13/2023 02:22 AM JAVA PROGRAMMER Due to temporary technical issues with the PACS/Fluency reporting system, reports are being signed by the in house radiologists without review as a courtesy to insure prompt reporting. The interpreting radiologist is fully responsible for the content of the report.
== END ==
LOC: ER 00:09
DX: I73.9 Peripheral vascular disease, unspecified (principal); I74.3 Embolism and thrombosis of arteries of the lower extremities; Z86.718 Personal history of other venous thrombosis and embolism; Z88.5 Allergy status to narcotic agent
CPT/HCPCS: 93005; 85025; 80048; 36415; 85610; 85730; 73630; 93926; 93971; J3010 ×2; J1170; J2405